=== PATIENT | female | born 1940 | race Caucasian/White ===

== ENCOUNTER → 2023-06-07 11:47 | Outpatient (REF) | payer MEDICARE, SELFPAY ==
[2023-06-07 11:46] LABS: % Basophils 0.3 % (0-2); % Eosinophils 1.3 % (0-6); % Immature Granulocytes 0.5 % (0-0.5); % Neutrophils 65.9 % (42.2-75.2); Absolute Eosinophils 0.1 10^3/uL (0-0.7); Absolute Lymphocytes 1.3 10^3/uL (1.2-3.4); Absolute Monocytes 0.7 10^3/uL (0.1-0.6); Hematocrit 30.6 % (37.0-47.0); Hemoglobin 9.7 g/dL (12.0-16.0); Mean Corp Hgb Conc. 31.7 g/dL (33.0-37.0); Mean Corpuscular Hgb 28.5 pg (27.0-31.0); Mean Platelet Volume 12.1 fL (7.4-10.4); Nucleated Red Blood Cells % 0 %; Platelet Count 144 10^3/uL (130-400); Red Cell Dist. Width 16.3 % (11.5-14.5); White Blood Cell Count 6.1 10^3/uL (4.8-10.8)
[2023-06-07 12:07] LABS: ALT (SGPT) 16 U/L (0-35); AST (SGOT) 22 U/L (14-36); Albumin 3.1 g/dl (3.5-5.0); Alkaline Phosphatase 60 U/L (38-126); Blood Urea Nitrogen 29 mg/dl (7-17); Calcium 9.1 mg/dl (8.4-10.2); Carbon Dioxide 24 mmol/L (22-30); Chloride 102 mmol/L (98-107); Glucose 135 mg/dl (70-99); Potassium 3.9 mmol/L (3.5-5.1); Sodium 135 mmol/L (135-145); Total Bilirubin 0.7 mg/dl (0.2-1.3); Total Protein 5.7 g/dl (6.3-8.2); eGFR 37.56
[2023-06-07 14:59] LABS: Iron 70 ug/dl (37-170)
[2023-06-07 15:09] LABS: Percent Saturation 27 % (20-50); Total Iron Binding Capacity 252 ug/dl (265-497)
== END ==
LOC: OIDL 11:47
PROVIDERS: ATTENDING PHYSICIAN Internal Medicine Hematology & Oncology
DX: C50.212 Malignant neoplasm of upper-inner quadrant of left female breast (principal)
CPT/HCPCS: 80053; 82728; 83540; 83550; 85025

== ENCOUNTER → 2023-08-02 10:09 | Outpatient (REF) | payer MEDICARE, SELFPAY ==
[2023-08-02 10:27] LABS: % Basophils 0.2 % (0-2); % Immature Granulocytes 0.6 % (0-0.5); % Lymphocytes 28.3 % (20.5-51.1); % Monocytes 14.2 % (1.7-9.3); % Neutrophils 55.7 % (42.2-75.2); Absolute Eosinophils 0.1 10^3/uL (0-0.7); Absolute Lymphocytes 1.4 10^3/uL (1.2-3.4); Absolute Monocytes 0.7 10^3/uL (0.1-0.6); Absolute Neutrophils 2.8 10^3/uL (1.4-6.5); Hematocrit 32.3 % (37.0-47.0); Mean Corpuscular Hgb 27.5 pg (27.0-31.0); Mean Platelet Volume 11.3 fL (7.4-10.4); Platelet Count 156 10^3/uL (130-400); Red Blood Cell Count 3.63 10^6/uL (4.20-5.40); Red Cell Dist. Width 18.3 % (11.5-14.5)
[2023-08-02 11:42] LABS: ALT (SGPT) 16 U/L (0-35); AST (SGOT) 25 U/L (14-36); Albumin 3.5 g/dl (3.5-5.0); Alkaline Phosphatase 55 U/L (38-126); Blood Urea Nitrogen 30 mg/dl (7-17); Calcium 9.6 mg/dl (8.4-10.2); Carbon Dioxide 23 mmol/L (22-30); Chloride 108 mmol/L (98-107); Glucose 152 mg/dl (70-99); Iron 93 ug/dl (37-170); Potassium 3.9 mmol/L (3.5-5.1); Sodium 135 mmol/L (135-145); Total Bilirubin 0.8 mg/dl (0.2-1.3); Total Protein 6.1 g/dl (6.3-8.2)
[2023-08-02 11:51] LABS: Percent Saturation 37 % (20-50); Total Iron Binding Capacity 245 ug/dl (265-497)
== END ==
LOC: OIDL 10:09
PROVIDERS: ATTENDING PHYSICIAN Internal Medicine Hematology & Oncology
DX: C50.212 Malignant neoplasm of upper-inner quadrant of left female breast (principal)
CPT/HCPCS: 36415; 80053; 82565; 82728; 83540; 83550; 85025

== ENCOUNTER → 2023-08-10 11:12 | Outpatient (REF) | payer MEDICARE, SELFPAY ==
[2023-08-10 13:17] LABS: Blood Urea Nitrogen 23 mg/dl (7-17); Calcium 9.3 mg/dl (8.4-10.2); Carbon Dioxide 21 mmol/L (22-30); Chloride 107 mmol/L (98-107); Glucose 152 mg/dl (70-99); Potassium 3.9 mmol/L (3.5-5.1); Sodium 135 mmol/L (135-145)
== END ==
LOC: HWLAB 11:12
PROVIDERS: ATTENDING PHYSICIAN Physician Assistant; FAMILY PHYSICIAN Physician Assistant
DX: I50.22 Chronic systolic (congestive) heart failure (principal)
CPT/HCPCS: 36415; 80048

== ENCOUNTER → 2023-08-30 10:21 | Outpatient (REF) | payer MEDICARE, SELFPAY ==
[2023-08-30 10:45] LABS: % Basophils 0.4 % (0-2); % Eosinophils 0.8 % (0-6); % Immature Granulocytes 0.2 % (0-0.5); % Lymphocytes 25.9 % (20.5-51.1); % Monocytes 9.1 % (1.7-9.3); % Neutrophils 63.6 % (42.2-75.2); Absolute Lymphocytes 1.3 10^3/uL (1.2-3.4); Absolute Monocytes 0.4 10^3/uL (0.1-0.6); Absolute Neutrophils 3.1 10^3/uL (1.4-6.5); Hematocrit 37.5 % (37.0-47.0); Hemoglobin 11.9 g/dL (12.0-16.0); Mean Corp Hgb Conc. 31.7 g/dL (33.0-37.0); Mean Corpuscular Hgb 27.7 pg (27.0-31.0); Mean Corpuscular Volume 87.4 fL (81.0-99.0); Mean Platelet Volume 10.8 fL (7.4-10.4); Platelet Count 133 10^3/uL (130-400); Red Blood Cell Count 4.29 10^6/uL (4.20-5.40); Red Cell Dist. Width 16.8 % (11.5-14.5); White Blood Cell Count 4.8 10^3/uL (4.8-10.8)
[2023-08-30 11:53] LABS: ALT (SGPT) 16 U/L (0-35); AST (SGOT) 26 U/L (14-36); Albumin 3.6 g/dl (3.5-5.0); Alkaline Phosphatase 57 U/L (38-126); Blood Urea Nitrogen 33 mg/dl (7-17); Calcium 9.4 mg/dl (8.4-10.2); Carbon Dioxide 25 mmol/L (22-30); Chloride 104 mmol/L (98-107); Glucose 133 mg/dl (70-99); Iron 118 ug/dl (37-170); Sodium 132 mmol/L (135-145); Total Bilirubin 0.6 mg/dl (0.2-1.3); Total Protein 6.2 g/dl (6.3-8.2); eGFR 34.58
[2023-08-30 12:02] LABS: Percent Saturation 50 % (20-50); Total Iron Binding Capacity 236 ug/dl (265-497)
== END ==
LOC: OIDL 10:21
PROVIDERS: Internal Medicine Cardiovascular Disease; ATTENDING PHYSICIAN Internal Medicine Hematology & Oncology; FAMILY PHYSICIAN Physician Assistant
DX: C50.212 Malignant neoplasm of upper-inner quadrant of left female breast (principal)
CPT/HCPCS: 36415; 80048; 80053; 82728; 83540; 83550; 85025

== ENCOUNTER → 2023-09-20 09:16 | Outpatient (REF) | payer MEDICARE, SELFPAY ==
[2023-09-20 12:14] LABS: % Basophils 0.7 % (0-2); % Eosinophils 1.6 % (0-6); % Immature Granulocytes 0.2 % (0-0.5); % Lymphocytes 41.9 % (20.5-51.1); % Monocytes 13.7 % (1.7-9.3); % Neutrophils 41.9 % (42.2-75.2); Absolute Eosinophils 0.1 10^3/uL (0-0.7); Absolute Lymphocytes 2.4 10^3/uL (1.2-3.4); Absolute Monocytes 0.8 10^3/uL (0.1-0.6); Absolute Neutrophils 2.4 10^3/uL (1.4-6.5); Hematocrit 34.2 % (37.0-47.0); Hemoglobin 10.9 g/dL (12.0-16.0); Mean Corp Hgb Conc. 31.9 g/dL (33.0-37.0); Mean Corpuscular Hgb 27.6 pg (27.0-31.0); Mean Corpuscular Volume 86.6 fL (81.0-99.0); Mean Platelet Volume 11.5 fL (7.4-10.4); Nucleated Red Blood Cells % 0 %; Platelet Count 142 10^3/uL (130-400); Red Blood Cell Count 3.95 10^6/uL (4.20-5.40); Red Cell Dist. Width 17.1 % (11.5-14.5); White Blood Cell Count 5.6 10^3/uL (4.8-10.8)
[2023-09-20 12:21] LABS: Erythrocyte Sed Rate 24 mm/hour (0-20)
[2023-09-20 12:29] LABS: ALT (SGPT) 14 U/L (0-35); AST (SGOT) 22 U/L (14-36); Albumin 3.3 g/dl (3.5-5.0); Alkaline Phosphatase 59 U/L (38-126); Blood Urea Nitrogen 26 mg/dl (7-17); Calcium 9.4 mg/dl (8.4-10.2); Carbon Dioxide 27 mmol/L (22-30); Chloride 105 mmol/L (98-107); Glucose 100 mg/dl (70-99); Potassium 4.2 mmol/L (3.5-5.1); Sodium 137 mmol/L (135-145); Total Bilirubin 0.7 mg/dl (0.2-1.3); Total Protein 5.9 g/dl (6.3-8.2); eGFR 34.36
[2023-09-20 12:39] LABS: C-Reactive Protein < 5.00 mg/L (0.0-10.00)
== END ==
LOC: HWLAB 09:16
PROVIDERS: ATTENDING PHYSICIAN Internal Medicine Rheumatology; FAMILY PHYSICIAN Physician Assistant
DX: M05.9 Rheumatoid arthritis with rheumatoid factor, unspecified (principal)
CPT/HCPCS: 36415; 80053; 85025; 85652; 86140

== ENCOUNTER → 2023-09-27 09:13 | Outpatient (REF) | payer MEDICARE, SELFPAY ==
[2023-09-27 09:37] LABS: % Basophils 0.2 % (0-2); % Eosinophils 1.7 % (0-6); % Immature Granulocytes 0.2 % (0-0.5); % Lymphocytes 32.9 % (20.5-51.1); % Monocytes 11.1 % (1.7-9.3); % Neutrophils 53.9 % (42.2-75.2); Absolute Eosinophils 0.1 10^3/uL (0-0.7); Absolute Lymphocytes 1.3 10^3/uL (1.2-3.4); Absolute Monocytes 0.5 10^3/uL (0.1-0.6); Absolute Neutrophils 2.2 10^3/uL (1.4-6.5); Hematocrit 33.7 % (37.0-47.0); Hemoglobin 10.7 g/dL (12.0-16.0); Mean Corp Hgb Conc. 31.8 g/dL (33.0-37.0); Mean Corpuscular Hgb 27.9 pg (27.0-31.0); Mean Platelet Volume 10.4 fL (7.4-10.4); Platelet Count 121 10^3/uL (130-400); Red Blood Cell Count 3.83 10^6/uL (4.20-5.40); Red Cell Dist. Width 16.7 % (11.5-14.5); White Blood Cell Count 4.1 10^3/uL (4.8-10.8)
[2023-09-27 11:00] LABS: Blood Urea Nitrogen 22 mg/dl (7-17); Iron 69 ug/dl (37-170)
[2023-09-27 11:08] LABS: Percent Saturation 30 % (20-50); Total Iron Binding Capacity 228 ug/dl (265-497)
== END ==
LOC: OIDL 09:13
PROVIDERS: ATTENDING PHYSICIAN Internal Medicine Hematology & Oncology; FAMILY PHYSICIAN Physician Assistant
DX: C50.212 Malignant neoplasm of upper-inner quadrant of left female breast (principal)
CPT/HCPCS: 36415; 82565; 82728; 83540; 83550; 84520; 85025

== ENCOUNTER → 2023-10-25 09:24 | Outpatient (REF) | payer MEDICARE, SELFPAY ==
[2023-10-25 09:48] LABS: % Basophils 0.4 % (0-2); % Eosinophils 1.5 % (0-6); % Immature Granulocytes 0.2 % (0-0.5); % Lymphocytes 31.4 % (20.5-51.1); % Monocytes 12.3 % (1.7-9.3); % Neutrophils 54.2 % (42.2-75.2); Absolute Eosinophils 0.1 10^3/uL (0-0.7); Absolute Lymphocytes 1.5 10^3/uL (1.2-3.4); Absolute Monocytes 0.6 10^3/uL (0.1-0.6); Absolute Neutrophils 2.5 10^3/uL (1.4-6.5); Hematocrit 36.2 % (37.0-47.0); Hemoglobin 11.4 g/dL (12.0-16.0); Mean Corp Hgb Conc. 31.5 g/dL (33.0-37.0); Mean Corpuscular Hgb 27.6 pg (27.0-31.0); Mean Corpuscular Volume 87.7 fL (81.0-99.0); Mean Platelet Volume 11.2 fL (7.4-10.4); Platelet Count 121 10^3/uL (130-400); Red Blood Cell Count 4.13 10^6/uL (4.20-5.40); Red Cell Dist. Width 17.2 % (11.5-14.5); White Blood Cell Count 4.6 10^3/uL (4.8-10.8)
[2023-10-25 10:35] LABS: ALT (SGPT) 15 U/L (0-35); AST (SGOT) 24 U/L (14-36); Albumin 3.7 g/dl (3.5-5.0); Alkaline Phosphatase 55 U/L (38-126); Blood Urea Nitrogen 30 mg/dl (7-17); Calcium 9.8 mg/dl (8.4-10.2); Carbon Dioxide 23 mmol/L (22-30); Chloride 107 mmol/L (98-107); Glucose 107 mg/dl (70-99); Sodium 137 mmol/L (135-145); Total Bilirubin 0.8 mg/dl (0.2-1.3); Total Protein 6.2 g/dl (6.3-8.2)
== END ==
LOC: OIDL 09:24
PROVIDERS: ATTENDING PHYSICIAN Internal Medicine Hematology & Oncology; FAMILY PHYSICIAN Family Medicine
DX: C50.212 Malignant neoplasm of upper-inner quadrant of left female breast (principal)
CPT/HCPCS: 36415; 80053; 85025

== ENCOUNTER 2023-11-11 20:44 | Inpatient (IN) | payer MEDICARE, SELFPAY ==
[2023-11-11] VITALS (7 sets, daily range): BP systolic 149–189; BP diastolic 62–96; BMI 26.3; BMI 25.9
--- NOTE | 2023-11-11 17:33 | ED.GENMED ---
History of Present Illness
General
Chief Complaint: Abdominal Symptoms
Source: patient and family
Time Seen by Provider: 11/11/23 17:17
History of Present Illness
History of Present Illness:
83yoF with a history of breast cancer, atrial fibrillation on Xarelto, rheumatoid arthritis on daily prednisone, hypertension presenting with her daughter for malaise x 1 week. Patient reports multiple vague symptoms including nausea, decreased
appetite, and feeling cold over the past week. Daughter states she has not been eating or drinking much despite encouragement. Patient states she just does not feel well. She denies any fevers. Patient is also experiencing diarrhea although she
states this is chronic for her. She denies any fevers, chest pain, shortness of breath, abdominal pain, headache. No recent falls.
Past History
Past History
ED Past Medical History: Negative HTN, Hypercholesterolemia or IDDM
ED Past Surgical History: Orthopedic; Negative Appendectomy or Brain
Social History
Tobacco: Non-smoker
Alcohol: Occasional
Drug: None
Personal:
Living: with family
Employment: Retired
Family History
Family History: Hypertension
Phy Exam
Physical Exam
Physical Exam:
Elderly female resting in bed. Appears fatigued, non-toxic.
General Physical Exam
General Presentation: well appearing and no apparent distress
General Skin: warm and dry
General Habitus: elderly
General Mental: alert
Cardiovascular Exam
Cardiovascular Exam: regular rate/rhythm
Heart Sounds: normal
Pulmonary Exam
Pulmonary Exam: lungs clear, no respiratory distress, no rales, no crackles, no rhonchi and no wheezing
Gastrointestinal Exam
Gastrointestinal Exam: non tender, soft and non distended
Musculoskeletal Exam
Musculoskeletal Exam: no edema
Course
Orders/Labs/Results
Orders:
Orders
11/11/23 17:05
Electrocardiogram (*1) Urgent
Reason for Study: Abdominal Pain
EKG- Treatment ONCE
11/11/23 17:32
0.9% Sodium Chloride 500 ml [Nss] 500 ml IV BOLUS
Ondansetron Injectable [Zofran] 4 mg IV NOW STA
11/11/23 17:33
CR Chest - 2 Views Urgent
Comment:
Reason For Exam: Nausea
11/11/23 18:20
Complete Blood Count/With Diff Urgent
Comprehensive Metabolic Panel Urgent
Lipase Urgent
Magnesium Urgent
Troponin I Urgent
11/11/23 18:30
Urinalysis Reflex To Culture Urgent
Date Specimen was Collected: 11/11/23
Time Specimen was Collected: 17:35
11/11/23 19:20
Magnesium Sulfate 1 grams 0.9% Sodium Chloride 100 ml [Nss] 100 ml IV NOW
11/11/23 20:27
Admit/Transfer Patient As Directed
Co-Sign Provider:
Level of Care: Inpatient admission
Assign to:: Telemetry
Physician / Group: Hospitalist
Diagnosis: Malaise
Reason for Telemetry: Arrhythmia
Date to Stop Telemetry: 11/14/23
Time to Stop Telemetry: 11:00
Reason for Hospitalization: malaise, hypovolemic hyponatremia
Expected length of stay greater than two midnights?: Yes
ELOS- Estimated Length of Stay in days: 3
I certify the patient meets the requirements for IP care: Yes
11/11/23 20:32
Code Status As Directed
Resuscitation Status: Do not resuscitate
Reached after discussion with pt or family/Healthcare POA: Yes
Decision communicated with: patient and daughter at the bedside
DNR Bracelet Application ONCE
11/14/23 11:00
DC Protocol for Telemetry ONCE
Abnormal Lab Results
11/11/23
18:20
RBC 3.79 L 10^6/uL
(4.20-5.40)
Hgb 10.4 L g/dL
(12.0-16.0)
Hct 31.2 L %
(37.0-47.0)
RDW 16.2 H %
(11.5-14.5)
Plt Count 107 L 10^3/uL
(130-400)
MPV 12.3 H fL
(7.4-10.4)
Absolute Monos (auto) 0.9 H 10^3/uL
(0.1-0.6)
Monocytes % 16.9 H %
(1.7-9.3)
Sodium 128 L mmol/L
(135-145)
Carbon Dioxide 20 L mmol/L
(22-30)
BUN 24 H mg/dl
(7-17)
Magnesium 1.4 L mg/dl
(1.6-2.3)
Total Protein 5.9 L g/dl
(6.3-8.2)
Albumin 3.4 L g/dl
(3.5-5.0)
11/11/23 18:20
11/11/23 18:20
Vital Signs
Initial and Last Documented VS:
Initial Vital Signs
Pulse Resp BP Pulse Ox
71 20 149/89 98
11/11/23 16:49 11/11/23 16:49 11/11/23 16:49 11/11/23 16:49
Last Documented Vital Signs
Pulse Resp BP Pulse Ox
62 16 169/63 97
11/11/23 20:30 11/11/23 20:30 11/11/23 20:00 11/11/23 20:30
MDM/Problems Addressed
Differential Diagnosis Includes:
83yoF presenting for multiple vague symptoms. Patient has been feeling unwell x 1 week. She reports nausea, decreased p.o. intake, and feeling cold. She is afebrile and hemodynamically stable. Patient appears fatigued but is nontoxic. Remainder
of exam is reassuring. Differential diagnosis is broad as presentation is nonspecific. Differential diagnosis includes but is not limited to: Gastroenteritis, dehydration, electrolyte abnormality, LILA, ACS, infection
Initial ED plan: Check cardiac labs, magnesium, UA, EKG, chest x-ray. IV Zofran and fluid bolus for symptoms.
*EKG
Interpreted by ED Provider?: Yes
EKG Intrepretation Date: 11/11/23
Heart Rate: 66
Rate: normal
Rhythm: sinus
[place]: normal axis
Interval: normal interval
QRS Pattern: normal QRS
Ischemia: no ischemia
*Critical Care Note
Total Time (30-74mins, 75-104mins- exclusive of procedures): Not Applicable
Update Note
Update Note:
Labs reveal a sodium of 128 which appears new. Magnesium 1.4 which was replaced. Remainder of labs overall unremarkable. No ischemic changes on EKG and troponin is normal. Chest x-ray shows small left pleural effusion but otherwise negative for
acute findings. Given electrolyte abnormalities and degree of weakness, she was admitted for further management.
ED Attending Note
-
Portions of this chart may have been created with voice recognition software.� Occasional wrong word or��sound alike� substitutions may have occurred due to the inherent limitations of voice recognition software.
Discharge Plan
Departure
Patient Disposition: Admit
Date of Disposition: 11/11/23
Time of Disposition: 20:15
Presentation/result/management discussed w/ accepting MD/DO: Hospitalist
Discharge Problem:
Malaise, Nausea, Acute hyponatremia, Hypomagnesemia
Interventions
Interventions:
*Risk Screen - Suicide Last Done: 11/11/23 16:58
*General Assessment Last Done: 11/11/23 16:58
*Neglect/Abuse Screening Last Done: 11/11/23 16:58
ED- Fall Risk Assessment Last Done: 11/11/23 16:58
*ED COVID-19 Vaccine History Last Done: 11/11/23 16:58
BU-Icmxex-Hqyyhpgajo Assessment Last Done: 11/11/23 16:58
[2023-11-11] MEDS: NSS 500 IV (18:22)
[2023-11-11] MEDS: ZOFRAN 4 MG IV (18:26)
[2023-11-11 18:45] LABS: Urine Albumin Negative (Neg - Trace); Urine Bilirubin Negative (Negative); Urine Character Clear (Clear); Urine Color Straw; Urine Glucose Negative (Negative); Urine Ketone Negative (Negative); Urine Leukocyte Negative (Negative); Urine Nitrite Negative (Negative); Urine Occult Blood Negative (Negative); Urine Urobilinogen Negative (Neg - 1+); Urine pH 6.5 (5.0-9.0)
[2023-11-11 18:47] LABS: % Basophils 0.4 % (0-2); % Immature Granulocytes 0.2 % (0-0.5); % Lymphocytes 32.1 % (20.5-51.1); % Monocytes 16.9 % (1.7-9.3); % Neutrophils 49.4 % (42.2-75.2); Absolute Eosinophils 0.1 10^3/uL (0-0.7); Absolute Lymphocytes 1.6 10^3/uL (1.2-3.4); Absolute Monocytes 0.9 10^3/uL (0.1-0.6); Absolute Neutrophils 2.5 10^3/uL (1.4-6.5); Hematocrit 31.2 % (37.0-47.0); Hemoglobin 10.4 g/dL (12.0-16.0); Mean Corp Hgb Conc. 33.3 g/dL (33.0-37.0); Mean Corpuscular Hgb 27.4 pg (27.0-31.0); Mean Corpuscular Volume 82.3 fL (81.0-99.0); Mean Platelet Volume 12.3 fL (7.4-10.4); Nucleated Red Blood Cells % 0 %; Platelet Count 107 10^3/uL (130-400); Red Blood Cell Count 3.79 10^6/uL (4.20-5.40); Red Cell Dist. Width 16.2 % (11.5-14.5); White Blood Cell Count 5.1 10^3/uL (4.8-10.8)
[2023-11-11 19:01] LABS: ALT (SGPT) 16 U/L (0-35); AST (SGOT) 31 U/L (14-36); Albumin 3.4 g/dl (3.5-5.0); Alkaline Phosphatase 63 U/L (38-126); Blood Urea Nitrogen 24 mg/dl (7-17); Calcium 9.3 mg/dl (8.4-10.2); Carbon Dioxide 20 mmol/L (22-30); Chloride 100 mmol/L (98-107); Estimated Creatinine Clearance 32 ml/min; Glucose 88 mg/dl (70-99); Magnesium 1.4 mg/dl (1.6-2.3); Potassium 4.2 mmol/L (3.5-5.1); Sodium 128 mmol/L (135-145); Total Bilirubin 0.7 mg/dl (0.2-1.3); Total Protein 5.9 g/dl (6.3-8.2)
[2023-11-11 19:02] LABS: Lipase 212 U/L (23-300)
[2023-11-11 19:03] LABS: Troponin I < 0.012 ng/ml
--- NOTE | 2023-11-11 20:09 | HPS.HSE ---
Family Physician
-
Family Physician: NOT KNOW UNKNOWN - PT DOES
Chief Complaint
-
malaise
History of Present Illness
83yo woman with a history of breast cancer, atrial fibrillation on Xarelto, rheumatoid arthritis on daily prednisone, hypertension presenting with her daughter for malaise x 1 week. Patient states that she has been feeling cold, and has had mild
nausea. No other particular focal symptoms or complaints. When asked about the pleural effusion seen on the x-ray, she states she believes this is a chronic issue. She has received a cardioversion in the past for afib.
Medical History
Past Medical History
Past Medical History: Reports Other
Additional Past Medical History:
Rheumatoid arthritis involving multiple sites,
Persistent atrial fibrillation
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
Generalized anxiety disorder
Mixed hyperlipidemia
Malignant neoplasm of right female breast, unspecified estrogen receptor status,
Moderate episode of recurrent major depressive disorder
Type 2 diabetes mellitus without complication, without long-term current use of insulin
Essential hypertension
Past Surgical History: Reports Other
Additional Past Surgical History:
See above
Social History
Tobacco: Non-smoker
Alcohol: None
Drug: None
Employment: Not Employed
Family History
Family History: Not pertinent
Allergies / Home Medications
Allergies reflects when Allergies were last updated in [employer].
Home Medications with original date entered in [employer]
Allergy/Medication List:
Allergies
Allergy/AdvReac Type Severity Reaction Status Date / Time
aspirin [Aspirin] Allergy Shortness Verified 11/11/23 16:50
of Breath
Home Medications
Lactobacillus acidophilus 10 billion cell capsule (Probiotic) 10,000 mmu cells PO DAILY 03/20/23
amiodarone 200 mg tablet 200 mg PO BID 03/20/23
atorvastatin 10 mg tablet 10 mg PO QPM 03/20/23
cholecalciferol (vitamin D3) 25 mcg (1,000 unit) tablet (Vitamin D3) 25 mcg PO DAILY 03/20/23
gabapentin 100 mg capsule 100 mg PO BID 03/20/23
leflunomide 20 mg tablet 20 mg PO DAILY 03/20/23
metformin 500 mg tablet 500 mg PO QPM 03/20/23
metoprolol tartrate 100 mg tablet 50 mg PO BID 03/20/23
multivitamin 1 tab PO DAILY 03/20/23
prednisone 2.5 mg tablet 2.5 mg PO DAILY 03/20/23
rivaroxaban 15 mg tablet (Xarelto) 15 mg PO QPM 03/20/23
Review of Systems
-
History Source: Patient
A 12 point ROS was completed and negative except as noted: Yes
Constitutional: Reports Other (feels cold)
Physical Exam
Vital Signs
Vital Signs
Pulse Resp BP Pulse Ox
62 13 161/71 98
11/11/23 19:15 11/11/23 19:15 11/11/23 19:00 11/11/23 19:15
Physical Exam
General: Well Developed, Well Nourished, No Apparent Distress, Comfortable and Conversant
HEENT: NormoCephalic, Moist mucous membranes, No Ptosis, Nose Appears Normal and Ears Appear Normal
Respiratory: Clear and Decreased Breath Sounds
Cardiac: S1/S2 and Regular Rhythm
GI: Soft, Non Tender and Non Distended
Musculoskeletal: No Clubbing, No Cyanosis and No Edema
Skin: Warm and Dry; No Rash or Jaundice
Neuro: Awake, Alert and Oriented
Psych: Calm
Laboratory Results
-
11/11/23 18:20
11/11/23 18:20
Laboratory Results
Total Bilirubin 0.7 mg/dl (0.2-1.3) 11/11/23 18:20
AST 31 U/L (14-36) 11/11/23 18:20
ALT 16 U/L (0-35) 11/11/23 18:20
Alkaline Phosphatase 63 U/L (38-126) 11/11/23 18:20
Troponin I < 0.012 ng/ml 11/11/23 18:20
Lipase 212 U/L (23-300) 11/11/23 18:20
Data Reviewed
-
Lab Data: Labs Reviewed by me
Impression/Plan
-
IMPRESSION:
83 woman with malaise and the following findings:
Na 128
Mag 1.4
BUN/Creat 24/1.0; ratio >20
CXR -> pleural effusion
UA does not show obvious infection
PLAN:
1. Malaise - source unclear, but may be related to electrolyte imbalance. Could also be from med side effects.
Fix electrolytes
PT consult in am
Check TSH
2. Mild anemia, likely from chronic illnesses. No indication for transfusion at this time.
Check H/H in am
3. Low Na, Low mag, could be from SIADH, given effusion, but hypovolemic tonight.
Fix now given acute symptoms
Follow closely as outpatient once fixed
may end up needing free water restriction
4. BUN/Creat > 20
Iv saline tonight
Recheck in am
5. Pleural effusion
try to obtain outpatient records to see if chronic
If new, consider pleuracentesis
Code: DNR (witnessed by daughter at bedside)
VCD for DVTp
[2023-11-11] MEDS: MAGNESIUM SULFATE 102 GRAMS IV (20:11)
--- NOTE | 2023-11-11 22:09 | PTCARENOTE ---
Pt arrived to unit @2200 assisted x1 with staff to bed. Pt AAOx3 able to make needs known, denies chest pain VSS. Oriented to room and hospital policies call garcia within reach
[2023-11-11] MEDS: NSS 1000 IV (22:26)
[2023-11-11] MEDS: COMPAZINE 5 MG IV (23:13)
[2023-11-12] VITALS (8 sets, daily range): BP systolic 136–178; BP diastolic 62–92
[2023-11-12 05:24] LABS: Hematocrit 26.7 % (37.0-47.0); Hemoglobin 8.9 g/dL (12.0-16.0); Mean Corp Hgb Conc. 33.3 g/dL (33.0-37.0); Mean Corpuscular Hgb 27.4 pg (27.0-31.0); Mean Corpuscular Volume 82.2 fL (81.0-99.0); Mean Platelet Volume 12.2 fL (7.4-10.4); Platelet Count 102 10^3/uL (130-400); Red Blood Cell Count 3.25 10^6/uL (4.20-5.40); Red Cell Dist. Width 15.9 % (11.5-14.5); White Blood Cell Count 4.2 10^3/uL (4.8-10.8)
[2023-11-12 05:49] LABS: Blood Urea Nitrogen 19 mg/dl (7-17); Calcium 8.5 mg/dl (8.4-10.2); Carbon Dioxide 23 mmol/L (22-30); Chloride 105 mmol/L (98-107); Estimated Creatinine Clearance 30 ml/min; Glucose 74 mg/dl (70-99); Magnesium 1.4 mg/dl (1.6-2.3); Potassium 3.8 mmol/L (3.5-5.1); Sodium 131 mmol/L (135-145); eGFR 49.86
[2023-11-12 06:01] LABS: Troponin I < 0.012 ng/ml
[2023-11-12 06:21] LABS: TSH 2.28 uIU/ml (0.47-4.68)
[2023-11-12] MEDS: VITAMIN D3 (cholecalciferol) 25 MCG PO (07:55)
[2023-11-12] MEDS: VISBIOME 1 CAP PO (07:55)
[2023-11-12] MEDS: DELTASONE 2.5 MG PO (07:55)
[2023-11-12] MEDS: PACERONE 200 MG PO ×2 (07:55→20:05)
[2023-11-12] MEDS: NEURONTIN 100 MG PO ×2 (07:55→20:05)
[2023-11-12] MEDS: LOPRESSOR 50 MG PO ×2 (07:56→20:05)
[2023-11-12] MEDS: NSS 1000 IV (07:58)
[2023-11-12] MEDS: MAGNESIUM SULFATE 100 IV (09:25)
[2023-11-12 10:05] LABS: Iron 59 ug/dl (37-170)
[2023-11-12 10:14] LABS: Percent Saturation 28 % (20-50); Total Iron Binding Capacity 207 ug/dl (265-497)
[2023-11-12 10:37] LABS: Cortisol, Random 5.8 ug/dl
[2023-11-12] MEDS: ZOFRAN 4 MG IV (12:14)
[2023-11-12] MEDS: OMNIPAQUE 50 ML PO (12:33)
[2023-11-12 13:10] LABS: COVID-19 Antigen Negative (Negative)
--- NOTE | 2023-11-12 13:10 | CM ---
Reviewed the chart notes and spoke with the patient at the bedside. The patient resides with her daughter in a two story home with one step to enter. The patient has a rolling walker and stair glide. The patient reports being in a SNF in [place]
and having [place] in [place]. The patient confirmed her pharmacy of choice is [facility]. CM continues to be available to patient/family and is monitoring medical plan for needs at discharge.
Plan: Discharge plans will depend on the patient's progress.
--- NOTE | 2023-11-12 13:12 | W.PN.HOSP.TC ---
Today's Communication/Plan
-
pt/ot
ct imaging
symptomatic control
monitor electrolytes, Na, Mag with resuscitation
Assessment / Plan
Assessment / Plan
Physical Exam
General: Well Developed, Well Nourished, No Apparent Distress, Comfortable and Conversant
HEENT: NormoCephalic, Moist mucous membranes, No Ptosis, Nose Appears Normal and Ears Appear Normal
Respiratory: Clear and Decreased Breath Sounds
Cardiac: S1/S2 and Regular Rhythm
GI: Soft, Non Tender and Non Distended
Musculoskeletal: No Clubbing, No Cyanosis and No Edema
Skin: Warm and Dry; No Rash or Jaundice
Neuro: Awake, Alert and Oriented
Psych: Calm
83 woman with malaise
#Continuous weakness/Malaise
-has symptoms of chills over the week; on chronic steroids; only 3-4 lb weight loss in 3-4 months (lack of diet)
-Possibly 2/2 to hyponatremia v other infectious etiology
-cannot remember last colonoscopy
-PT/OT
-monitor fever curve, wbc
-COVID, flu Swab
-Iron sat ok
-Random cortisol WNL, TSH WNL
-CT A/P without contrast + oral contast due to decreased renal clearance in setting of persistent weakness/nausea
-no urinary symptoms
#Mild anemia, likely from chronic illnesses. No indication for transfusion at this time.
Check H/H in am
#Hyponatremia, mild
-monitor with resuscitation
# Pleural effusion
states chronic
-may need thora for eval
-ct imaging for better eval
#Hypomagnesemia
-monitor and replete
DM
-hold meteformin
-aiss
Code: DNR (witnessed by daughter at bedside)
Xarelto for DVTp
Total time spent on today's encounter was 50 minutes which included time spent in counseling the patient/family regarding diagnosis and treatment plan as listed above, goals of care, and symptom management. Case was discussed with nursing staff,
specialists, and care coordinators/case management. All labs and imaging personally reviewed by me. Remainder the time spent in detailed review of previous records, lab data, imaging, and other medical provider documentation.
Anticipated Discharge: 24 - 48 hours
Subjective/Interval History
-
Date of Service: November 12, 2023
still nauseous
Objective Data
-
Labs:
Laboratory Results
11/12/23
05:11
WBC 4.2 L
Hgb 8.9 L
Hct 26.7 L
Plt Count 102 L
Sodium 131 L
Potassium 3.8
Chloride 105
Carbon Dioxide 23
BUN 19 H
Creatinine 1.1 H
Glucose 74
Calcium 8.5
Vital Signs:
Vital Signs
Temp Pulse Resp BP Pulse Ox
97.6 F 58 16 156/70 98
11/12/23 11:15 11/12/23 11:15 11/12/23 11:15 11/12/23 11:15 11/12/23 11:15
I&O
11/11/23 11/12/23 11/13/23
06:59 06:59 06:59
Intake Total 1220 / 1220
Output Total 250 / 250
Balance 970 / 970
Review of Systems
-
History Source: Patient
All other systems: Not reviewed unless documented
Data Reviewed
-
Diagnostic Radiology: Image personally visualized and interpreted and Report Reviewed by me
Labs: Labs Reviewed by me
[2023-11-12] MEDS: LR 1000 IV (13:43)
[2023-11-12 16:45] LABS: Glucose - Point of Care 144 mg/dl (70-99)
[2023-11-12] MEDS: NOVOLOG FLEXPEN-LOW RESISTANCE SC (17:35)
[2023-11-12] MEDS: XARELTO 15 MG PO (17:36)
[2023-11-12] MEDS: LIPITOR 10 MG PO (17:36)
[2023-11-12 22:17] LABS: Glucose - Point of Care 116 mg/dl (70-99)
[2023-11-13] VITALS (9 sets, daily range): BP systolic 127–181; BP diastolic 54–72; PULSE 88; O2SAT 98; BMI 25.9
[2023-11-13] MEDS: LR 1000 IV (02:04)
[2023-11-13 05:40] LABS: Hematocrit 27.9 % (37.0-47.0); Hemoglobin 9.5 g/dL (12.0-16.0); Mean Corp Hgb Conc. 34.1 g/dL (33.0-37.0); Mean Corpuscular Hgb 27.9 pg (27.0-31.0); Mean Corpuscular Volume 82.1 fL (81.0-99.0); Mean Platelet Volume 12.3 fL (7.4-10.4); Platelet Count 109 10^3/uL (130-400); Red Cell Dist. Width 15.9 % (11.5-14.5); White Blood Cell Count 4.1 10^3/uL (4.8-10.8)
[2023-11-13] MEDS: LR IV (05:50)
[2023-11-13 05:56] LABS: ALT (SGPT) 14 U/L (0-35); AST (SGOT) 28 U/L (14-36); Albumin 2.9 g/dl (3.5-5.0); Alkaline Phosphatase 53 U/L (38-126); Blood Urea Nitrogen 13 mg/dl (7-17); Calcium 8.6 mg/dl (8.4-10.2); Carbon Dioxide 23 mmol/L (22-30); Chloride 103 mmol/L (98-107); Estimated Creatinine Clearance 41 ml/min; Glucose 83 mg/dl (70-99); Magnesium 2.1 mg/dl (1.6-2.3); Potassium 4.1 mmol/L (3.5-5.1); Sodium 129 mmol/L (135-145); Total Bilirubin 0.7 mg/dl (0.2-1.3); Total Protein 5.1 g/dl (6.3-8.2); eGFR > 60.00
[2023-11-13 07:13] LABS: Glucose - Point of Care 83 mg/dl (70-99)
[2023-11-13] MEDS: NEURONTIN 100 MG PO ×2 (07:52→19:55)
[2023-11-13] MEDS: NOVOLOG FLEXPEN-LOW RESISTANCE SC ×3 (07:52→16:56)
[2023-11-13] MEDS: VISBIOME 1 CAP PO (07:52)
[2023-11-13] MEDS: PACERONE 200 MG PO ×2 (07:52→19:55)
[2023-11-13] MEDS: DELTASONE 2.5 MG PO (07:52)
[2023-11-13] MEDS: VITAMIN D3 (cholecalciferol) 25 MCG PO (07:52)
[2023-11-13] MEDS: LOPRESSOR 50 MG PO ×2 (07:52→20:01)
[2023-11-13] MEDS: ZOFRAN 4 MG IV ×2 (07:56→14:24)
--- NOTE | 2023-11-13 08:50 | W.PN.HOSP.TC ---
Today's Communication/Plan
-
GI consult
Hold Xarelto
TTE
stop fluids
Assessment / Plan
Assessment / Plan
Physical Exam
General: Well Developed, Well Nourished, No Apparent Distress, Comfortable and Conversant
HEENT: NormoCephalic, Moist mucous membranes, No Ptosis, Nose Appears Normal and Ears Appear Normal
Respiratory: Clear and Decreased Breath Sounds
Cardiac: S1/S2 and Regular Rhythm
GI: Soft, Non Tender and Non Distended
Musculoskeletal: No Clubbing, No Cyanosis and No Edema
Skin: Warm and Dry; No Rash or Jaundice
Neuro: Awake, Alert and Oriented
Psych: Calm
Ms. Tania Alexandre is a 83 yo woman with hx afib on Xarelto, RA on daily prednisone, HTN who presents to the ER with malaise x 1 week, nausea and decreased appetite.
IMPRESSION:
1. Wall thickening at the level of the gastric antrum as above. Somewhat limited assessment on single noncontrast acquisition, changes related to peristalsis are possible. However the wall thickening does appear eccentric and inflammatory process
is suspected. This could be further evaluated with follow-up endoscopy. No other signs of an acute intra-abdominal process.
2. Cardiomegaly and mild CHF with small bilateral effusions, left greater than right.
3. Coronary and aortic atherosclerosis.
#Continuous weakness/Malaise
-has symptoms of chills over the week; on chronic steroids; only 3-4 lb weight loss in 3-4 months (lack of diet)
-TSH and cortisol WNL. covid and flu negative. no fevers or elevated WBC; iron sat OK
-add on vitamin B12
-CT A/P results above - will consult GI
-start IV Protonix
-no urinary symptoms
#Mild anemia, likely from chronic illnesses. No indication for transfusion at this time.
Check H/H in am
#Hyponatremia, mild
-now likely hypervolemic given CT findings
-stop IVF
-fluid restriction
# Pleural effusion
states chronic
-CT with findings of small bilateral effusions, left greater than right and e/o CHF
Heart Failure, unknown EF
bilateral pleural effusions
-stop fluids*
-TTE
Atrial Fibrillation
-hold Xarelto for possible procedure
-would bridge with heparin - patient reports CVA in past when off Xarelto x 1 week
-continue EXTRUSION BENDER Metoprolol
#Hypomagnesemia
-monitor and replete
DM
-hold meteformin
-aiss
Code: DNR (witnessed by daughter at bedside)
Xarelto for DVTp
Total time spent on today's encounter was 50 minutes which included time spent in counseling the patient/family regarding diagnosis and treatment plan as listed above, goals of care, and symptom management. Case was discussed with nursing staff,
specialists, and care coordinators/case management. All labs and imaging personally reviewed by me. Remainder the time spent in detailed review of previous records, lab data, imaging, and other medical provider documentation.
Anticipated Discharge: 24 - 48 hours
Subjective/Interval History
-
Date of Service: November 13, 2023
continues to feel nauseated
no pain
no fevers/chills
no chest pain or shortness of breath
Objective Data
-
Labs:
Laboratory Results
11/13/23
05:16
WBC 4.1 L
Hgb 9.5 L
Hct 27.9 L
Plt Count 109 L
Sodium 129 L
Potassium 4.1
Chloride 103
Carbon Dioxide 23
BUN 13
Creatinine 0.8
Glucose 83
Calcium 8.6
Total Bilirubin 0.7
AST 28
ALT 14
Alkaline Phosphatase 53
Vital Signs:
Vital Signs
Temp Pulse Resp BP Pulse Ox
97.5 F 63 17 181/71 98
11/13/23 07:14 11/13/23 07:52 11/13/23 07:14 11/13/23 07:52 11/13/23 07:14
I&O
11/12/23 11/13/23 11/14/23
06:59 06:59 06:59
Intake Total 1220 / 1220 3995 / 3995
Output Total 250 / 250
Balance 970 / 970 3995 / 3995
Review of Systems
-
History Source: Patient
All other systems: Reviewed and negative
Physical Exam
-
General: No Apparent Distress
HEENT: PERRLA
Respiratory: Clear to Auscultation; Negative Wheezes
Cardiac: Regular Rhythm and S1/S2
GI: Soft and Nontender
Musculoskeletal: No Edema
Skin: Warm and Dry; Negative Rash
Neuro: AO x 3
Psych: Calm
Data Reviewed
-
Diagnostic Radiology: Report Reviewed by me
Labs: Labs Reviewed by me
[2023-11-13] MEDS: NSS (PRESERVATIVE FREE) 10 ML IV ×2 (09:19→19:56)
[2023-11-13] MEDS: PROTONIX IV 40 MG IV ×2 (09:20→19:56)
--- NOTE | 2023-11-13 09:29 | CON.GI ---
Addendum entered and electronically signed by Jammie Vitale MD 11/13/23 17:35:
I saw and examined the patient.
The MIDDLE SCHOOL HISTORY TEACHER or PA's note was reviewed and I agree with the note.
Comment: 83-year-old female with history of atrial fibrillation on Xarelto, history of breast cancer, rheumatoid arthritis on prednisone, CVA, presenting with malaise, nausea in the last 2 weeks. Denies any significant abdominal pain but some
discomfort in the epigastric area, more nausea with dry heaves, no vomiting. No heartburn or trouble swallowing. Chronic diarrhea, 2-3 loose stool a day. No blood or black stool. In the ER, she had a CT scan of the abdomen and pelvis with oral
contrast only, wall thickening at the level of gastric antrum noted. No history of NSAID use or history of gastric ulcer. Colonoscopy in 2018 while she was in [place], unremarkable per patient.
In the ER, noted to have normocytic anemia, hyponatremia.
-Nausea and epigastric discomfort, CT scan showing thickening of the gastric antrum
Will need evaluation with upper endoscopy. Plan for EGD 11/15/2023
Last Xarelto dose was 11/12/2023 PM. Patient is on IV heparin given history of CVA off Xarelto in 2022.
Agree with PPI twice a day for now.
-Chronic diarrhea, no bowel movement yet today.
Agree with celiac panel.
If diarrhea occurs, will check stool studies.
-Thrombocytopenia noted since 2022
Original Note:
Consultation
-
Date/Time Consultation Requested: 11/13/23 @ 09:06
Date/Time Consultation Performed: 11/13/23 @ 09:30
Requesting Provider: Dr. Jocelyn Tay
Performing Provider: ITA Kee; Dr. Jammie Vitale
Reason for Consultation: abnormal CT showing gastric wall thickening
Medical History
Chief Complaint / HPI
Chief Complaint: mailaise
History of Present Illness:
The pt is an 83 yo female with a PMH significant for HTN, Afib on Xarelto, CVA, DM2, rheumatoid arthritis on chronic prednisone, breast CA diagnosed in 2018 status post mastectomy, lymph node resection and chemotherapy, ?Chronic pleural effusion,
lower extremity edema, who presented to the ER with complaints of malaise, nausea, and weight loss. We are being asked to evaluate for abnormal CT findings showing gastric antral wall thickening. Patient reports that she has been feeling unwell for
the past 1 to 2 weeks. She notes that she has chronic fatigue but has been feeling weaker and more fatigued than usual. She notes that her blood pressure has been somewhat higher, which she was being evaluated for. She also admits to chills but
denies fevers. She has been having nausea for about a week and has had a reduced appetite due to the symptoms. She notes losing about 3 to 4 pounds over the past 4 to 6 months unintentionally. She denies any vomiting but does admit to dry heaves
intermittently. She has also been having looser stools depending on what she eats. She notes this has been going on for quite some time although does not quantify the amount of time. She on average will have 3-4 loose bowel movements daily with
no evidence of black or blood in her stool. She reports very infrequently they are solid. She denies any workup for this in the past. She reports that on occasion she will have some difficulty with swallowing water but otherwise denies any overt
dysphagia or odynophagia. She denies any heartburn symptoms. She denies any abdominal pain although does have some tenderness in the epigastric area at times. She otherwise denies any chest pain, shortness of breath, dizziness, lightheadedness,
or hematemesis. She reports that she moved here last June from a [place] and lives with her daughter currently. She did travel to [place] in June/July but otherwise denies any recent travel or recent sick contacts. She denies any family
history of colon cancer or other GI cancers or disorders. She denies any use of NSAIDs on a regular basis and will take Tylenol as needed. She does take Xarelto for history of A-fib. She notes that she did have a stroke when she had required
holding for her Xarelto in the past. She has history of breast cancer status diagnosed in 2019 post left mastectomy/lymph node resection and did require chemotherapy for short time but did not tolerate this which was subsequently discontinued. She
does not know the name but does get monthly injections for her history of breast cancer. She had a colonoscopy around 2018 and did not have polyps at that time. She has never had an EGD. Routine labs reviewed today showing pertinent findings
including WBC 4.1, hemoglobin 9.5, MCV 82.1, platelet 209,000, sodium 129, potassium 4.1, BUN 13, creatinine 0.8, magnesium 2.1, total bilirubin 0.7, AST 20, ALT 14, alk phos 53, total protein 5.1, albumin 2.9. Iron studies were obtained without
evidence of iron deficiency. Vitamin B12 level is pending. TSH is normal at 2.28. COVID swab was negative. UA negative for infection. A CT of the abdomen, pelvis, and chest was done without IV contrast, with oral contrast showing wall
thickening at the level of the gastric antrum, with other findings as noted below. An echo was ordered which is pending given the presence of small pleural effusions and lower extremity edema. She was placed on a regular diet, along with IV PPI,
and continued on her regular medications. Her Xarelto was placed on hold yesterday evening.
Past Medical History
Past Medical History: Arrhythmias (afib on Xarelto), Cancer (breast CA), CVA, HTN, Hypercholesterolemia, NIDDM, Psychiatric (anxiety, depression) and Other (rheumatoid arthritis on chronic prednisone)
Past Surgical History: Gynecological (hysterectomy, left mastectomy)
Social History
Tobacco: Non-Smoker
Alcohol: None
Drug: None
Living: With Family
Family History
Family History: Reviewed & Not Pertinent
Allergies / Home Medications
Allergy/AdvReac Type Severity Reaction Status Date / Time
aspirin [Aspirin] Allergy Shortness Verified 11/11/23 16:50
of Breath
�Medication �Instructions �Recorded
amiodarone 200 mg tablet 100 mg PO 1XD AFIB 03/20/23
atorvastatin 10 mg tablet 10 mg PO QPM High Cholesterol 03/20/23
gabapentin 100 mg capsule 100 mg PO BID Pain 03/20/23
metformin 500 mg tablet 500 mg PO QPM Diabetes 03/20/23
metoprolol tartrate 100 mg tablet 50 mg PO BID Blood Pressure 03/20/23
multivitamin 1 tab PO DAILY Supplement 03/20/23
prednisone 2.5 mg tablet 2.5 mg PO DAILY INFLAMMATION 03/20/23
rivaroxaban 15 mg tablet (Xarelto) 15 mg PO QPM Blood Clot 03/20/23
Prevention/Tx
lisinopril 2.5 mg tablet 2.5 mg PO DAILY Blood Pressure 11/11/23
meclizine 50 mg tablet 50 mg PO DAILY PRN dizziness 11/11/23
ondansetron HCl 8 mg tablet 8 mg PO Q8H PRN nausea 11/11/23
Review of Systems
-
History Source: Patient
Constitutional: Reports Weight Loss, Fatigue and Chills
EENT: Reports No Symptoms
Respiratory: Reports No Symptoms
Cardiac: Reports No Symptoms
Abdomen/GI: Reports Nausea and Diarrhea
: Reports No Symptoms
Musculoskeletal: Reports No Symptoms
Skin: Reports No Symptoms
Neurological: Reports Weakness (generalized)
Vital Signs
Temp Pulse Resp BP Pulse Ox
97.5 F 63 17 181/71 98
11/13/23 07:14 11/13/23 07:52 11/13/23 07:14 11/13/23 07:52 11/13/23 08:00
Physical Exam
Exam
General: Well Developed, Well Nourished and No Apparent Distress
HEENT: Normocephalic, Anicteric and Atraumatic
Respiratory: Clear
Cardiac: S1/S2 and Regular Rhythm
Breast: Deferred by me
GI: Soft, Non Distended, Normal Bowel Sounds and Tender (epigastric area)
Rectal: Deferred by Provider
Musculoskeletal: Edema (+1-2 LE edema)
Skin: Warm and Dry
Neuro: Awake, Alert and Oriented
Psych: Calm
Results
WBC 4.1 10^3/uL (4.8-10.8) L 11/13/23 05:16
Hgb 9.5 g/dL (12.0-16.0) L 11/13/23 05:16
Hct 27.9 % (37.0-47.0) L 11/13/23 05:16
MCV 82.1 fL (81.0-99.0) 11/13/23 05:16
Plt Count 109 10^3/uL (130-400) L 11/13/23 05:16
Absolute Neuts (auto) 2.5 10^3/uL (1.4-6.5) 11/11/23 18:20
Sodium 129 mmol/L (135-145) L 11/13/23 05:16
Potassium 4.1 mmol/L (3.5-5.1) 11/13/23 05:16
Chloride 103 mmol/L (98-107) 11/13/23 05:16
Carbon Dioxide 23 mmol/L (22-30) 11/13/23 05:16
BUN 13 mg/dl (7-17) 11/13/23 05:16
Creatinine 0.8 mg/dL (0.6-1.0) 11/13/23 05:16
Calcium 8.6 mg/dl (8.4-10.2) 11/13/23 05:16
Total Bilirubin 0.7 mg/dl (0.2-1.3) 11/13/23 05:16
AST 28 U/L (14-36) 11/13/23 05:16
ALT 14 U/L (0-35) 11/13/23 05:16
Alkaline Phosphatase 53 U/L (38-126) 11/13/23 05:16
Lipase 212 U/L (23-300) 11/11/23 18:20
Diagnostic Image Results:
11/12/23 CT A/P w/o contrast: IMPRESSION:
1. Wall thickening at the level of the gastric antrum as above. Somewhat limited assessment on single noncontrast acquisition, changes related to peristalsis are possible. However the wall thickening does appear eccentric and inflammatory process
is suspected. This could be further evaluated with follow-up endoscopy. No other signs of an acute intra-abdominal process.
2. Cardiomegaly and mild CHF with small bilateral effusions, left greater than right.
3. Coronary and aortic atherosclerosis.
Prior GI Procedures:
EGD: none
Colonoscopy: ~2018 in [place] per pt no polyps
Assessment / Plan
-
The pt is an 83 yo female with a PMH significant for HTN, Afib on Xarelto, CVA, DM2, rheumatoid arthritis on chronic prednisone, breast CA diagnosed in 2018 status post mastectomy, lymph node resection and chemotherapy, ?Chronic pleural effusion,
lower extremity edema, who presented to the ER with complaints of malaise, nausea, and weight loss. We are being asked to evaluate for abnormal CT findings showing gastric antral wall thickening. Other notable findings on admission include
hyponatremia along with LILA and mild anemia. She does have some ongoing loose stools depending on her meals, with infrequent solid stools. She has had acute onset of progressive weakness, nausea, and mild weight loss with no changes in medications
recently or other evident cause. She does have some mild epigastric tenderness on exam and continues to have nausea with decreased appetite. CT imaging did show gastric wall thickening at the antrum with some cardiac findings as well as noted
above. She denies NSAID use. She has no active signs of bleeding. Infectious workup unrevealing. She has never had an EGD. IV PPI was started. Her Xarelto was placed on hold.
Problem list:
-weakness, fatigue, weight loss (3-4 lbs)
-nausea, epigastric tenderness
-loose stools
-abnormal CT showing antral wall thickening, small bilateral pleural effusions, cardiomegaly
-hyponatremia
-LILA, resolved
-normocytic anemia, more consistent with chronic anemia without iron deficiency
-thrombocytopenia
Other pertinent medical history:
-A-fib on Xarelto
-CVA
-Type 2 diabetes
-Rheumatoid arthritis on chronic prednisone
-History of breast cancer diagnosed in 2018 status postmastectomy, lymph node resection, and chemotherapy
-Hypertension
-Chronic lower extremity edema
-?chronic pleural effusion
Recommendations:
-Etiology of current symptoms unclear, possibly secondary to upper GI etiology such as gastritis versus peptic ulcer disease versus gastroparesis versus other. She is on chronic prednisone but denies use of NSAIDs.
---CT imaging showing gastric wall thickening with no other acute findings in the abdomen or pelvis (other cardiac findings as noted above).
-At this time to consider EGD given her ongoing findings along with her anemia and diarrhea, to rule out ulcer disease versus celiac versus H. pylori versus other. Will review with Dr. Vitale, to consider upper GI study as well pending her risk
(Echo is pending). Will need to hold Xarelto for 2 days, as discussed with Dr. Tay will need heparin bridging given history of stroke off of Xarelto.
-Will increase PPI to IV twice daily
-Continue with diet as tolerated
-PRN antiemetics
-Will check celiac panel
-Pending echo ordered by hospitalist given pleural effusions and lower extremity edema, to evaluate ejection fraction
-Monitor sodium levels
-Anemia unclear, with no iron deficiency. Vitamin B12 level pending. Possible chronic anemia. Also with thrombocytopenia. Consider hematology evaluation
-Further plan pending above
Data Reviewed
-
CT Scan: Report Reviewed by me
-
-
Thank you for consultation and allowing me to participate in the patient's care. Please call the education specialist GI physician during the after hours with any questions or concerns.
[2023-11-13 11:24] LABS: Vitamin B12 297 pg/ml (239-931)
[2023-11-13 11:57] LABS: Glucose - Point of Care 109 mg/dl (70-99)
--- NOTE | 2023-11-13 13:27 | CM ---
CM following re: discharge planning.
Reviewed pt's chart, met with pt.
PT and OT evaluations noted - pt has no skilled need.
D/C plan: home with no needs. Family to transport at discharge.
CM will follow with discharge plan updates as hospitalization progresses
[2023-11-13 15:02] LABS: APTT 32.8 Sec (23.4-35.0)
[2023-11-13 15:24] LABS: IgA 82 mg/dl (70-400)
[2023-11-13 16:54] LABS: Glucose - Point of Care 111 mg/dl (70-99)
[2023-11-13] MEDS: LIPITOR 10 MG PO (17:01)
[2023-11-13] MEDS: HEPARIN 25000 UNITS/250 ML IV (18:00)
[2023-11-13 21:33] LABS: Glucose - Point of Care 151 mg/dl (70-99)
[2023-11-14 01:36] LABS: APTT 111.7 Sec (23.4-35.0)
[2023-11-14 02:47] VITALS: BP 144/67
[2023-11-14 04:54] LABS: Hematocrit 26.7 % (37.0-47.0); Mean Corp Hgb Conc. 33.7 g/dL (33.0-37.0); Mean Corpuscular Volume 83.2 fL (81.0-99.0); Red Blood Cell Count 3.21 10^6/uL (4.20-5.40); White Blood Cell Count 4.3 10^3/uL (4.8-10.8)
[2023-11-14 05:21] VITALS: BMI 26.7
[2023-11-14 05:47] LABS: Blood Urea Nitrogen 17 mg/dl (7-17); Carbon Dioxide 24 mmol/L (22-30); Chloride 103 mmol/L (98-107); Estimated Creatinine Clearance 34 ml/min; Glucose 78 mg/dl (70-99); Magnesium 1.7 mg/dl (1.6-2.3); Potassium 4.1 mmol/L (3.5-5.1); Sodium 131 mmol/L (135-145)
[2023-11-14 05:51] LABS: Platelet Count 98 10^3/uL (130-400)
[2023-11-14 06:00] VITALS: BMI 26.7
[2023-11-14 07:39] VITALS: BP 175/76
[2023-11-14 07:40] LABS: Glucose - Point of Care 92 mg/dl (70-99)
[2023-11-14] MEDS: PACERONE 200 MG PO ×2 (08:25→20:55)
[2023-11-14] MEDS: LOPRESSOR 50 MG PO ×2 (08:25→20:56)
[2023-11-14] MEDS: NSS (PRESERVATIVE FREE) 10 ML IV ×2 (08:25→20:56)
[2023-11-14] MEDS: PROTONIX IV 40 MG IV ×2 (08:25→20:56)
[2023-11-14] MEDS: NEURONTIN 100 MG PO ×2 (08:25→20:55)
[2023-11-14] MEDS: VISBIOME 1 CAP PO (08:26)
[2023-11-14] MEDS: DELTASONE 2.5 MG PO (08:26)
[2023-11-14] MEDS: NOVOLOG FLEXPEN-LOW RESISTANCE SC ×3 (08:26→16:52)
[2023-11-14] MEDS: VITAMIN D3 (cholecalciferol) 25 MCG PO (08:26)
[2023-11-14 08:27] LABS: APTT > 200.00 Sec (23.4-35.0)
--- NOTE | 2023-11-14 10:27 | W.PN.HOSP.TC ---
Addendum entered and electronically signed by Jocelyn Tay MD 11/14/23 10:36:
continue heparin bridge
Original Note:
Today's Communication/Plan
-
NPO after MN for EGD tomorrow
Assessment / Plan
Assessment / Plan
Physical Exam
General: Well Developed, Well Nourished, No Apparent Distress, Comfortable and Conversant
HEENT: NormoCephalic, Moist mucous membranes, No Ptosis, Nose Appears Normal and Ears Appear Normal
Respiratory: Clear and Decreased Breath Sounds
Cardiac: S1/S2 and Regular Rhythm
GI: Soft, Non Tender and Non Distended
Musculoskeletal: No Clubbing, No Cyanosis and No Edema
Skin: Warm and Dry; No Rash or Jaundice
Neuro: Awake, Alert and Oriented
Psych: Calm
Ms. Tania Alexandre is a 83 yo woman with hx afib on Xarelto, RA on daily prednisone, HTN who presents to the ER with malaise x 1 week, nausea and decreased appetite.
IMPRESSION:
1. Wall thickening at the level of the gastric antrum as above. Somewhat limited assessment on single noncontrast acquisition, changes related to peristalsis are possible. However the wall thickening does appear eccentric and inflammatory process
is suspected. This could be further evaluated with follow-up endoscopy. No other signs of an acute intra-abdominal process.
2. Cardiomegaly and mild CHF with small bilateral effusions, left greater than right.
3. Coronary and aortic atherosclerosis.
#Continuous weakness/Malaise
-has symptoms of chills over the week; on chronic steroids; only 3-4 lb weight loss in 3-4 months (lack of diet)
-TSH and cortisol WNL. covid and flu negative. no fevers or elevated WBC; iron sat OK
-add on vitamin B12
-CT A/P results above -
-appreciate GI consult, plan for EGD tomorrow
-start IV Protonix
-no urinary symptoms
#Mild anemia, likely from chronic illnesses. No indication for transfusion at this time.
#Hyponatremia, mild
-now likely hypervolemic given CT findings
-stop IVF
-fluid restriction
-Na improved to 131 this AM
bilateral pleural effusions
-CT with findings of small bilateral effusions, left greater than right and e/o CHF
-TTE :Normal left ventricular size with normal wall thickness. No regional wall
motion abnormalities. Ejection fraction is 55-60%, moderate MR, moderate pulmonary hypertension, pulmonary artery
systolic pressure 53-56 mmHg. left pleural effusion (mild on CT)
patient comfortable laying flat
-patient was hospitalized in [place] with the flu with complication of heart failure s/p diuresis and had resultant kidney injury; now off lasix over past several months
CKD
-creatinine appears better than baseline (1.6)
Atrial Fibrillation
-hold Xarelto for possible procedure
-would bridge with heparin - patient reports CVA in past when off Xarelto x 1 week
-continue HEAD OF ACQUISITIONS Metoprolol
#Hypomagnesemia
-monitor and replete
DM
-hold meteformin
-aiss
Code: DNR (witnessed by daughter at bedside)
heparin gtt for DVT PPx
Total time spent on today's encounter was 50 minutes which included time spent in counseling the patient/family regarding diagnosis and treatment plan as listed above, goals of care, and symptom management. Case was discussed with nursing staff,
specialists, and care coordinators/case management. All labs and imaging personally reviewed by me. Remainder the time spent in detailed review of previous records, lab data, imaging, and other medical provider documentation.
Anticipated Discharge: > 48 hours
Subjective/Interval History
-
Date of Service: November 14, 2023
patient states she is feeling better today and ate some breakfast
no bleeding
no chest pain
Objective Data
-
Labs:
Laboratory Results
11/14/23 11/14/23 11/14/23
01:13 04:45 07:48
WBC 4.3 L
Hgb 9.0 L
Hct 26.7 L
Plt Count 98 L
APTT 111.7 H > 200.00 H*
Sodium 131 L
Potassium 4.1
Chloride 103
Carbon Dioxide 24
BUN 17
Creatinine 1.0
Glucose 78
Calcium 9.0
Vital Signs:
Vital Signs
Temp Pulse Resp BP Pulse Ox
97.6 F 61 16 175/76 97
11/14/23 07:39 11/14/23 08:25 11/14/23 07:39 11/14/23 08:25 11/14/23 08:00
I&O
11/13/23 11/14/23 11/15/23
06:59 06:59 06:59
Intake Total 3995 / 3995 625 / 625
Balance 3995 / 3995 625 / 625
Review of Systems
-
History Source: Patient
All other systems: Reviewed and negative
Physical Exam
-
General: No Apparent Distress
HEENT: PERRLA
Respiratory: Clear to Auscultation; Negative Wheezes
Cardiac: Regular Rhythm and S1/S2
GI: Soft and Nontender
Musculoskeletal: No Edema
Skin: Warm and Dry; Negative Rash
Neuro: AO x 3
Psych: Calm
Data Reviewed
-
Diagnostic Radiology: Report Reviewed by me
Labs: Labs Reviewed by me
[2023-11-14 11:05] VITALS: BP 148/63
[2023-11-14 12:00] LABS: Glucose - Point of Care 77 mg/dl (70-99)
[2023-11-14 15:06] VITALS: BP 161/67
[2023-11-14 16:50] LABS: Glucose - Point of Care 109 mg/dl (70-99)
[2023-11-14] MEDS: LIPITOR 10 MG PO (17:12)
[2023-11-14 17:22] LABS: APTT 44.5 Sec (23.4-35.0)
--- NOTE | 2023-11-14 17:33 | W.PN.GI.CBS2 ---
Addendum entered and electronically signed by Negra Bee DO 11/14/23 18:51:
Patient seen and examined independently of DAM TENDER ASSISTANT. I agree with her note with my additions below
Tania is an 83yoF with hx of afib/CVA on Xarelto, RA on prednisone, breast CA with a port and monthly infusions of a medication she doesn't know comes to the ER with nausea/weight loss and malaise found to have gastric antral wall thickening on CT
scan with no prior endoscopy who also has ongoing loose stools with mild weight loss of about 5 pounds over the past few months. Denies any NSAID use. Not on any PPI at home. Started on twice daily pantoprazole here yesterday.
On physical exam she is mildly tender in the epigastric area.
PLAN: Hold heparin drip at 3 AM for endoscopy in the morning to assess gastric thickening nausea epigastric discomfort and weight loss
Original Note:
Today's Communication / Plan
-
EGD tomorrow. NPO after MN. Continue PPI. Follow celiac panel.
Assessment / Plan
-
The pt is an 83 yo female with a PMH significant for HTN, Afib on Xarelto, CVA, DM2, rheumatoid arthritis on chronic prednisone, breast CA diagnosed in 2018 status post mastectomy, lymph node resection and chemotherapy, ?Chronic pleural effusion,
lower extremity edema, who presented to the ER with complaints of malaise, nausea, and weight loss. We are being asked to evaluate for abnormal CT findings showing gastric antral wall thickening. Other notable findings on admission include
hyponatremia along with LILA and mild anemia. She does have some ongoing loose stools depending on her meals, with infrequent solid stools. She has had acute onset of progressive weakness, nausea, and mild weight loss with no changes in medications
recently or other evident cause. She does have some mild epigastric tenderness on exam and continues to have nausea with decreased appetite. CT imaging did show gastric wall thickening at the antrum with some cardiac findings as well as noted
above. She denies NSAID use. She has no active signs of bleeding. Infectious workup unrevealing. She has never had an EGD. IV PPI was started. Her Xarelto was placed on hold.
11/14/23 Echo:
1. Normal left ventricular size with normal wall thickness. No regional wall
motion abnormalities. Ejection fraction is 55-60% global longitudinal strain
is reduced at -14.8%. Stage III diastolic dysfunction with restrictive
physiology.
2. Thickened mitral leaflets, moderate mitral regurgitation, and dilated left
atrium.
3. Aortic sclerosis with trace aortic regurgitation
4. Normal right heart with moderate pulmonary hypertension, pulmonary artery
systolic pressure 53-56 mmHg
5. Left pleural effusion
Problem list:
-weakness, fatigue, weight loss (3-4 lbs)
-nausea, epigastric tenderness
-loose stools
-abnormal CT showing antral wall thickening, small bilateral pleural effusions, cardiomegaly
-hyponatremia
-LILA, resolved
-normocytic anemia, more consistent with chronic anemia without iron deficiency
-thrombocytopenia
Other pertinent medical history:
-A-fib on Xarelto
-CVA
-Type 2 diabetes
-Rheumatoid arthritis on chronic prednisone
-History of breast cancer diagnosed in 2018 status postmastectomy, lymph node resection, and chemotherapy
-Hypertension
-Chronic lower extremity edema
-?chronic pleural effusion
Recommendations:
-Etiology of current symptoms unclear, possibly secondary to upper GI etiology such as gastritis versus peptic ulcer disease versus gastroparesis versus other. She is on chronic prednisone but denies use of NSAIDs.
---CT imaging showing gastric wall thickening with no other acute findings in the abdomen or pelvis (other cardiac findings as noted above).
-Plan for EGD tomorrow, timing to be determined by Dr. Bee, will need heparin gtt hold.
-Continue PPI IV BID
-Diet as tolerated, NPO after MN
-Follow celiac panel
-Stool culture pending but no diarrhea currently
-Echo as above with stable EF
-Sodium levels improving
-Anemia unclear, with no iron deficiency. Vitamin B12 level pending. Possible chronic anemia. Also with thrombocytopenia. Consider hematology evaluation pending EGD.
-Further plan pending above
Subjective
Subjective
Date of Service: November 14, 2023
The pt was seen and examined at the bedside. She denies any abdominal pain but continues with nausea. She is tolerating her diet. She is on IV heparin gtt. Her hgb is stable. She has mild thrombocytopenia which is stable. She has had no further
diarrhea. Celiac panel is pending.
Objective
Data Reviewed
Laboratory Data:
Laboratory Results
11/14/23 04:45
11/14/23 04:45
Laboratory Results
APTT 44.5 Sec (23.4-35.0) H 11/14/23 16:47
Magnesium 1.7 mg/dl (1.6-2.3) 11/14/23 04:45
Total Bilirubin 0.7 mg/dl (0.2-1.3) 11/13/23 05:16
AST 28 U/L (14-36) 11/13/23 05:16
ALT 14 U/L (0-35) 11/13/23 05:16
Alkaline Phosphatase 53 U/L (38-126) 11/13/23 05:16
Lipase 212 U/L (23-300) 11/11/23 18:20
Vital Signs and I&O:
Vital Signs
Temp Pulse Resp BP Pulse Ox
98.4 F 62 16 161/67 97
11/14/23 15:06 11/14/23 15:06 11/14/23 15:06 11/14/23 15:06 11/14/23 15:06
I&O
11/13/23 11/14/23 11/15/23
06:59 06:59 06:59
Intake Total 3995 / 3995 625 / 625 720 / 720
Balance 3995 / 3995 625 / 625 720 / 720
Physical Exam
Physical Exam
HEENT: Anicteric
Cardiology: S1 and S2 (RRR)
Pulmonary: Clear
GI: Soft, Non Distended, Non Tender and Normal Bowel Sounds
Extremities: No Edema
--- NOTE | 2023-11-14 18:00 | PTCARENOTE ---
1800 Pt arrived from [facility] [place] via w/c. Alert and oriented x 3. Pt denies discomfort. VS stable.Pulse ox 95% on room air. Heparin drip infusing, continue to monitor pt closely.
[2023-11-14 18:03] VITALS: BP 134/75
[2023-11-14 22:02] LABS: Glucose - Point of Care 111 mg/dl (70-99)
[2023-11-14 23:10] VITALS: BP 184/82
[2023-11-15] VITALS (12 sets, daily range): BP systolic 11–185; BP diastolic 52–88; PULSE 67; O2SAT 99
[2023-11-15] MEDS: APRESOLINE 5 MG IV (00:49)
[2023-11-15 00:50] LABS: APTT > 200 Sec (23.4-35.0)
[2023-11-15] MEDS: NSS (PRESERVATIVE FREE) 10 ML IV (07:50)
[2023-11-15] MEDS: PROTONIX IV 40 MG IV (07:52)
[2023-11-15] MEDS: ZOFRAN 4 MG IV ×2 (08:13→15:18)
[2023-11-15 08:46] LABS: Hematocrit 31.2 % (37.0-47.0); Hemoglobin 10.4 g/dL (12.0-16.0); Mean Corp Hgb Conc. 33.3 g/dL (33.0-37.0); Mean Corpuscular Hgb 27.7 pg (27.0-31.0); Mean Platelet Volume 11.9 fL (7.4-10.4); Platelet Count 99 10^3/uL (130-400); Red Blood Cell Count 3.76 10^6/uL (4.20-5.40); Red Cell Dist. Width 16.3 % (11.5-14.5); White Blood Cell Count 4.9 10^3/uL (4.8-10.8)
[2023-11-15 08:54] LABS: APTT 38.6 Sec (23.4-35.0)
[2023-11-15 09:23] LABS: Glucose - Point of Care 90 mg/dl (70-99)
--- NOTE | 2023-11-15 09:41 | CM ---
Addendum entered by Edna Breaux 11/15/23 15:32:
Patient seen bedside.
patient would like [facility].
Referral via TT to nurse Liaison.
Plan: home with VN (please verify [facility] accepted)
Original Note:
CM consulted re Poppy cost.
Per [facility], not reimbursed.
Xarelto 1 mg covered with cost of $47 per month.
[2023-11-15 09:50] LABS: Blood Urea Nitrogen 21 mg/dl (7-17); Calcium 9.7 mg/dl (8.4-10.2); Carbon Dioxide 23 mmol/L (22-30); Chloride 100 mmol/L (98-107); Estimated Creatinine Clearance 31 ml/min; Glucose 96 mg/dl (70-99); Potassium 3.8 mmol/L (3.5-5.1); Sodium 133 mmol/L (135-145); eGFR 49.86
[2023-11-15] MEDS: NOVOLOG FLEXPEN-LOW RESISTANCE SC ×2 (10:15→13:12)
[2023-11-15] MEDS: VISBIOME 1 CAP PO (10:16)
[2023-11-15] MEDS: NEURONTIN 100 MG PO ×2 (10:17→20:53)
[2023-11-15] MEDS: VITAMIN D3 (cholecalciferol) 25 MCG PO (10:17)
[2023-11-15] MEDS: LOPRESSOR 50 MG PO ×2 (10:17→20:53)
[2023-11-15] MEDS: DELTASONE 2.5 MG PO (10:17)
[2023-11-15] MEDS: PACERONE 200 MG PO ×2 (10:17→20:54)
--- NOTE | 2023-11-15 11:44 | W.PN.HOSP.TC ---
Today's Communication/Plan
-
hydralazine listed as allergy
PT/OT today
BID PPI
anticipate DC tomorrow
Assessment / Plan
Assessment / Plan
Physical Exam
General: Well Developed, Well Nourished, No Apparent Distress, Comfortable and Conversant
HEENT: NormoCephalic, Moist mucous membranes, No Ptosis, Nose Appears Normal and Ears Appear Normal
Respiratory: Clear and Decreased Breath Sounds
Cardiac: S1/S2 and Regular Rhythm
GI: Soft, Non Tender and Non Distended
Musculoskeletal: No Clubbing, No Cyanosis and No Edema
Skin: Warm and Dry; No Rash or Jaundice
Neuro: Awake, Alert and Oriented
Psych: Calm
Ms. Tania Alexandre is a 83 yo woman with hx afib on Xarelto, RA on daily prednisone, HTN who presents to the ER with malaise x 1 week, nausea and decreased appetite.
IMPRESSION:
1. Wall thickening at the level of the gastric antrum as above. Somewhat limited assessment on single noncontrast acquisition, changes related to peristalsis are possible. However the wall thickening does appear eccentric and inflammatory process
is suspected. This could be further evaluated with follow-up endoscopy. No other signs of an acute intra-abdominal process.
2. Cardiomegaly and mild CHF with small bilateral effusions, left greater than right.
3. Coronary and aortic atherosclerosis.
EGD
Impression: - Small hiatal hernia.
- Gastritis with shallow scattered ulcers. Biopsied.
- Normal examined duodenum. Biopsied.
Recommendation: - [facility].
- Advance diet as tolerated.
- Use a proton pump inhibitor PO BID for one month,
then once daily indefinitely.
- Await pathology results.
- Use sucralfate tablets 1 gram PO BID for 2 wks -
take apart from cardiac medications as it can bind
them and they may not be effective.
- Resume Xarelto (rivaroxaban) at prior dose tonight.
- Patient was not on a ppi at home.
- The findings and recommendations were discussed with
the patient.
- My office will call you in 1-2 weeks with the biopsy
results.
#Continuous weakness/Malaise
#PUD
-has symptoms of chills over the week; on chronic steroids; only 3-4 lb weight loss in 3-4 months (lack of diet)
-TSH and cortisol WNL. covid and flu negative. no fevers or elevated WBC; iron sat OK
-CT A/P results above -
-s/p EGD with findings of gastritis and PUD
-continue BID Protonix x 1 month then daily
#Mild anemia, likely from chronic illnesses. No indication for transfusion at this time.
#Hyponatremia, mild
-now likely hypervolemic given CT findings
-stop IVF
-fluid restriction
-Na improved
Adverse reaction to Hydralazine
-now listed as allergy
-improved this AM
-asking PT to see patient again this AM
bilateral pleural effusions
-CT with findings of small bilateral effusions, left greater than right and e/o CHF
-TTE :Normal left ventricular size with normal wall thickness. No regional wall
motion abnormalities. Ejection fraction is 55-60%, moderate MR, moderate pulmonary hypertension, pulmonary artery
systolic pressure 53-56 mmHg. left pleural effusion (mild on CT)
patient comfortable laying flat
-patient was hospitalized in [place] with the flu with complication of heart failure s/p diuresis and had resultant kidney injury; now off lasix over past several months
CKD
-creatinine appears better than baseline (1.6)
Atrial Fibrillation
-Xarelto held pre-procedure. Heparin gtt given hx CVA off Xarelto, elevated [id number]
-continue [employer] Metoprolol
-resume Xarelto this evening
#Hypomagnesemia
-monitor and replete
DM
-resume metformin on DC
-ISS
Code: DNR (witnessed by daughter at bedside)
heparin gtt for DVT PPx
Total time spent on today's encounter was 50 minutes which included time spent in counseling the patient/family regarding diagnosis and treatment plan as listed above, goals of care, and symptom management. Case was discussed with nursing staff,
specialists, and care coordinators/case management. All labs and imaging personally reviewed by me. Remainder the time spent in detailed review of previous records, lab data, imaging, and other medical provider documentation.
Anticipated Discharge: 24 - 48 hours
Subjective/Interval History
-
Date of Service: November 15, 2023
received hydralazine last night and following described whole body stiffness and headache
feeling better this morning but not 100%
headache resolved
no black or bloody stools
no chest pain
Objective Data
-
Labs:
Laboratory Results
11/14/23 11/15/23 11/15/23
23:59 08:13 10:37
WBC 4.9
Hgb 10.4 L
Hct 31.2 L
Plt Count 99 L
APTT > 200 H* 38.6 H Cancelled
Sodium 133 L
Potassium 3.8
Chloride 100
Carbon Dioxide 23
BUN 21 H
Creatinine 1.1 H
Glucose 96
Calcium 9.7
11/15/23
16:50
WBC
Hgb
Hct
Plt Count
APTT Pending
Sodium
Potassium
Chloride
Carbon Dioxide
BUN
Creatinine
Glucose
Calcium
Vital Signs:
Vital Signs
Temp Pulse Resp BP Pulse Ox
98.0 F 69 16 135/67 99
11/15/23 09:34 11/15/23 10:17 11/15/23 09:34 11/15/23 10:17 11/15/23 09:44
I&O
11/14/23 11/15/23 11/16/23
06:59 06:59 06:59
Intake Total 625 / 625 960 / 960
Balance 625 / 625 960 / 960
Review of Systems
-
History Source: Patient
All other systems: Reviewed and negative
Physical Exam
-
General: No Apparent Distress
HEENT: PERRLA
Respiratory: Clear to Auscultation; Negative Wheezes
Cardiac: Regular Rhythm and S1/S2
GI: Soft and Nontender
Musculoskeletal: No Edema
Skin: Warm and Dry; Negative Rash
Neuro: AO x 3
Psych: Calm
Data Reviewed
-
Diagnostic Radiology: Report Reviewed by me
Labs: Labs Reviewed by me
[2023-11-15 13:09] LABS: Glucose - Point of Care 141 mg/dl (70-99)
--- NOTE | 2023-11-15 14:01 | PN.CDI ---
CDI
- -
CDI:
Physician Documentation Request
Admit Date: 11/11/23 20:44
Dear Doctor Jasvir,
Please review the following and provide your response in the progress notes.
Clinical Indicators:
Pt admitted with weakness and malaise.
11/13 PN: 'bilateral pleural effusions
-CT with findings of small bilateral effusions, left greater than right and e/o CHF
-TTE :Normal left ventricular size with normal wall thickness. No regional wall
motion abnormalities. Ejection fraction is 55-60%, moderate MR, moderate pulmonary hypertension, pulmonary artery
systolic pressure 53-56 mmHg. left pleural effusion (mild on CT)
patient comfortable laying flat
-patient was hospitalized in [place] with the flu with complication of heart failure s/p diuresis and had resultant kidney injury; now off lasix over past several months'
Please provide further specificity regarding the most likely type of CHF you are evaluating, treating or monitoring.
Chronic diastolic Heart failure
Chronic systolic heart failure
Chronic combination systolic/diastolic heart failure
Other
Use of terms such as suspected, likely, concern for, or probable (associated with a specific diagnosis that is being evaluated, monitored, or treated as if it exists) are acceptable and can be coded in the inpatient setting, when documented at the
time of discharge.
Thank you,
Wendi Schofield RN, BSN
CDI Specialist
Available via [place] [facility]
Please use your independent medical judgment in providing your response.
[2023-11-15 16:09] LABS: tTG IgA Antibody 3.6 EU/ml (0-19); tTG IgG Antibody 4.3 EU/ml (0-19)
[2023-11-15 16:57] LABS: Glucose - Point of Care 157 mg/dl (70-99)
[2023-11-15] MEDS: NOVOLOG FLEXPEN-LOW RESISTANCE 1 UNITS SC (17:35)
[2023-11-15] MEDS: LIPITOR 10 MG PO (17:36)
[2023-11-15] MEDS: XARELTO 15 MG PO (17:59)
[2023-11-15] MEDS: CARAFATE 1 GRAM PO (20:53)
[2023-11-15] MEDS: PROTONIX 40 MG PO (20:54)
[2023-11-15 21:08] LABS: Glucose - Point of Care 131 mg/dl (70-99)
[2023-11-15 23:28] LABS: Endomysial IgA Antibody Titer <1:10 (<1:10)
[2023-11-16 00:33] LABS: Pancreatic Elastase, Fecal >800 ug/g (>=100)
[2023-11-16 07:30] VITALS: BP 167/81
[2023-11-16 08:42] LABS: Hematocrit 29.9 % (37.0-47.0); Hemoglobin 10.1 g/dL (12.0-16.0); Mean Corp Hgb Conc. 33.8 g/dL (33.0-37.0); Mean Corpuscular Hgb 28.1 pg (27.0-31.0); Mean Corpuscular Volume 83.3 fL (81.0-99.0); Mean Platelet Volume 12.1 fL (7.4-10.4); Platelet Count 110 10^3/uL (130-400); Red Blood Cell Count 3.59 10^6/uL (4.20-5.40); Red Cell Dist. Width 16.2 % (11.5-14.5); White Blood Cell Count 4.3 10^3/uL (4.8-10.8)
[2023-11-16 08:44] LABS: Glucose - Point of Care 106 mg/dl (70-99)
[2023-11-16] MEDS: NOVOLOG FLEXPEN-LOW RESISTANCE SC ×2 (08:51→12:06)
[2023-11-16 09:19] LABS: Blood Urea Nitrogen 20 mg/dl (7-17); Calcium 9.5 mg/dl (8.4-10.2); Carbon Dioxide 25 mmol/L (22-30); Chloride 99 mmol/L (98-107); Estimated Creatinine Clearance 28 ml/min; Glucose 91 mg/dl (70-99); Potassium 3.9 mmol/L (3.5-5.1); Sodium 130 mmol/L (135-145); eGFR 44.91
[2023-11-16] MEDS: PROTONIX 40 MG PO (09:23)
[2023-11-16] MEDS: PACERONE 200 MG PO (09:24)
[2023-11-16] MEDS: VITAMIN D3 (cholecalciferol) 25 MCG PO (09:26)
[2023-11-16] MEDS: LOPRESSOR 50 MG PO (09:26)
[2023-11-16] MEDS: CARAFATE 1 GRAM PO (09:26)
[2023-11-16] MEDS: NEURONTIN 100 MG PO (09:26)
[2023-11-16] MEDS: DELTASONE 2.5 MG PO (09:26)
[2023-11-16] MEDS: VISBIOME 1 CAP PO (09:27)
--- NOTE | 2023-11-16 10:03 | VNURNOTE ---
Home health liaison met with patient 11/15/23 to discuss VN services, visit scheduling/frequency, homebound status and pet policy. Patient understands home visits will be 1-2 times a week to assess and teach medical management. Patient declining
homecare services and states she is comfortable going home and daughter will be available to assist.
--- NOTE | 2023-11-16 11:14 | W.PN.GI.CBS2 ---
Today's Communication / Plan
-
s/p EGD with gastritis, swallow ulcers
bx pending
cont PPI BID x 1 month then daily
cont Carafate BID x 2 weeks take apart from cardiac meds
Xarelto restarted
cont diet as tolerated
celiac bx neg
stool cx neg
hbg stable 10.1 no iron deficiency, b12 low normal [address] Tay for treatment
reviewed with Dr. Tay for discharge today
Assessment / Plan
-
The pt is an 83 yo female with a PMH significant for HTN, Afib on Xarelto, CVA, DM2, rheumatoid arthritis on chronic prednisone, breast CA diagnosed in 2018 status post mastectomy, lymph node resection and chemotherapy, ?Chronic pleural effusion,
lower extremity edema, who presented to the ER with complaints of malaise, nausea, and weight loss. We are being asked to evaluate for abnormal CT findings showing gastric antral wall thickening. Other notable findings on admission include
hyponatremia along with LILA and mild anemia. She does have some ongoing loose stools depending on her meals, with infrequent solid stools. She has had acute onset of progressive weakness, nausea, and mild weight loss with no changes in medications
recently or other evident cause and mild epigastric pain on admission.
11/15/23 EGD - Small hiatal hernia.
- Gastritis with shallow scattered ulcers. Biopsied.
- Normal examined duodenum. Biopsied.
bx pending
11/14/23 Echo:
1. Normal left ventricular size with normal wall thickness. No regional wall
motion abnormalities. Ejection fraction is 55-60% global longitudinal strain
is reduced at -14.8%. Stage III diastolic dysfunction with restrictive
physiology.
2. Thickened mitral leaflets, moderate mitral regurgitation, and dilated left
atrium.
3. Aortic sclerosis with trace aortic regurgitation
4. Normal right heart with moderate pulmonary hypertension, pulmonary artery
systolic pressure 53-56 mmHg
5. Left pleural effusion
Problem list:
-weakness, fatigue, weight loss (3-4 lbs)
-nausea, epigastric tenderness
-loose stools
-anemia with low normal B12
-abnormal CT showing antral wall thickening, small bilateral pleural effusions, cardiomegaly
-hyponatremia
-LILA, resolved
-normocytic anemia, more consistent with chronic anemia without iron deficiency
-thrombocytopenia
Other pertinent medical history:
-A-fib on Xarelto
-CVA
-Type 2 diabetes
-Rheumatoid arthritis on chronic prednisone
-History of breast cancer diagnosed in 2018 status postmastectomy, lymph node resection, and chemotherapy
-Hypertension
-Chronic lower extremity edema
-?chronic pleural effusion
Recommendations:
s/p EGD with gastritis, swallow ulcers
bx pending
cont PPI BID x 1 month then daily
cont carafate BID x 2 weeks take apart from cardiac meds
Xarelto restarted
cont diet as tolerated
celiac bx neg
stool cx neg
hbg stable 10.1 no iron deficiency, b12 low normal [address] Tay for treatment
reviewed with Dr. Tay
e
Subjective
Subjective
Date of Service: November 16, 2023
11/14 brown stool, on regular diet feeling better some chronic nausea
Objective
Data Reviewed
Laboratory Data:
Laboratory Results
11/16/23 08:26
11/16/23 08:26
Laboratory Results
APTT 114.0 Sec (23.4-35.0) H 11/15/23 16:55
Magnesium 1.7 mg/dl (1.6-2.3) 11/14/23 04:45
Total Bilirubin 0.7 mg/dl (0.2-1.3) 11/13/23 05:16
AST 28 U/L (14-36) 11/13/23 05:16
ALT 14 U/L (0-35) 11/13/23 05:16
Alkaline Phosphatase 53 U/L (38-126) 11/13/23 05:16
Lipase 212 U/L (23-300) 11/11/23 18:20
Vital Signs and I&O:
Vital Signs
Temp Pulse Resp BP Pulse Ox
97.5 F 71 20 167/81 99
11/16/23 07:30 11/16/23 07:30 11/16/23 07:30 11/16/23 09:24 11/16/23 07:30
I&O
11/15/23 11/16/23 11/17/23
06:59 06:59 06:59
Intake Total 960 / 960 1440 / 1440
Balance 960 / 960 1440 / 1440
Physical Exam
Physical Exam
HEENT: Anicteric and Moist mucous membranes
Cardiology: Normal Sinus Rhythm
Pulmonary: Clear
GI: Soft, Non Distended and Non Tender
Extremities: No Edema
Neuro: Non Focal
--- NOTE | 2023-11-16 11:52 | W.PN.HOSP.TC ---
Addendum entered and electronically signed by Jocelyn Tay MD 11/17/23 07:26:
chronic diastolic heart failure
not on diuretics at home
Original Note:
Today's Communication/Plan
-
OK for DC today
Assessment / Plan
Assessment / Plan
Physical Exam
General: Well Developed, Well Nourished, No Apparent Distress, Comfortable and Conversant
HEENT: NormoCephalic, Moist mucous membranes, No Ptosis, Nose Appears Normal and Ears Appear Normal
Respiratory: Clear and Decreased Breath Sounds
Cardiac: S1/S2 and Regular Rhythm
GI: Soft, Non Tender and Non Distended
Musculoskeletal: No Clubbing, No Cyanosis and No Edema
Skin: Warm and Dry; No Rash or Jaundice
Neuro: Awake, Alert and Oriented
Psych: Calm
Ms. Tania Alexandre is a 83 yo woman with hx afib on Xarelto, RA on daily prednisone, HTN who presents to the ER with malaise x 1 week, nausea and decreased appetite.
IMPRESSION:
1. Wall thickening at the level of the gastric antrum as above. Somewhat limited assessment on single noncontrast acquisition, changes related to peristalsis are possible. However the wall thickening does appear eccentric and inflammatory process
is suspected. This could be further evaluated with follow-up endoscopy. No other signs of an acute intra-abdominal process.
2. Cardiomegaly and mild CHF with small bilateral effusions, left greater than right.
3. Coronary and aortic atherosclerosis.
EGD
Impression: - Small hiatal hernia.
- Gastritis with shallow scattered ulcers. Biopsied.
- Normal examined duodenum. Biopsied.
Recommendation: - [facility].
- Advance diet as tolerated.
- Use a proton pump inhibitor PO BID for one month,
then once daily indefinitely.
- Await pathology results.
- Use sucralfate tablets 1 gram PO BID for 2 wks -
take apart from cardiac medications as it can bind
them and they may not be effective.
- Resume Xarelto (rivaroxaban) at prior dose tonight.
- Patient was not on a ppi at home.
- The findings and recommendations were discussed with
the patient.
- My office will call you in 1-2 weeks with the biopsy
results.
#Continuous weakness/Malaise
#PUD
-has symptoms of chills over the week; on chronic steroids; only 3-4 lb weight loss in 3-4 months (lack of diet)
-TSH and cortisol WNL. covid and flu negative. no fevers or elevated WBC; iron sat OK
-CT A/P results above -
-s/p EGD with findings of gastritis and PUD
-continue BID Protonix x 1 month then daily
-sucralfate x 2 weeks
#Mild anemia, likely from chronic illnesses. No indication for transfusion at this time.
#Hyponatremia, mild
-now likely hypervolemic given CT findings
-stop IVF
-fluid restriction
-Na improved
Adverse reaction to Hydralazine
-now listed as allergy
-improved this AM
-asking PT to see patient again this AM
bilateral pleural effusions
-CT with findings of small bilateral effusions, left greater than right and e/o CHF
-TTE :Normal left ventricular size with normal wall thickness. No regional wall
motion abnormalities. Ejection fraction is 55-60%, moderate MR, moderate pulmonary hypertension, pulmonary artery
systolic pressure 53-56 mmHg. left pleural effusion (mild on CT)
patient comfortable laying flat
-patient was hospitalized in [place] with the flu with complication of heart failure s/p diuresis and had resultant kidney injury; now off lasix over past several months
CKD
-creatinine appears better than baseline (1.6)
Atrial Fibrillation
-Xarelto held pre-procedure. Heparin gtt given hx CVA off Xarelto, elevated [id number]
-continue [employer] Metoprolol
-PO[employer] Xarelto resumed
#Hypomagnesemia
-monitor and replete
DM
-resume metformin on DC
-ISS
Code: DNR (witnessed by daughter at bedside)
XArelto for DVT PPx
Total time spent on today's encounter was 50 minutes which included time spent in counseling the patient/family regarding diagnosis and treatment plan as listed above, goals of care, and symptom management. Case was discussed with nursing staff,
specialists, and care coordinators/case management. All labs and imaging personally reviewed by me. Remainder the time spent in detailed review of previous records, lab data, imaging, and other medical provider documentation.
Anticipated Discharge: Today
Subjective/Interval History
-
Date of Service: November 16, 2023
feeling better
wants to go home
Objective Data
-
Labs:
Laboratory Results
11/16/23
08:26
WBC 4.3 L
Hgb 10.1 L
Hct 29.9 L
Plt Count 110 L
Sodium 130 L
Potassium 3.9
Chloride 99
Carbon Dioxide 25
BUN 20 H
Creatinine 1.2 H
Glucose 91
Calcium 9.5
Vital Signs:
Vital Signs
Temp Pulse Resp BP Pulse Ox
97.5 F 71 20 167/81 99
11/16/23 07:30 11/16/23 07:30 11/16/23 07:30 11/16/23 09:24 11/16/23 07:30
I&O
11/15/23 11/16/23 11/17/23
06:59 06:59 06:59
Intake Total 960 / 960 1440 / 1440
Balance 960 / 960 1440 / 1440
Review of Systems
-
History Source: Patient
All other systems: Reviewed and negative
Physical Exam
-
General: No Apparent Distress
HEENT: PERRLA
Respiratory: Clear to Auscultation; Negative Wheezes
Cardiac: Regular Rhythm and S1/S2
GI: Soft and Nontender
Musculoskeletal: No Edema
Skin: Warm and Dry; Negative Rash
Neuro: AO x 3
Psych: Calm
Data Reviewed
-
Diagnostic Radiology: Report Reviewed by me
Labs: Labs Reviewed by me
--- NOTE | 2023-11-16 12:00 | W.DS.TRANS ---
DC Summary - [employer]
-
Discharge Instructions:
Sleep Apnea Risk Intermediate
Discharge Diagnosis/Procedures peptic ulcer disease
Diet Regular
Activity As tolerated
Driving Restrictions As prior to admission
Bathing Restrictions None
Other Services VN,PT,OT
Instructions:
Stand-Alone Forms:
Changes to Home Medications: Yes
Discharge Medications:
DC Medications w/original date entered in [employer]
amiodarone 200 mg tablet 100 mg PO 1XD AFIB 03/20/23
atorvastatin 10 mg tablet 10 mg PO QPM High Cholesterol 03/20/23
gabapentin 100 mg capsule 100 mg PO BID Pain 03/20/23
metformin 500 mg tablet 500 mg PO QPM Diabetes 03/20/23
metoprolol tartrate 100 mg tablet 50 mg PO BID Blood Pressure 03/20/23
multivitamin 1 tab PO DAILY Supplement 03/20/23
prednisone 2.5 mg tablet 2.5 mg PO DAILY INFLAMMATION 03/20/23
rivaroxaban 15 mg tablet (Xarelto) 15 mg PO QPM Blood Clot Prevention/Tx 03/20/23
lisinopril 2.5 mg tablet 2.5 mg PO DAILY Blood Pressure 11/11/23
meclizine 50 mg tablet 50 mg PO DAILY PRN dizziness 11/11/23
ondansetron HCl 8 mg tablet 8 mg PO Q8H PRN nausea 11/11/23
pantoprazole 40 mg tablet,delayed release 40 mg PO BID #60 tabs 11/16/23
sucralfate 1 gram tablet 1 g PO BID #12 tabs 11/16/23
Home Medication Changes
addition of carafate and Protonix
Pending Results: Yes
Additional Pending Results:
EGD biopsy results
[2023-11-16 12:01] LABS: Glucose - Point of Care 122 mg/dl (70-99)
--- NOTE | 2023-11-16 12:06 | CM ---
Addendum entered by Valorie Reese 11/16/23 12:22:
IMM benefit explained; form signed [id number]
Addendum entered by Valorie Reese 11/16/23 12:12:
Discharge to Home today with [facility]
Per patient's Daughter, her will provide ride home
Original Note:
Met with patient at bedside to discuss discharge planning; also spoke with her daughter, Alanna, via phone
Both are agreeable to home health [facility] services w/ [facility]
Sent [place] Text to [facility] liasion with update on referral
--- NOTE | 2023-11-16 12:11 | VNURNOTE ---
Home health liaison spoke to daughter Alanna on phone. Alanna is requesting patient has nursing and OT at home. daughter made aware visiting nurse will call over weekend to set up visit and visits will be 1-2 days a week. Daughter is agreeable.
Referral placed in [facility]
--- NOTE | 2023-11-16 12:34 | VATNOTE ---
Pt's SQ port flushed with 500 units/5 mL heparin prior to deaccessing port.
--- NOTE | 2023-11-16 14:12 | W.DCSUMMARY ---
Discharge Summary
Discharge Data
Date of Admission: 11/11/23
Date of Discharge: 11/16/23
-
Pending Results: Yes
Hospital Course
Discharging Physician : Dr. Jocelyn Tay
Disposition : Home with Home Health
Principal Discharge diagnosis : peptic ulcer disease
Hospital Course :
Ms. Tania Alexandre is a 83 yo woman with hx afib on Xarelto, RA on daily prednisone, HTN who presents to the ER with malaise x 1 week, nausea and decreased appetite. Work-up included CT A/P which showed wall thickening at level of gastric antrum
concerning for inflammatory process. At this point GI was consulted for EGD. After Xarelto washout she underwent an EGD on 11/14 which showed gastritis with shallow scatter ulcers. Etiology likely 2/2 chronic prednisone and Xarelto use. Patient's
symptoms improved with initiation of Protonix. She is discharged on Protonix 40 BID x 1 month then daily. She is also told to take Sucralfate tabs twice a day x 2 weeks. Pathology pending at time of DC.
While Xarelto was held, she was bridged with IV Heparin given high CHADS2-vasc score and hx stroke off Xarelto.
Patient's BP was treated overnight with IV Hydralazine and she developed a reaction including diffuse body stiffness and headache. Hydralazine is now listed as an allergy. These symptoms resolved prior to discharge.
Home Health ordered for patient.
Time spent on discharge was 35 minutes.
Important imaging findings :
Procedure findings :
EGD 11/15/23
Impression: - Small hiatal hernia.
- Gastritis with shallow scattered ulcers. Biopsied.
- Normal examined duodenum. Biopsied.
Recommendation: - [facility].
- Advance diet as tolerated.
- Use a proton pump inhibitor PO BID for one month,
then once daily indefinitely.
- Await pathology results.
- Use sucralfate tablets 1 gram PO BID for 2 wks -
take apart from cardiac medications as it can bind
them and they may not be effective.
- Resume Xarelto (rivaroxaban) at prior dose tonight.
- Patient was not on a ppi at home.
- The findings and recommendations were discussed with
the patient.
- My office will call you in 1-2 weeks with the biopsy
results.
Discharge Plan
-
Patient Disposition: Home with Home Care
Discharge Diagnosis/Procedures: peptic ulcer disease
Condition: Good
Diet: Regular
Activity: As tolerated
Driving Restrictions: As prior to admission
Bathing Restrictions: None
Other Services: VN, PT and OT
Referrals:
UNKNOWN - PT DOES,NOT KNOW [Family Provider] - in less than 1 week
Additional Discharge Medication Instructions: Take Protonix twice a day x 1 month then daily indefinitely while on Xarelto and Prednisone
Take Carafate twice a day x 2 weeks. Ensure there is at least 2 hours separation between taking Carafate and other medications (Carafate can prevent absorption).
Your vitamin B12 levels are low and I have ordered repletion
Prescriptions:
New
sucralfate 1 gram Tablet
1 g PO BID Qty: 12 0RF
pantoprazole 40 mg Tablet,Delayed Release (Dr/Ec)
40 mg PO BID Qty: 60 0RF
cyanocobalamin (vitamin B-12) 1,000 mcg Tablet
1,000 mcg PO DAILY Qty: 30 0RF
Continued
multivitamin Tablet
1 tab PO DAILY
metformin 500 mg Tablet
500 mg PO QPM
atorvastatin 10 mg Tablet
10 mg PO QPM
metoprolol tartrate 100 mg Tablet
50 mg PO BID
amiodarone 200 mg Tablet
100 mg PO 1XD
prednisone 2.5 mg Tablet
2.5 mg PO DAILY
gabapentin 100 mg Capsule
100 mg PO BID
Xarelto 15 mg Tablet
15 mg PO QPM
meclizine 50 mg Tablet
50 mg PO DAILY PRN (Reason: dizziness)
ondansetron HCl 8 mg Tablet
8 mg PO Q8H PRN (Reason: nausea)
lisinopril 2.5 mg Tablet
2.5 mg PO DAILY
Discharge Orders:
Discharge Patient (As Directed); Ordered 11/16/23
Ordered By: Jocelyn Tay
Discharge Date and Time
Discharge Date/Time: 11/16/23 12:48
Print Language: WELSH
== END 2023-11-16 12:48 | disposition home health service (06) | DRG 384 ==
LOC: 4 WEST ACU 20:44
PROVIDERS: Emergency Medicine; Internal Medicine; Nurse Practitioner Family; Physician Assistant; ADMITTING PHYSICIAN Internal Medicine; ATTENDING PHYSICIAN Student in an Organized Health Care Education/Training Program; CONSULT PHYSICIAN Internal Medicine Gastroenterology; EMERGENCY PHYSICIAN Emergency Medicine
PROC: 0DB68ZX Excision of Stomach, Via Natural or Artificial Opening Endoscopic, Diagnostic (ICD-10-PCS; 2023-11-15)
DX: K25.9 Gastric ulcer, unspecified as acute or chronic, without hemorrhage or perforation (principal); I48.19 Other persistent atrial fibrillation; F33.1 Major depressive disorder, recurrent, moderate; E87.1 Hypo-osmolality and hyponatremia; N17.9 Acute kidney failure, unspecified; I50.32 Chronic diastolic (congestive) heart failure; I13.0 Hypertensive heart and chronic kidney disease with heart failure and stage 1 through stage 4 chronic kidney disease, or unspecified chronic kidney disease; M06.9 Rheumatoid arthritis, unspecified; F41.1 Generalized anxiety disorder; E78.2 Mixed hyperlipidemia; K29.70 Gastritis, unspecified, without bleeding; K44.9 Diaphragmatic hernia without obstruction or gangrene; D63.8 Anemia in other chronic diseases classified elsewhere; R51.9 Headache, unspecified; T46.5X5A Adverse effect of other antihypertensive drugs, initial encounter; T38.0X5A Adverse effect of glucocorticoids and synthetic analogues, initial encounter; T45.515A Adverse effect of anticoagulants, initial encounter; E86.1 Hypovolemia; N18.9 Chronic kidney disease, unspecified; E11.22 Type 2 diabetes mellitus with diabetic chronic kidney disease; Z66 Do not resuscitate; E83.42 Hypomagnesemia; K52.9 Noninfective gastroenteritis and colitis, unspecified; D69.6 Thrombocytopenia, unspecified; Z11.52 Encounter for screening for COVID-19; Z85.3 Personal history of malignant neoplasm of breast; Z86.73 Personal history of transient ischemic attack (TIA), and cerebral infarction without residual deficits; Z79.01 Long term (current) use of anticoagulants; Z79.52 Long term (current) use of systemic steroids
CPT/HCPCS: 88305; 71046; 71250; 74176; 80048; 80053; 81003; 82533; 82607; 82653; 82728; 82784; 82962; 83516; 83540; 83550; 83690; 83735; 84443; 84484; 85025; 85027; 85730; 86231; 87045; 87046; 87427; 87502; 87811; 88342; 89055; 93005; 93306; 96361; 96365; 96375; 97161; 97166; 97530; 97535; 99285

== ENCOUNTER → 2023-11-22 09:29 | Outpatient (REF) | payer MEDICARE, SELFPAY ==
[2023-11-22 09:49] LABS: % Basophils 0.4 % (0-2); % Eosinophils 1.7 % (0-6); % Immature Granulocytes 0.4 % (0-0.5); % Lymphocytes 40.5 % (20.5-51.1); % Monocytes 12.3 % (1.7-9.3); % Neutrophils 44.7 % (42.2-75.2); Absolute Eosinophils 0.1 10^3/uL (0-0.7); Absolute Lymphocytes 1.9 10^3/uL (1.2-3.4); Absolute Monocytes 0.6 10^3/uL (0.1-0.6); Absolute Neutrophils 2.1 10^3/uL (1.4-6.5); Hematocrit 33.2 % (37.0-47.0); Hemoglobin 10.6 g/dL (12.0-16.0); Mean Corp Hgb Conc. 31.9 g/dL (33.0-37.0); Mean Corpuscular Hgb 27.7 pg (27.0-31.0); Mean Corpuscular Volume 86.7 fL (81.0-99.0); Mean Platelet Volume 11.6 fL (7.4-10.4); Platelet Count 147 10^3/uL (130-400); Red Blood Cell Count 3.83 10^6/uL (4.20-5.40); Red Cell Dist. Width 16.9 % (11.5-14.5); White Blood Cell Count 4.6 10^3/uL (4.8-10.8)
[2023-11-22 10:59] LABS: ALT (SGPT) 18 U/L (0-35); AST (SGOT) 30 U/L (14-36); Albumin 3.8 g/dl (3.5-5.0); Alkaline Phosphatase 57 U/L (38-126); Blood Urea Nitrogen 33 mg/dl (7-17); Calcium 9.7 mg/dl (8.4-10.2); Carbon Dioxide 23 mmol/L (22-30); Chloride 101 mmol/L (98-107); Glucose 109 mg/dl (70-99); Iron 123 ug/dl (37-170); Potassium 4.1 mmol/L (3.5-5.1); Sodium 134 mmol/L (135-145); Total Bilirubin 1.1 mg/dl (0.2-1.3); Total Protein 6.4 g/dl (6.3-8.2); eGFR 37.33
[2023-11-22 11:08] LABS: Percent Saturation 51 % (20-50); Total Iron Binding Capacity 240 ug/dl (265-497)
== END ==
LOC: OIDL 09:29
PROVIDERS: ATTENDING PHYSICIAN Internal Medicine Hematology & Oncology; FAMILY PHYSICIAN Physician Assistant
DX: C50.212 Malignant neoplasm of upper-inner quadrant of left female breast (principal)
CPT/HCPCS: 36415; 80053; 82728; 83540; 83550; 85025

== ENCOUNTER 2023-12-25 22:53 | Inpatient (IN) | payer MEDICARE, SELFPAY ==
[2023-12-25 18:13] VITALS: BP 141/81
--- NOTE | 2023-12-25 19:02 | EDRN ---
Patient has a port and wants to have labs drawn from it.
--- NOTE | 2023-12-25 20:39 | ED.GENMED ---
History of Present Illness
General
Chief Complaint: Weakness
Source: patient
Exam Limitations: none
Time Seen by Provider: 12/25/23 20:29
History of Present Illness
History of Present Illness:
See MDM
Past History
Past History
ED Past Medical History: Negative HTN, Hypercholesterolemia or IDDM
ED Past Surgical History: Orthopedic; Negative Appendectomy or Brain
Social History
Tobacco: Non-smoker
Alcohol: Occasional
Drug: None
Personal:
Living: with family
Employment: Retired
Family History
Family History: Hypertension
Phy Exam
Physical Exam
Physical Exam:
See MDM
Course
Orders/Labs/Results
Orders:
Orders
12/25/23 18:20
EKG [Electrocardiogram (*1)] Urgent
Reason for Study: Fatigue / Weakness
EKG- Treatment ONCE
12/25/23 20:40
0.9% Sodium Chloride 1000 ml [Nss] 1,000 ml IV BOLUS
Ondansetron Injectable [Zofran] 4 mg IV NOW STA
12/25/23 20:47
Type+Screen Urgent
CMP [Comprehensive Metabolic Panel] Urgent
Complete Blood Count/With Diff Urgent
Lipase Urgent
Comment: ADD ON
Urinalysis Reflex To Culture Urgent
12/25/23 21:39
METFORMIN HCl [Glucophage] 500 mg PO NOW STA
Metoprolol [Lopressor] 50 mg PO NOW STA
Pantoprazole [Protonix] 40 mg PO NOW STA
Sucralfate [Carafate] 1 gram PO NOW STA
12/25/23 21:45
Rivaroxaban [Xarelto] 15 mg PO QPM
Abnormal Lab Results
12/25/23
20:47
RBC 3.53 L 10^6/uL
(4.20-5.40)
Hgb 9.8 L g/dL
(12.0-16.0)
Hct 28.3 L %
(37.0-47.0)
MCV 80.2 L fL
(81.0-99.0)
RDW 15.2 H %
(11.5-14.5)
MPV 11.6 H fL
(7.4-10.4)
Absolute Lymphs (auto) 1.0 L 10^3/uL
(1.2-3.4)
Absolute Monos (auto) 0.7 H 10^3/uL
(0.1-0.6)
Lymphocytes % 18.5 L %
(20.5-51.1)
Monocytes % 13.6 H %
(1.7-9.3)
Sodium 118 L* mmol/L
(135-145)
Chloride 88 L mmol/L
(98-107)
Carbon Dioxide 21 L mmol/L
(22-30)
BUN 22 H mg/dl
(7-17)
Glucose 125 H mg/dl
(70-99)
Total Protein 5.7 L g/dl
(6.3-8.2)
Albumin 3.4 L g/dl
(3.5-5.0)
12/25/23 20:47
12/25/23 20:47
Vital Signs
Initial and Last Documented VS:
Initial Vital Signs
Temp Pulse Resp BP Pulse Ox
97.8 F 65 18 141/81 98
12/25/23 18:13 12/25/23 18:13 12/25/23 18:13 12/25/23 18:13 12/25/23 18:13
Last Documented Vital Signs
Temp Pulse Resp BP Pulse Ox
97.8 F 62 17 141/81 98
12/25/23 18:13 12/25/23 20:23 12/25/23 20:23 12/25/23 18:13 12/25/23 20:23
MDM/Problems Addressed
Differential Diagnosis Includes:
HPI and MDM Narrative:
83-year-old female presenting with generalized weakness and fatigue. She is not eating and drinking. This is very similar presentation to a few weeks ago where she was found to be dehydrated and had an endoscopy showing gastric ulcers. She was
placed on Protonix and Xarelto was eventually restarted. She does not know the color of her stools but states they do smell worse than normal. She denies abdominal pain but complains of nausea.
Given her recent history of gastric ulcers, will obtain rectal exam. She is mildly dry. Will give IV fluid
Physical exam
General: Well appearing and non-toxic
HEENT: protecting airway. Mildly dry mucous membranes
Neck: appears supple
CV: No evidence of cyanosis
Resp: No accessory muscle use
Abd: Non-distended and nontender
Rectal: Performed with nurse servicing manager Flor at bedside. Brown stool guaiac negative
Extremities: No deformities
Neuro: alert
Psych: Normal affect
Skin: Pale
Problems Addressed including Acute and Chronic Conditions affecting care:
1. Generalized weakness
Acuity: acute
Prognosis: stable
Details: Likely in setting of poor p.o. intake. Will give IV fluids and obtain basic blood work
2. Hyponatremia
Acuity: acute
Prognosis: unstable
Details: Sodium found to be 118. She is clinically dry. Will continue IV fluids and admit
Updates
Differential Diagnosis (but not limited to): Dehydration, upper GI bleeding, gastritis, symptomatic anemia
Testing considered: CT abdomen/pelvis but abdomen soft and nontender
Drug therapy (if applicable): OTC meds, please see d/c instruction regarding Rx drugs
Amount and/or Complexity of Data Reviewed
Clinical info obtained from: Patient
External data reviewed: N/A
Labs I independently reviewed (but not limited to): Sodium 118
Radiology: N/A
Pulse Ox: not hypoxic
EKG independently reviewed: N/A
Human Resources Team Member: Sinus rhythm
Critical Care: N/A
Risk of Complication:
Social Determinants of health: Good social support
Discussed with other providers: Hospitalist
Escalation of Care includes Admit/Obs: given the low sodium and generalized weakness, will continue IV fluids and admit
Occasional wrong word or 'sound a like' substitutions may have occurred due to the inherent limitations of voice recognition software. Read the chart carefully and recognize, using context, where substitutions have occurred.
*Critical Care Note
Total Time (30-74mins, 75-104mins- exclusive of procedures): Not Applicable
ED Attending Note
-
Portions of this chart may have been created with voice recognition software.� Occasional wrong word or��sound alike� substitutions may have occurred due to the inherent limitations of voice recognition software.
Discharge Plan
Departure
Patient Disposition: Admit
Date of Disposition: 12/25/23
Time of Disposition: 21:43
Admit to: IMU
Presentation/result/management discussed w/ accepting MD/DO: Hospitalist
Discharge Problem:
Acute hyponatremia
Prescriptions:
No Action
multivitamin Tablet
1 tab PO DAILY
metformin 500 mg Tablet
500 mg PO QPM
atorvastatin 10 mg Tablet
10 mg PO QPM
metoprolol tartrate 100 mg Tablet
50 mg PO BID
amiodarone 200 mg Tablet
100 mg PO 1XD
prednisone 2.5 mg Tablet
2.5 mg PO DAILY
gabapentin 100 mg Capsule
100 mg PO BID
Xarelto 15 mg Tablet
15 mg PO QPM
meclizine 50 mg Tablet
50 mg PO DAILY PRN (Reason: dizziness)
ondansetron HCl 8 mg Tablet
8 mg PO Q8H PRN (Reason: nausea)
lisinopril 2.5 mg Tablet
2.5 mg PO DAILY
sucralfate 1 gram Tablet
1 g PO BID Qty: 12 0RF
pantoprazole 40 mg Tablet,Delayed Release (Dr/Ec)
40 mg PO BID Qty: 60 0RF
cyanocobalamin (vitamin B-12) 1,000 mcg Tablet
1,000 mcg PO DAILY Qty: 30 0RF
Referrals:
Dada King DO [Family Provider] -
Interventions
Interventions:
*Risk Screen - Suicide Last Done: 12/25/23 20:15
*General Assessment Last Done: 12/25/23 20:24
*Neglect/Abuse Screening Last Done: 12/25/23 20:15
*ED COVID-19 Vaccine History Last Done: 12/25/23 18:13
ED- Cardiac Assessment Last Done: 12/25/23 20:22
ED- Neurological Assessment Last Done: 12/25/23 20:22
ED- Pulmonary Assessment Last Done: 12/25/23 20:22
Discharge Date and Time
Print Language: GREENLANDIC
[2023-12-25] MEDS: ZOFRAN 4 MG IV (20:50)
[2023-12-25] MEDS: NSS 1000 IV (20:50)
[2023-12-25 20:55] LABS: % Basophils 0.8 % (0-2); % Eosinophils 0.2 % (0-6); % Immature Granulocytes 0.4 % (0-0.5); % Lymphocytes 18.5 % (20.5-51.1); % Monocytes 13.6 % (1.7-9.3); % Neutrophils 66.5 % (42.2-75.2); Absolute Monocytes 0.7 10^3/uL (0.1-0.6); Absolute Neutrophils 3.4 10^3/uL (1.4-6.5); Hematocrit 28.3 % (37.0-47.0); Hemoglobin 9.8 g/dL (12.0-16.0); Mean Corp Hgb Conc. 34.6 g/dL (33.0-37.0); Mean Corpuscular Hgb 27.8 pg (27.0-31.0); Mean Corpuscular Volume 80.2 fL (81.0-99.0); Mean Platelet Volume 11.6 fL (7.4-10.4); Nucleated Red Blood Cells % 0 %; Platelet Count 138 10^3/uL (130-400); Red Blood Cell Count 3.53 10^6/uL (4.20-5.40); Red Cell Dist. Width 15.2 % (11.5-14.5); White Blood Cell Count 5.1 10^3/uL (4.8-10.8)
[2023-12-25 21:00] VITALS: BP 118/48
[2023-12-25 21:27] LABS: ALT (SGPT) 17 U/L (0-35); AST (SGOT) 33 U/L (14-36); Albumin 3.4 g/dl (3.5-5.0); Alkaline Phosphatase 66 U/L (38-126); Blood Urea Nitrogen 22 mg/dl (7-17); Calcium 9.1 mg/dl (8.4-10.2); Carbon Dioxide 21 mmol/L (22-30); Chloride 88 mmol/L (98-107); Glucose 125 mg/dl (70-99); Lipase 190 U/L (23-300); Potassium 3.8 mmol/L (3.5-5.1); Sodium 118 mmol/L (135-145); Total Bilirubin 0.7 mg/dl (0.2-1.3); Total Protein 5.7 g/dl (6.3-8.2)
--- NOTE | 2023-12-25 21:43 | HPS.HSE ---
Family Physician
-
Family Physician: Dada King
Chief Complaint
-
generalized weakness, fatigue
History of Present Illness
83 year old with PMH for atrial fib, HLD, anxiety, htn, type 2 DM, depression right breast ca, CVA RA presented to us with generalized weakness, fatigue progressive getting worse for past few weeks ago. patient stated poor appetite. she is not
eating and drinking very well. she had diarrhea today. denied abdominal pain,n,v. denied fever, chills, chest pain, sob. denied dysuria or hematuria.
noted hyponatremia in ER. admitting for further management. she received normal saline in ER.
patient was just here a month ago. underwent EGD with gastric ulcers. she was not sent home on Carafate and PPI
Medical History
Past Medical History
Past Medical History: Reports Other
Additional Past Medical History:
HLD
anxiety
htn
atrial fib
type 2 DM
depression
right breast ca
cva
RA
Past Surgical History: Reports Other
Additional Past Surgical History:
hysterectomy
laminectomy
blood clot removed from brain
mastectomy
Social History
Tobacco: Non-smoker
Alcohol: None
Drug: None
Living: With Family
Family History
Family History: Not pertinent
Allergies / Home Medications
Allergies reflects when Allergies were last updated in [employer].
Home Medications with original date entered in [employer]
Allergy/Medication List:
Allergies
Allergy/AdvReac Type Severity Reaction Status Date / Time
aspirin [Aspirin] Allergy Shortness Verified 12/25/23 18:19
of Breath
hydralazine AdvReac Intermediate Unknown Uncoded 12/25/23 18:19
Home Medications
amiodarone 200 mg tablet 100 mg PO 1XD AFIB 03/20/23
atorvastatin 10 mg tablet 10 mg PO QPM High Cholesterol 03/20/23
gabapentin 100 mg capsule 100 mg PO BID Pain 03/20/23
metformin 500 mg tablet 500 mg PO QPM Diabetes 03/20/23
metoprolol tartrate 100 mg tablet 50 mg PO BID Blood Pressure 03/20/23
multivitamin 1 tab PO DAILY Supplement 03/20/23
prednisone 2.5 mg tablet 2.5 mg PO DAILY INFLAMMATION 03/20/23
rivaroxaban 15 mg tablet (Xarelto) 15 mg PO QPM Blood Clot Prevention/Tx 03/20/23
lisinopril 2.5 mg tablet 2.5 mg PO DAILY Blood Pressure 11/11/23
meclizine 50 mg tablet 50 mg PO DAILY PRN dizziness 11/11/23
cyanocobalamin (vitamin B-12) 1,000 mcg tablet 1,000 mcg PO DAILY #30 tabs 11/16/23
pantoprazole 40 mg tablet,delayed release 40 mg PO BID #60 tabs 11/16/23
leflunomide 20 mg tablet 20 mg PO DAILY 12/25/23
Review of Systems
-
Constitutional: Reports Fatigue
EENT: Reports No Symptoms
Respiratory: Reports No Symptoms
Cardiac: Reports No Symptoms
Abdomen/GI: Reports Diarrhea
: Reports No Symptoms
Musculoskeletal: Reports No Symptoms
Skin: Reports No Symptoms
Neurological: Reports Weakness
Endocrine: Reports No Symptoms
Hematologic/Lymphatic: Reports No Symptoms
Psych: Reports No Symptoms
Physical Exam
Vital Signs
Vital Signs
Temp Pulse Resp BP Pulse Ox
97.8 F 62 17 141/81 98
12/25/23 18:13 12/25/23 20:23 12/25/23 20:23 12/25/23 18:13 12/25/23 20:23
Physical Exam
General: Well Developed, Well Nourished and No Apparent Distress
HEENT: NormoCephalic, Moist mucous membranes and Atraumatic
Respiratory: Clear
Cardiac: S1/S2 and Regular Rhythm; No Murmur or Rub
GI: Soft, Non Tender, Non Distended and Normal Bowel Sounds; No Organomegaly
Rectal: Deferred by Provider
Musculoskeletal: No Clubbing, No Cyanosis and No Edema
Skin: No Rash
Neuro: AO x 3 and Nonfocal/grossly intact
Psych: Calm
Laboratory Results
-
12/25/23 20:47
12/25/23 20:47
Laboratory Results
Total Bilirubin 0.7 mg/dl (0.2-1.3) 12/25/23 20:47
AST 33 U/L (14-36) 12/25/23 20:47
ALT 17 U/L (0-35) 12/25/23 20:47
Alkaline Phosphatase 66 U/L (38-126) 12/25/23 20:47
Lipase 190 U/L (23-300) 12/25/23 20:47
Lipase Cancelled 12/25/23 20:47
Data Reviewed
-
Lab Data: Labs Reviewed by me
Impression/Plan
-
#weakness likely from poor oral intake
-nutrition consult
-PT/OT consult
#poor oral intake/hxt of gastric ulcers
-recent EGD with Small hiatal hernia. Gastritis with shallow scattered ulcers. Biopsied. Normal examined duodenum. Biopsied.
-will have nutrition see the patient
-PPI continued
#anemia of chronic disease
-hgb stable at 9.8
-no active bleeding
-obtain iron panel
-ctm
#hyponatremia likely hypovolemic
-received normal saline in ER
-will obtain UA, urine sodium, serum osm,
-fluid restriction
-BMP in am
#chronic diastolic heart failure
-TTE :Normal left ventricular size with normal wall thickness. No regional wall
motion abnormalities. Ejection fraction is 55-60%, moderate MR, moderate pulmonary hypertension, pulmonary artery
systolic pressure 53-56 mmHg. left pleural effusion (mild on CT)
-not on diuretics
-fluids restriction
-strict I &O
-daily weight
#Atrial Fibrillation
-Xarelto continued
-continue MIS SPECIALIST Metoprolol
-amiodarone continued
#RA
-prednisone continued
#neuropathy
-gabapentin continued
#essential htn
-lisinopril continued with hold parameters
#DM
-metformin held
-ISS
-CHO diet
Code: DNR
XArelto for DVT PPx
[2023-12-25 22:00] VITALS: BP 129/68
--- NOTE | 2023-12-25 22:08 | W.PN.UPDATE ---
Update Note
Progress Note Update
This note serves as an addendum to the H&P by senior linux systems engineer JANET Sunitha PRINGLE
HPI
83F lives with daughter recent admission (11/11/23- 11/16/23) Dxed Gastritis with shallow scattered ulcers, oteher signifcant PMHX include HX CKD3a, ACDx, chr xarelto for A Fib, DMT2, HTN, Chr prednisone dependent RA BiB daughter for evaluation of
poor POs intake and weakness complicated by Fall.
- I don't have appetite at all
- he has not been eating and drinking for last 6weeks
- associated with weakness for last few days
- had fell this afternoon due to weakness
- has nausea and diarrhea
@ ER VSS stable. HR in 60s on Amiodarone
Significant labs:
Hgb 9.8 - baseline mid 10s
Na 118
Reviewed VS: afebrile , HR 62 BP 140/80
PE
Gen: NAD, Not toxic, conversant and appropriate
HEENT: anicteric , supple , pallor
Neck: supple , no LAD, no JVP elevation
Lungs: CTA
Cor: RRR S1 S2
Abdomen: soft NT NG NRT
SURFACE MOUNT TECHNOLOGY OPERATOR: AAO3, NFND
MS: no edema
Psych: interactive , nl affect and mood
Data
Hgb 9.8 - baseline mid 10s
MCV 80
Na 118
Cl 88
CO2 21
BUN 22
Cr 1.0
eGFR 55 - baseline hi 40s c/w CKD 3a
BG 125
Alb 3.4
Pending Ur Na, Ur Osm, Sr Osm
11/11/23 EGD:
- Small hiatal hernia.
- Gastritis with shallow scattered ulcers.
11/13/23 TTE
LVEF 55-60
Stage II DD
moderate MR
Normal right heart with moderate pulmonary hypertension, pulmonary artery systolic pressure 53-56 mmHg
Last hospitalist admission: 11/11/23- 11/16/23 PDX:PUDx
ASSESSMENT & PLAN
Acute severe hyponatremia due to dehydration 2/2 poor PO intake
Pending Ur Na, Ur Osm, Sr Osm
s/p IV NS 1 L at ER
- check Na after 1 L NS
- till then FR 1.2L
- Trend Na in AM
- To consider Renal consult if NA is still inappropriately corrected in AM
Recently Dxed Gastritis with shallow scattered ulcers.
- cont PO PPI BID
- Cont. anti emetics
Poor appetite
FTT with poor POs at home
- PT/OT
- Cigarette Packing Machine Operator consult
CKD3a suggested by prior Cr and eGFR data
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
Microcytic anemia
- check Ferritin and Fe studies for Fe resuscitation
- Trend Hgb
In NSR
HX Prx AF
- cont Amiodarone, Metoprolol tartrate
- cont. Xarelto
Essential HTN
- cont. Losartan and metoprolol
T2DM
- Held metformin
- add ISS low
HLD
- on atorvastatin
DVT Px: on FOREIGN BANKNOTE TELLER xarelto
Code: DNR
IP TLM
[2023-12-25] MEDS: PROTONIX 40 MG PO (22:17)
[2023-12-25] MEDS: GLUCOPHAGE 500 MG PO (22:17)
[2023-12-25] MEDS: XARELTO 15 MG PO (22:17)
[2023-12-25] MEDS: CARAFATE 1 GRAM PO (22:18)
[2023-12-25] MEDS: LOPRESSOR 50 MG PO (22:18)
[2023-12-25 22:26] LABS: Iron 45 ug/dl (37-170)
[2023-12-25 22:27] LABS: Osmolality Urine 295 mOsm/kg (300-900)
[2023-12-25 22:28] LABS: Urine Albumin Negative (Neg - Trace); Urine Bilirubin Negative (Negative); Urine Character Slightly Cloudy (Clear); Urine Color Yellow; Urine Glucose Negative (Negative); Urine Ketone Negative (Negative); Urine Leukocyte 2+ (Negative); Urine Nitrite Negative (Negative); Urine Occult Blood 4+ (Negative); Urine Urobilinogen Negative (Neg - 1+)
[2023-12-25 22:31] LABS: Osmolality Serum 254 mOsm/kg (275-300)
[2023-12-25 22:36] LABS: Percent Saturation 18 % (20-50); Total Iron Binding Capacity 249 ug/dl (265-497)
[2023-12-25 22:46] LABS: Urine Sodium 58 mmol/L (30-90)
[2023-12-25 22:48] LABS: Urine Bacteria Many (Negative); Urine White Cell 80-90 /HPF (0-5)
[2023-12-25 23:00] VITALS: BP 138/49
[2023-12-25 23:45] VITALS: BP 161/76; BMI 22.1
[2023-12-25 23:53] LABS: Folate > 20.0 ng/ml (2.76-20); Vitamin B12 852 pg/ml (239-931)
[2023-12-25 23:57] VITALS: BP 138/49
[2023-12-26] VITALS (11 sets, daily range): BP systolic 97–174; BP diastolic 44–77; BMI 22.1; BMI 25.0
[2023-12-26] MEDS: COMPAZINE 5 MG IV ×2 (00:17→01:17)
--- NOTE | 2023-12-26 00:30 | PTCARENOTE ---
Received patient from ED via stretcher. Patient pulled over from stretcher to bed. Patient denies pain but reports nausea. STIPPLER made aware, orders for IV compazine. Oriented patient to room and placed call garcia within reach.
[2023-12-26 01:03] LABS: Blood Urea Nitrogen 20 mg/dl (7-17); Calcium 8.8 mg/dl (8.4-10.2); Carbon Dioxide 21 mmol/L (22-30); Chloride 96 mmol/L (98-107); Estimated Creatinine Clearance 32 ml/min; Glucose 80 mg/dl (70-99); Magnesium 1.2 mg/dl (1.6-2.3); Sodium 122 mmol/L (135-145); eGFR > 60.00
[2023-12-26 01:04] LABS: Glucose - Point of Care 85 mg/dl (70-99)
[2023-12-26] MEDS: MELATONIN 5 MG PO (01:16)
[2023-12-26] MEDS: NSS 500 IV (01:16)
[2023-12-26 03:08] LABS: Glucose - Point of Care 105 mg/dl (70-99)
[2023-12-26 06:48] LABS: Hematocrit 25.9 % (37.0-47.0); Hemoglobin 9.1 g/dL (12.0-16.0); Mean Corp Hgb Conc. 35.1 g/dL (33.0-37.0); Mean Corpuscular Hgb 28.4 pg (27.0-31.0); Mean Corpuscular Volume 80.9 fL (81.0-99.0); Mean Platelet Volume 11.6 fL (7.4-10.4); Platelet Count 113 10^3/uL (130-400); Red Cell Dist. Width 14.7 % (11.5-14.5); White Blood Cell Count 8.6 10^3/uL (4.8-10.8)
[2023-12-26 07:20] LABS: Blood Urea Nitrogen 19 mg/dl (7-17); Calcium 8.5 mg/dl (8.4-10.2); Carbon Dioxide 18 mmol/L (22-30); Chloride 95 mmol/L (98-107); Estimated Creatinine Clearance 32 ml/min; Glucose 88 mg/dl (70-99); Potassium 3.9 mmol/L (3.5-5.1); Sodium 119 mmol/L (135-145); eGFR > 60.00
[2023-12-26 07:27] LABS: Glucose - Point of Care 108 mg/dl (70-99)
[2023-12-26 07:45] LABS: Magnesium 1.2 mg/dl (1.6-2.3); Phosphorus 2.7 mg/dl (2.5-4.5)
[2023-12-26 08:17] LABS: Urine Sodium 34 mmol/L (30-90)
[2023-12-26 08:26] LABS: Osmolality Urine 525 mOsm/kg (300-900)
[2023-12-26] MEDS: ROCEPHIN 1000 MG IV (08:43)
[2023-12-26] MEDS: STERILE WATER FOR INJECTION 10 ML IV (08:43)
[2023-12-26] MEDS: NEURONTIN 100 MG PO ×2 (08:45→20:41)
[2023-12-26] MEDS: DELTASONE 2.5 MG PO (08:45)
[2023-12-26] MEDS: PACERONE 100 MG PO (08:45)
[2023-12-26] MEDS: PROTONIX 40 MG PO ×2 (08:45→20:40)
[2023-12-26] MEDS: VITAMIN B-12 1000 MCG PO (08:45)
[2023-12-26] MEDS: LOPRESSOR 50 MG PO ×2 (08:46→20:41)
[2023-12-26] MEDS: MAGNESIUM SULFATE 50 IV (08:46)
--- NOTE | 2023-12-26 08:55 | VNURNOTE ---
Chart reviewed, patient current with [facility] PT. Will follow hospital course and DC plans.
[2023-12-26] MEDS: NOVOLOG FLEXPEN-LOW RESISTANCE SC ×2 (09:29→17:34)
[2023-12-26] MEDS: SODIUM CHLORIDE 3% 250 IV (09:36)
[2023-12-26] MEDS: ZESTRIL 2.5 MG PO (11:03)
[2023-12-26] MEDS: ZOFRAN 4 MG IV (11:16)
--- NOTE | 2023-12-26 11:56 | PTCARENOTE ---
Na 119 this morning. MD aware. 3 % sodium chloride started. Nephrology consult placed. Patient on 1200 ml fluid restriction. Patient with continued complaints of nausea. notified. Zofran administered as ordered. Patient sent for CT scan of
abdomen and pelvis this morning. Magnesium level 1.2 - mag rider administered as ordered.
[2023-12-26 12:27] LABS: Glucose - Point of Care 163 mg/dl (70-99)
[2023-12-26 12:40] LABS: Osmolality Serum 251 mOsm/kg (275-300)
[2023-12-26] MEDS: NOVOLOG FLEXPEN-LOW RESISTANCE 1 UNITS SC (12:54)
[2023-12-26 13:21] LABS: TSH Reflex To Free T4 2.03 uIU/ml (0.47-4.68)
--- NOTE | 2023-12-26 13:45 | W.PN.HOSP.TC ---
Today's Communication/Plan
-
see A/P
Assessment / Plan
Assessment / Plan
83yo F with Hx of breast CA, RA on lefunomide and chronic prednisone, GERD, Afib on Xarelto, HTN, DM, Hx of CVA brought from home with progressing weakness, found severe hyponatremia and concern for UTI, possible pneumonia on CT
Poor oral intake sytarted since Jun 2023 after the flu. Also it worsened with each mainenace treatments for her breast CA
A/P:
#Generalized weakness 2/2 poor oral intake and severe hyponatremia
Serial BMP
Target increase by 4-6meq/24h
3% saline
FLuid restriction since Uosm elevated
Nephrology cosnult
Start Remeron
Stop metformin
Ensule and multivitamins
#Anemia
#Thrombocytopenia
No significant deficiency found, chronic
Check FOBT
Check rertics
hematology consult
#Possible CEFERINO bacterial pneumonia with unspecified organism
Ceftriaxone/Doxy
#Possible UTI
cont ceftriaxone pending Ucx
C showed no hydronephrosis or nephrolithiasis
#Pulmonary edema
#L lateral abdomen edema
#b/l small pulmonary effusions
probably 2/2 poor oral intake
Echo
#DM type 2
stop metformin
check HgbA1c
Insulin ss as per accuchecks, DM diet
#Afib, permanent on Xarelto (will discuss switch to Eliqusi with poor oral intake)
#Essential HTN
#Hx of CVA
cont home meds
#Asymptomatic cholelithiasis
#Diverticulosis
Monitor with PCP for symptoms
#hypomagnesemia
replete and follow
#RA
cont Lefunomide
increase Prednisone
#Hx of Breast CA
Was recently on treatment
DVT ppx on Xarelto
DNR/DNI
I have spent at least 70min reviewing chart, test results, communication with consultants and direct patient care
Anticipated Discharge: > 48 hours
Subjective/Interval History
-
Date of Service: December 26, 2023
Objective Data
-
Labs:
Laboratory Results
12/26/23 12/26/23 12/26/23
06:30 12:09 15:05
WBC 8.6
Hgb 9.1 L
Hct 25.9 L
Plt Count 113 L
Sodium 119 L* Pending Cancelled
Potassium 3.9 Pending Cancelled
Chloride 95 L Pending Cancelled
Carbon Dioxide 18 L Pending Cancelled
BUN 19 H Pending Cancelled
Creatinine 0.9 Pending Cancelled
Glucose 88 Pending Cancelled
Calcium 8.5 Pending Cancelled
12/26/23 12/26/23
19:05 23:05
WBC
Hgb
Hct
Plt Count
Sodium Cancelled Cancelled
Potassium Cancelled Cancelled
Chloride Cancelled Cancelled
Carbon Dioxide Cancelled Cancelled
BUN Cancelled Cancelled
Creatinine Cancelled Cancelled
Glucose Cancelled Cancelled
Calcium Cancelled Cancelled
Vital Signs:
Vital Signs
Temp Pulse Resp BP Pulse Ox
97.7 F 70 18 104/44 96
12/26/23 11:33 12/26/23 11:33 12/26/23 11:33 12/26/23 11:33 12/26/23 11:33
Review of Systems
-
History Source: Patient
All other systems: Reviewed and negative
Physical Exam
-
General: No Apparent Distress
HEENT: Normocephalic
Respiratory: Clear to Auscultation
Cardiac: Regular Rhythm
GI: Soft, Nontender and Nondistended
Genito-urinary: No Costovertebral Tender
Musculoskeletal: No Clubbing, No Cyanosis and No Edema
Skin: Warm
Neuro: Awake, Alert, Oriented and AO x 3
Psych: Calm
--- NOTE | 2023-12-26 13:49 | W.PN.UPDATE ---
Update Note
Progress Note Update
cancelled Echo since recently done - Grade 3 diastolic dysfunction - will start diuresis when sodium improves to 130
--- NOTE | 2023-12-26 14:08 | W.CON.NEPH ---
Consultation
-
Date/Time Consultation Requested: 12/26/2023 7:28AM
Date/Time Consultation Performed: 12/26/2023 2:09PM
Requesting Provider: Susy
Performing Provider: Conrad
Reason for Consultation: hyponatremia
Medical History
-
Chief Complaint: hyponatremia
History of Present Illness:
Ms. Finn is an 83 YOF with PMH of atrial fib, HLD, anxiety, htn, type 2 DM, depression, breast cancer, CVA, RA who presents to the hospital after a mechanical fall. She states that she has been feeling very weak and fatigued, progressively
worsening over the past few weeks. Patient also states that she has been having nausea and diarrhea. She has not been eating or drinking well at all, has no appetite.
Nephrology is consulted for hyponatremia. na was 118 on admission, now at 119. Uosm 295/Naya 58. she has been initiated on 3% saline.
Past Medical History
HLD
anxiety
htn
atrial fib
type 2 DM
depression
right breast ca
cva
RA
Past Surgical History: Other (hysterectomy laminectomy blood clot removed from brain mastectomy)
Social History
Tobacco: Non-Smoker
Alcohol: None
Drug: None
Living: With Family
Family History
Family History: Not Pertinent
Allergies / Home Medications
Allergy/AdvReac Type Severity Reaction Status Date / Time
aspirin [Aspirin] Allergy Shortness Verified 12/25/23 18:19
of Breath
hydralazine AdvReac Intermediate Unknown Uncoded 12/25/23 18:19
�Medication �Instructions �Recorded �Confirmed �Type
amiodarone 200 mg tablet 100 mg PO DAILY AFIB 03/20/23 12/25/23 History
atorvastatin 10 mg tablet 10 mg PO QPM High Cholesterol 03/20/23 12/25/23 History
gabapentin 100 mg capsule 100 mg PO BID Pain 03/20/23 12/25/23 History
metformin 500 mg tablet 500 mg PO QPM Diabetes 03/20/23 12/25/23 History
metoprolol tartrate 100 mg tablet 50 mg PO BID Blood Pressure 03/20/23 12/25/23 History
multivitamin 1 tab PO DAILY Supplement 03/20/23 12/25/23 History
prednisone 2.5 mg tablet 2.5 mg PO DAILY INFLAMMATION 03/20/23 12/25/23 History
rivaroxaban 15 mg tablet (Xarelto) 15 mg PO QPM Blood Clot 03/20/23 12/25/23 History
Prevention/Tx
lisinopril 2.5 mg tablet 2.5 mg PO DAILY Blood Pressure 11/11/23 12/25/23 History
meclizine 50 mg tablet 50 mg PO DAILY PRN dizziness 11/11/23 12/25/23 History
cyanocobalamin (vitamin B-12) 1,000 mcg PO DAILY #30 tabs 11/16/23 12/25/23 Rx
1,000 mcg tablet
pantoprazole 40 mg tablet,delayed 40 mg PO BID #60 tabs 11/16/23 12/25/23 Rx
release
leflunomide 20 mg tablet 20 mg PO DAILY arthritis 12/25/23 12/25/23 History
Review of Systems
-
History Source: Patient
All other systems: Negative unless noted
Constitutional: Weight Loss
Abdomen/GI: Nausea and Diarrhea
Physical Exam
Vital Signs
Vital Signs
Temp Pulse Resp BP Pulse Ox
97.7 F 70 18 104/44 97
12/26/23 11:33 12/26/23 11:33 12/26/23 11:33 12/26/23 11:33 12/26/23 13:59
Lab Results
WBC 8.6 10^3/uL (4.8-10.8) 12/26/23 06:30
RBC 3.20 10^6/uL (4.20-5.40) L 12/26/23 06:30
Hgb 9.1 g/dL (12.0-16.0) L 12/26/23 06:30
Hct 25.9 % (37.0-47.0) L 12/26/23 06:30
Plt Count 113 10^3/uL (130-400) L 12/26/23 06:30
Sodium Cancelled 12/26/23 23:05
Potassium Cancelled 12/26/23 23:05
Chloride Cancelled 12/26/23 23:05
Carbon Dioxide Cancelled 12/26/23 23:05
BUN Cancelled 12/26/23 23:05
Creatinine Cancelled 12/26/23 23:05
eGFR Cancelled 12/26/23 23:05
Glucose Cancelled 12/26/23 23:05
Calcium Cancelled 12/26/23 23:05
Phosphorus 2.7 mg/dl (2.5-4.5) 12/26/23 06:30
Albumin 3.4 g/dl (3.5-5.0) L 12/25/23 20:47
Physical Exam
General: AOx3, No Distress and Nontoxic
HEENT: PERRL, EOMI, Anicteric, Conjunctivae Clear, Ear/Nose Intact, Dentition Intact, Facial Symmetry, Neck Supple, Trachea Midline and Other ([place])
Respiratory: Clear, Crackels (bilateral lung bases), Normal Excursion and Nonlabored Respirations
Cardiac: S1/S2
Breast: N/A
Abdomen: Soft, Nontender, Nondistended, Normal Bowel Sounds and No Hepatosplenomegaly
Rectal: Deferred by Provider
Genito-urinary: No Costovertebral Tender
Musculoskeletal: No Clubbing, No Cyanosis and No Edema
Skin: No Rash, Warm, Dry, No Clubbing, No Cyanosis, Normal Turgor and No Bruising
Neuro: Nonfocal/Grossly Intact
Psych: Mood/afflect pleasant, Insight/judgement good and Appropriate
Data Reviewed
-
CT Scan: Report Reviewed by me (Small to moderate left pleural effusion. Patchy parenchymal opacity within the visualized lingula, which is highly suspicious for pneumonia. Minimal right pleural effusion. Increased reticular and groundglass
opacities within the rest of the visualized lower lungs, which could represent interstit)
Labs: Labs Reviewed by me and Discussed with Patient
Old Records: Reviewed
Assessment/Plan
-
Assessment:
Hyponatremia
Generalized weakness
Diarrhea
Poor PO intake
Anemia
C/f UTI
pulmonary edema and bilateral pleural effusions
Afib
HTN
hypoMg
RA
Plan:
- Na down to 119, was in the 130s during last hospitalization
- initiated on 3% in the setting of SIADH + poor PO intake + dehydration?
- of note urine studies are conflicting and varied
- she might need an extra dose of lasix to increase free water excretion
- please obtain evening BMP to monitor Na trend
- goal Na of 126 by tomorrow AM then can likely try Samsca
[2023-12-26 14:12] LABS: Blood Urea Nitrogen 19 mg/dl (7-17); Calcium 8.4 mg/dl (8.4-10.2); Carbon Dioxide 15 mmol/L (22-30); Chloride 95 mmol/L (98-107); Estimated Creatinine Clearance 26 ml/min; Glucose 164 mg/dl (70-99); Potassium 3.6 mmol/L (3.5-5.1); Sodium 119 mmol/L (135-145); eGFR 49.86
[2023-12-26 14:18] LABS: Glycohemoglobin (HgbA1c) 4.7 % (4.0-5.6)
[2023-12-26] MEDS: VIBRAMYCIN 260 MG IV (14:38)
--- NOTE | 2023-12-26 15:37 | PTCARENOTE ---
Repeat sodium level 119. MD notified. Plan to transfer to IMU.
--- NOTE | 2023-12-26 15:52 | PTCARENOTE ---
Report called to RAVINDRA Jimenez in IMU.
--- NOTE | 2023-12-26 16:00 | CON.ONC ---
Impression
Impression
Weakness, fatigue, poor po intake, diarrhea
Hyponatremia
CKD3
Anemia, in CKD/malignancy
Thrombocytopenia
metastatic breast cancer, on Faslodex (last 11/22/23); PET in late November showed no significant active disease
Plan
Plan
Patient has had mild, chronic thrombocytopenia, often in the low-mid 100s. Suspect further drop in setting of infection
Anemia has been chronic as well, attributed to CKD (fluctuating creatinine 1.2-1.6 over the past year). She's been on outpatient NILS. Suspect acute worsening in the setting of infection.
Treatment of UTI/PNA per primary team
Mgmt of hyponatremia (recurrent) per nephrology
Breast cancer treatment (Faslodex) last given 11/22/23, on hold based on great PET scan and patient's wishes (she felt treatment was causing her diarrhea)
Monitor CBC w/ diff
We will follow along
Patient History
History of Present Illness
This is an 83 yo, known to me for treatment of metastatic breast cancer, who presented to the ER 12/25/23 with weakness and fatigue. She reported poor po intake, and diarrhea. Labs noted for Na+ of 118. She'd been admitted with similar symptoms in
November, Na+ was 128 at admission, and she was diagnosed with gastritis w/ shallow ulcers by EGD, started on PPI and sucralfate. Na+ was up to 130 at discharge and 134 a week later. Further work-up suggested UTI and pneumonia, for which she's now
receiving doxycycline and ceftriaxone.
CBC noted for hgb of 9.8 and platelet count of 138 at admission. Hgb today is 9.1, platelet 113, WBC 8.6. Iron studies are c/w AoCD, with ferritin of 223.
Her breast cancer has been under good control with Faslodex alone. She had a PET updated 11/30/23, showing no significant disease. She requested a few months break in treatment, as she felt her diarrhea and other symptoms were related to Faslodex.
She'd also been receiving monthly aranesp shots for anemia in CKD.
Past-Medical/Surgical History
PMH/PSH - as above, pAfib, CKD3, CVA/TIA
Patient Medication
�Medication �Instructions �Recorded �Confirmed �Last Taken �Type
amiodarone 200 mg tablet 100 mg PO DAILY AFIB 03/20/23 12/25/23 12/25/23 History
atorvastatin 10 mg tablet 10 mg PO QPM High Cholesterol 03/20/23 12/25/23 12/24/23 History
gabapentin 100 mg capsule 100 mg PO BID Pain 03/20/23 12/25/23 12/25/23 History
metformin 500 mg tablet 500 mg PO QPM Diabetes 03/20/23 12/25/23 12/24/23 History
metoprolol tartrate 100 mg tablet 50 mg PO BID Blood Pressure 03/20/23 12/25/23 12/25/23 History
multivitamin 1 tab PO DAILY Supplement 03/20/23 12/25/23 12/25/23 History
prednisone 2.5 mg tablet 2.5 mg PO DAILY INFLAMMATION 03/20/23 12/25/23 12/25/23 History
rivaroxaban 15 mg tablet (Xarelto) 15 mg PO QPM Blood Clot 03/20/23 12/25/23 12/24/23 History
Prevention/Tx
lisinopril 2.5 mg tablet 2.5 mg PO DAILY Blood Pressure 11/11/23 12/25/23 12/25/23 History
meclizine 50 mg tablet 50 mg PO DAILY PRN dizziness 11/11/23 12/25/23 Unknown History
cyanocobalamin (vitamin B-12) 1,000 mcg PO DAILY #30 tabs 11/16/23 12/25/23 12/25/23 Rx
1,000 mcg tablet
pantoprazole 40 mg tablet,delayed 40 mg PO BID #60 tabs 11/16/23 12/25/23 12/25/23 Rx
release
leflunomide 20 mg tablet 20 mg PO DAILY arthritis 12/25/23 12/25/23 12/25/23 History
Active Medications
Generic Name Dose Route Start Last Admin
Trade Name Freq PRN Reason Stop Dose Admin
Acetaminophen 650 mg 12/25/23 23:45
Acetaminophen 325 Mg Tablet PO 01/22/24 23:44
Q4HPRN PRN
mild pain/SCHWARTZ/temp> 100.4F
Amiodarone HCl 100 mg 12/26/23 08:00 12/26/23 08:45
Amiodarone 100 Mg Tablet PO 01/23/24 07:59 100 mg
DAILY ANTHONY Administration
Atorvastatin Calcium 10 mg 12/26/23 18:00
Atorvastatin (Lipitor) 10 Mg Tablet PO 01/23/24 17:59
QPM ANTHONY
Bisacodyl 10 mg 12/25/23 23:45
Bisacodyl 10 Mg Rectal Suppository RECTAL 01/22/24 23:44
[id number] PRN
constipation
Ceftriaxone Sodium 1,000 mg 12/26/23 08:00 12/26/23 08:43
Ceftriaxone 1000 Mg / 10 Ml Vial IV 1,000 mg
Q24H ANTHONY Administration
Cyanocobalamin 1,000 mcg 12/26/23 08:00 12/26/23 08:45
Cyanocobalamin 1,000 Mcg Tablet PO 01/23/24 07:59 1,000 mcg
DAILY ANTHONY Administration
Dextrose 12.5 grams 12/25/23 23:45
Dextrose 50% (0.5 Grams/Ml) 50 Ml Syringe IV 01/22/24 23:44
[id number] PRN
hypoglycemia
Protocol
Gabapentin 100 mg 12/26/23 08:00 12/26/23 08:45
Gabapentin 100 Mg Capsule PO 01/23/24 07:59 100 mg
BID ANTHONY Administration
Glucagon 1 mg 12/25/23 23:45
Glucagon 1 Mg Vial IM 01/22/24 23:44
PRN PRN
hypoglycemia
Protocol
Heparin Sodium (Porcine) 500 unit 12/26/23 00:11 12/26/23 00:19
Heparin Flush Pf (100 Unit/Ml) 5 Ml Syringe IV 01/23/24 00:10 500 unit
PRN PRN Administration
PORT FLUSH
Sodium Chloride 250 mls @ 20 mls/hr 12/26/23 09:00 12/26/23 09:36
Sodium Chloride 3% IV 12/26/23 21:29 250 mls
ONCE ONE Administration
Doxycycline Hyclate 100 mg/ 260 mls @ 260 mls/hr 12/26/23 14:00 12/26/23 14:38
Sodium Chloride IV 260 mls
Q12H ANTHONY Administration
Insulin Aspart 0 units 12/26/23 07:30 12/26/23 12:54
Insulin Aspart Low Resistance 300 Units/3 Ml Pen.Injctr SC 01/23/24 07:29 1 units
AC ANTHONY Administration
Protocol
Lisinopril 2.5 mg 12/26/23 08:00 12/26/23 11:03
Lisinopril 2.5 Mg Tablet PO 01/23/24 07:59 2.5 mg
DAILY ANTHONY Administration
Meclizine HCl 50 mg 12/25/23 23:45
Meclizine 25 Mg Tablet PO
DAILY PRN
dizziness
Metoprolol Tartrate 50 mg 12/26/23 08:00 12/26/23 08:46
Metoprolol 50 Mg Regular Release Tablet PO 01/23/24 07:59 50 mg
BID ANTHONY Administration
Mirtazapine 7.5 mg 12/26/23 22:00
Mirtazapine 7.5 Mg Regular Release Tablet PO 01/23/24 21:59
HS ANTHONY
Multivitamins Therapeutic 1 tablet 12/27/23 08:00
Multivitamin Tablet PO 01/24/24 07:59
DAILY ANTHONY
Non-Formulary Medication 20 mg 12/26/23 08:00
Leflunomide PO 01/23/24 07:59
DAILY ANTHONY
Ondansetron HCl 4 mg 12/26/23 11:03 12/26/23 11:16
Ondansetron 4 Mg/2 Ml Vial IV 01/23/24 11:02 4 mg
Q8HPRN PRN Administration
NAUSEA/VOMITING
Pantoprazole Sodium 40 mg 12/26/23 08:00 12/26/23 08:45
Pantoprazole 40 Mg Delayed Release Tablet PO 01/23/24 07:59 40 mg
BID ANTHONY Administration
Polyethylene Glycol 17 grams 12/25/23 23:45
Polyethylene Glycol Powder 17 Grams Packet PO 01/22/24 23:44
DAILYPRN PRN
constipation
Prednisone 10 mg 12/27/23 08:00
Prednisone 10 Mg Tablet PO 01/24/24 07:59
DAILY ANTHONY
Rivaroxaban 15 mg 12/26/23 18:00
Rivaroxaban 15 Mg Tablet PO 01/23/24 17:59
QPM ANTHONY
Senna/Docusate Sodium 1 tablet 12/25/23 23:45
Docusate W/Senna (Nusrat-Colace) Tablet PO 01/22/24 23:44
BIDPRN PRN
constipation
Sodium Chloride 0 flush 12/25/23 23:00
Sodium Chloride 0.9% (Flush) Syringe IV 01/22/24 22:59
PER PROTOCOL ANTHONY
Sterile Water 10 ml 12/26/23 08:00 12/26/23 08:43
Sterile Water For Injection 10 Ml Vial IV 01/23/24 07:59 10 ml
Q24H ANTHONY Administration
Physical Exam
-
General: Comfortable and Other (sleeping); Negative Respiratory Distress
HEENT: Negative Jaundice
Skin: Warm and Dry
Psych: Negative Agitated
Labs
Lab Results
WBC 8.6 10^3/uL (4.8-10.8) 12/26/23 06:30
RBC 3.20 10^6/uL (4.20-5.40) L 12/26/23 06:30
Hgb 9.1 g/dL (12.0-16.0) L 12/26/23 06:30
Hct 25.9 % (37.0-47.0) L 12/26/23 06:30
MCV 80.9 fL (81.0-99.0) L 12/26/23 06:30
MCH 28.4 pg (27.0-31.0) 12/26/23 06:30
MCHC 35.1 g/dL (33.0-37.0) 12/26/23 06:30
RDW 14.7 % (11.5-14.5) H 12/26/23 06:30
Plt Count 113 10^3/uL (130-400) L 12/26/23 06:30
MPV 11.6 fL (7.4-10.4) H 12/26/23 06:30
Abs Immat Gran (auto) 0.0 10^3/uL (0-0.05) 12/25/23 20:47
Absolute Neuts (auto) 3.4 10^3/uL (1.4-6.5) 12/25/23 20:47
Absolute Lymphs (auto) 1.0 10^3/uL (1.2-3.4) L 12/25/23 20:47
Absolute Monos (auto) 0.7 10^3/uL (0.1-0.6) H 12/25/23 20:47
Absolute Eos (auto) 0.0 10^3/uL (0-0.7) 12/25/23 20:47
Absolute Basos (auto) 0.0 10^3/uL (0-0.2) 12/25/23 20:47
Immature Gran % 0.4 % (0-0.5) 12/25/23 20:47
Neutrophils % 66.5 % (42.2-75.2) 12/25/23 20:47
Lymphocytes % 18.5 % (20.5-51.1) L 12/25/23 20:47
Monocytes % 13.6 % (1.7-9.3) H 12/25/23 20:47
Eosinophils % 0.2 % (0-6) 12/25/23 20:47
Basophils % 0.8 % (0-2) 12/25/23 20:47
Creatinine Cancelled 12/26/23 23:05
Vital Signs
Vital Signs
Temp Pulse Resp BP Pulse Ox
97.6 F 63 18 118/62 94
12/26/23 15:38 12/26/23 15:38 12/26/23 15:38 12/26/23 15:38 12/26/23 15:38
--- NOTE | 2023-12-26 16:30 | PTCARENOTE ---
Received into [id number], IMU monitors placed. IV 3% NS infusing as ordered. OOB to Bsc x2 voids small amts. SR on tele, 97% on RAIR. Denies pain. Appetite fair, picky eater per pt. Fluid restriction maintained. Call garcia in reach.
--- NOTE | 2023-12-26 16:59 | CM ---
Alert awake oriented patient who lives with her daughter Alanna in a 2 story home with 1 steps to enter and bed/bath on first floor.She is assisted in all activities of daily living.Offered VN she was unsure of dc plan .She uses walker and cane.
Had DH VN hx/Was in [place] [facility]
Pharmacy [facility]
PCP Dr King
PLAN Unsure on dc plan Will need PT OT evals
[2023-12-26 17:00] LABS: Glucose - Point of Care 123 mg/dl (70-99)
[2023-12-26] MEDS: XARELTO 15 MG PO (17:57)
[2023-12-26] MEDS: LIPITOR 10 MG PO (17:57)
[2023-12-26 18:11] LABS: Intact PTH 97.9 pg/ml (13.6-85.8)
--- NOTE | 2023-12-26 21:21 | PTCARENOTE ---
Pt received from previous RN. Pt AAO, slightly anxious. Pt spoken to in calm reassuring tone. Pt NSR on monitor. On RA, no SOB. Sat 97%. Pt has small brown formed BM on commode, with assistance of 1. Slow but steady gait. Took HS pills with apple
sauce. Denies further needs at this time, call light in reach.
[2023-12-26] MEDS: REMERON 7.5 MG PO (22:25)
[2023-12-26 22:30] LABS: Glucose - Point of Care 122 mg/dl (70-99)
[2023-12-26 23:05] LABS: Blood Urea Nitrogen 21 mg/dl (7-17); Calcium 8.4 mg/dl (8.4-10.2); Carbon Dioxide 20 mmol/L (22-30); Chloride 101 mmol/L (98-107); Estimated Creatinine Clearance 26 ml/min; Glucose 95 mg/dl (70-99); Potassium 4.1 mmol/L (3.5-5.1); Sodium 125 mmol/L (135-145); eGFR 49.86
[2023-12-27] VITALS (11 sets, daily range): BP systolic 111–169; BP diastolic 22–95; BMI 25.7
[2023-12-27] MEDS: VIBRAMYCIN 260 MG IV ×2 (01:30→14:46)
--- NOTE | 2023-12-27 02:56 | DOWNTIME ---
There was a [employer] Client Access Rn Downtime on 12/27/2023 from 0100 to 12/27/2023 at 0252. Downtime documentation of patient's care, including medication administrations, has been reconciled in the electronic record per guidelines. Refer to the
patient's paper chart under the miscellaneous tab to see printed paper medication records and downtime forms.
[2023-12-27 06:53] LABS: % Basophils 0.3 % (0-2); % Eosinophils 4.1 % (0-6); % Immature Granulocytes 0.5 % (0-0.5); % Neutrophils 66.1 % (42.2-75.2); Absolute Eosinophils 0.3 10^3/uL (0-0.7); Absolute Monocytes 0.8 10^3/uL (0.1-0.6); Hematocrit 23.7 % (37.0-47.0); Mean Corp Hgb Conc. 33.8 g/dL (33.0-37.0); Mean Corpuscular Hgb 28.2 pg (27.0-31.0); Mean Corpuscular Volume 83.5 fL (81.0-99.0); Mean Platelet Volume 11.4 fL (7.4-10.4); Nucleated Red Blood Cells % 0 %; Platelet Count 100 10^3/uL (130-400); Red Blood Cell Count 2.84 10^6/uL (4.20-5.40); Red Cell Dist. Width 15.4 % (11.5-14.5); White Blood Cell Count 6.1 10^3/uL (4.8-10.8)
[2023-12-27 07:33] LABS: ALT (SGPT) 13 U/L (0-35); AST (SGOT) 24 U/L (14-36); Albumin 2.8 g/dl (3.5-5.0); Alkaline Phosphatase 49 U/L (38-126); Blood Urea Nitrogen 19 mg/dl (7-17); Calcium 8.6 mg/dl (8.4-10.2); Carbon Dioxide 20 mmol/L (22-30); Chloride 101 mmol/L (98-107); Estimated Creatinine Clearance 30 ml/min; Glucose 66 mg/dl (70-99); LDH 166 U/L (120-246); Magnesium 1.9 mg/dl (1.6-2.3); Sodium 128 mmol/L (135-145); Total Bilirubin 0.5 mg/dl (0.2-1.3); Total Protein 5.2 g/dl (6.3-8.2); eGFR 49.86
[2023-12-27 07:45] LABS: Glucose - Point of Care 78 mg/dl (70-99)
[2023-12-27] MEDS: NOVOLOG FLEXPEN-LOW RESISTANCE SC ×2 (08:23→17:55)
[2023-12-27 08:36] LABS: Folate 12.8 ng/ml (2.76-20)
--- NOTE | 2023-12-27 08:38 | PTOTSP ---
Orders received, chart reviewed. Patient was transferred to IMU on 12/25 due to Sodium of 119.
PT/OT orders were not continued upon transfer. Will require restart orders when medically appropriate. Will discuss with RN.
[2023-12-27] MEDS: DELTASONE 10 MG PO (08:53)
[2023-12-27] MEDS: PACERONE 100 MG PO (08:53)
[2023-12-27] MEDS: NEURONTIN 100 MG PO ×2 (08:54→20:10)
[2023-12-27] MEDS: ROCEPHIN 1000 MG IV (08:54)
[2023-12-27] MEDS: THERAGRAN 1 TABLET PO (08:54)
[2023-12-27] MEDS: PROTONIX 40 MG PO ×2 (08:54→20:11)
[2023-12-27] MEDS: STERILE WATER FOR INJECTION 10 ML IV (08:54)
[2023-12-27] MEDS: LOPRESSOR 50 MG PO ×2 (08:54→20:11)
[2023-12-27] MEDS: VITAMIN B-12 1000 MCG PO (08:54)
[2023-12-27] MEDS: ZESTRIL 2.5 MG PO (08:54)
[2023-12-27] MEDS: D5W 500 IV (09:00)
--- NOTE | 2023-12-27 10:05 | W.PN.HOSP.TC ---
Today's Communication/Plan
-
Sodium improved to 128 - D5W bolus to avoid overcorrection
Patient has better appetitie
Onc pending
Assessment / Plan
Assessment / Plan
83yo F with Hx of breast CA, RA on lefunomide and chronic prednisone, GERD, Afib on Xarelto, HTN, DM, Hx of CVA brought from home with progressing weakness, found severe hyponatremia and concern for UTI, possible pneumonia on CT
Poor oral intake sytarted since Jun 2023 after the flu. Also it worsened with each maintenance treatments for her breast CA
Improved with treatment for penumonia and with increased Prednisone dose
A/P:
#Generalized weakness 2/2 poor oral intake and severe hyponatremia
Serial BMP
Target increase by 4-6meq/24h
3% saline
FLuid restriction since Uosm elevated
Nephrology consult
Start Remeron
Stop metformin
Ensure and multivitamins
#Anemia
#Thrombocytopenia
No significant deficiency found, chronic
Check FOBT
Reticulocytes WNL - hematology consult
#Possible CEFERINO bacterial pneumonia with unspecified organism
Ceftriaxone/Doxy
#Possible UTI
cont ceftriaxone pending Ucx
C showed no hydronephrosis or nephrolithiasis
#Pulmonary edema
#L lateral abdomen edema
#b/l small pulmonary effusions
probably 2/2 poor oral intake and diastolic dysfunction
Echo done in 11/28 - grade 3 diastolic dysfunction with restrictive physiology. Will need outpatient cardiology follow up
#DM type 2
stop metformin
HgbA1c 4.7%
Insulin ss as per accuchecks, DM diet
#Afib, permanent on Xarelto (will discuss switch to Eliquis with poor oral intake)
#Essential HTN
#Hx of CVA
cont home meds
#Asymptomatic cholelithiasis
#Diverticulosis
Monitor with PCP for symptoms
#hypomagnesemia
replete and follow
#RA
cont Leflunomide
increase Prednisone
#Hx of Breast CA
Was recently on treatment
DVT ppx on Xarelto
DNR/DNI
I have spent at least 35min reviewing chart, test results, communication with consultants and direct patient care
Anticipated Discharge: 24 - 48 hours
Subjective/Interval History
-
Date of Service: December 27, 2023
Objective Data
-
Labs:
Laboratory Results
12/26/23 12/27/23 12/27/23
22:22 06:37 11:00
WBC 6.1
Hgb 8.0 L
Hct 23.7 L
Plt Count 100 L
Sodium 125 L 128 L Pending
Potassium 4.1 4.0 Pending
Chloride 101 101 Pending
Carbon Dioxide 20 L 20 L Pending
BUN 21 H 19 H Pending
Creatinine 1.1 H 1.1 H Pending
Glucose 95 66 L Pending
Calcium 8.4 8.6 Pending
Total Bilirubin 0.5
AST 24
ALT 13
Alkaline Phosphatase 49
Vital Signs:
Vital Signs
Temp Pulse Resp BP Pulse Ox
97.8 F 59 14 141/49 97
12/27/23 07:25 12/27/23 06:00 12/27/23 06:00 12/27/23 06:00 12/27/23 06:00
I&O
12/26/23 12/27/23 12/28/23
06:59 06:59 06:59
Intake Total 2004
Output Total 250 / 250
Balance 1755 / 1755
[2023-12-27] MEDS: NOVOLOG FLEXPEN-LOW RESISTANCE 1 UNITS SC (12:01)
--- NOTE | 2023-12-27 12:09 | W.PN.NEPH.PH ---
Today's Communication / Plan
-
follow labs
FR
Assessment/Plan
-
Assessment:
Hyponatremia
Generalized weakness
Diarrhea
Poor PO intake
Anemia
C/f UTI
pulmonary edema and bilateral pleural effusions
Afib
HTN
hypoMg
RA
Plan:
-Hyponatremia-high ADH mediated U osmo 525, low U na
could be prerenal GI loss and poor po intake, s/p 3% improved sodium from 118-128
s/p 500cc of D5w bolus by primary team
repeat labs pending now
TSH normal and BP labile
cr likely at baseline
if sodium drops more likely 3%
d/w pt and nursing
-
-
Date of Service: December 27, 2023
CC / HPI / ROS
-
Chief Complaint:
hyponatremia
History of Present Illness:
sodium was up at 128 s/p 3% saline
felt to be overcorrection hence given 500cc of D5w by primary
BP labile
no fever
Review of Systems:
no cp or sob
no diarrhea
no dizziness
Labs
-
Labs:
WBC 6.1 10^3/uL (4.8-10.8) 12/27/23 06:37
RBC 2.84 10^6/uL (4.20-5.40) L 12/27/23 06:37
Hgb 8.0 g/dL (12.0-16.0) L 12/27/23 06:37
Hct 23.7 % (37.0-47.0) L 12/27/23 06:37
Plt Count 100 10^3/uL (130-400) L 12/27/23 06:37
eGFR 49.86 12/27/23 06:37
Phosphorus 2.7 mg/dl (2.5-4.5) 12/26/23 06:30
Albumin 2.8 g/dl (3.5-5.0) L 12/27/23 06:37
Physical Exam
-
Vital Signs:
Vital Signs
Temp Pulse Resp BP Pulse Ox
97.8 F 58 13 169/49 96
12/27/23 07:25 12/27/23 10:00 12/27/23 10:00 12/27/23 08:00 12/27/23 08:00
Cardiovascular:: Regular rate and rhythm
Respiratory:: Bilateral: CTA
Lung Excursion:: Normal
Abdomen:: Nontender and Soft
Extremity Edema:: None: Bilateral:
Vallejo Catheter: No
[2023-12-27 12:10] LABS: Glucose - Point of Care 152 mg/dl (70-99)
[2023-12-27 15:33] LABS: Blood Urea Nitrogen 20 mg/dl (7-17); Calcium 8.9 mg/dl (8.4-10.2); Carbon Dioxide 21 mmol/L (22-30); Chloride 102 mmol/L (98-107); Estimated Creatinine Clearance 30 ml/min; Glucose 144 mg/dl (70-99); Potassium 4.1 mmol/L (3.5-5.1); Sodium 128 mmol/L (135-145); eGFR 49.86
[2023-12-27 16:31] LABS: Glucose - Point of Care 147 mg/dl (70-99)
[2023-12-27] MEDS: XARELTO 15 MG PO (17:55)
[2023-12-27] MEDS: LIPITOR 10 MG PO (17:55)
[2023-12-27] MEDS: REMERON 7.5 MG PO (20:12)
[2023-12-27 22:54] LABS: Glucose - Point of Care 188 mg/dl (70-99)
[2023-12-28] VITALS (14 sets, daily range): BP systolic 129–186; BP diastolic 50–88; BMI 25.4
[2023-12-28] MEDS: VIBRAMYCIN 260 MG IV (02:23)
--- NOTE | 2023-12-28 03:14 | PTCARENOTE ---
patient received from day shift. patient is Ax3. Patient was on room air but desat into 70s while sleeping. Applied 2L NC and o2 is 97%. Continuing to monitor patient. call garcia is in reach.
[2023-12-28 06:08] LABS: % Basophils 0.3 % (0-2); % Eosinophils 0.5 % (0-6); % Immature Granulocytes 0.5 % (0-0.5); % Lymphocytes 17.3 % (20.5-51.1); % Monocytes 14.3 % (1.7-9.3); % Neutrophils 67.1 % (42.2-75.2); Absolute Lymphocytes 1.1 10^3/uL (1.2-3.4); Absolute Monocytes 0.9 10^3/uL (0.1-0.6); Absolute Neutrophils 4.4 10^3/uL (1.4-6.5); Hematocrit 25.1 % (37.0-47.0); Hemoglobin 8.6 g/dL (12.0-16.0); Mean Corp Hgb Conc. 34.3 g/dL (33.0-37.0); Mean Corpuscular Hgb 28.9 pg (27.0-31.0); Mean Corpuscular Volume 84.2 fL (81.0-99.0); Mean Platelet Volume 12.7 fL (7.4-10.4); Nucleated Red Blood Cells % 0 %; Platelet Count 117 10^3/uL (130-400); Red Blood Cell Count 2.98 10^6/uL (4.20-5.40); Red Cell Dist. Width 15.7 % (11.5-14.5); White Blood Cell Count 6.6 10^3/uL (4.8-10.8)
[2023-12-28 06:24] LABS: ALT (SGPT) 15 U/L (0-35); AST (SGOT) 29 U/L (14-36); Alkaline Phosphatase 47 U/L (38-126); Blood Urea Nitrogen 22 mg/dl (7-17); Calcium 8.9 mg/dl (8.4-10.2); Carbon Dioxide 21 mmol/L (22-30); Chloride 105 mmol/L (98-107); Estimated Creatinine Clearance 36 ml/min; Glucose 86 mg/dl (70-99); Potassium 4.4 mmol/L (3.5-5.1); Sodium 133 mmol/L (135-145); Total Bilirubin 0.6 mg/dl (0.2-1.3); Total Protein 5.3 g/dl (6.3-8.2); eGFR > 60.00
[2023-12-28 07:49] LABS: Glucose - Point of Care 108 mg/dl (70-99)
[2023-12-28] MEDS: NOVOLOG FLEXPEN-LOW RESISTANCE SC ×3 (07:53→16:20)
[2023-12-28] MEDS: ZESTRIL 2.5 MG PO (08:05)
[2023-12-28] MEDS: PROTONIX 40 MG PO ×2 (08:06→19:45)
[2023-12-28] MEDS: NEURONTIN 100 MG PO ×2 (08:07→19:45)
[2023-12-28] MEDS: STERILE WATER FOR INJECTION 10 ML IV (08:07)
[2023-12-28] MEDS: PACERONE 100 MG PO (08:07)
[2023-12-28] MEDS: ROCEPHIN 1000 MG IV (08:07)
[2023-12-28] MEDS: LOPRESSOR 50 MG PO ×2 (08:07→19:43)
[2023-12-28] MEDS: VITAMIN B-12 1000 MCG PO (08:07)
[2023-12-28] MEDS: DELTASONE 10 MG PO (08:07)
[2023-12-28] MEDS: THERAGRAN 1 TABLET PO (08:07)
--- NOTE | 2023-12-28 09:02 | W.PN.ONC ---
Today's Communication / Plan
-
Patient has had mild, chronic thrombocytopenia, often in the low-mid 100s. Suspect further drop in setting of infection
Anemia has been chronic as well, attributed to CKD (fluctuating creatinine 1.2-1.6 over the past year). She's been on outpatient NILS. Suspect acute worsening in the setting of infection.
Treatment of UTI/PNA per primary team
Mgmt of hyponatremia (recurrent) per nephrology
Breast cancer treatment (Faslodex) last given 11/22/23, on hold based on great PET scan and patient's wishes (she felt treatment was causing her diarrhea)
Monitor CBC w/ diff
12/27 Hgb 8.6, PLT 117
We will follow along
Impression
Impression
Weakness, fatigue, poor po intake, diarrhea
Hyponatremia
CKD3
Anemia, in CKD/malignancy
Thrombocytopenia
Metastatic breast cancer, on Faslodex (last 11/22/23); PET in late November showed no significant active disease
Subjective/Objective
Subjective/Objective
Vital Signs:
Vital Signs
Temp Pulse Resp BP Pulse Ox
97.5 F 65 15 149/69 98
12/28/23 04:24 12/28/23 08:05 12/28/23 04:00 12/28/23 08:05 12/28/23 04:00
Lab Results:
Laboratory Data
WBC 6.6 10^3/uL (4.8-10.8) 12/28/23 05:42
Hgb 8.6 g/dL (12.0-16.0) L 12/28/23 05:42
Plt Count 117 10^3/uL (130-400) L 12/28/23 05:42
eGFR > 60.00 12/28/23 05:42
--- NOTE | 2023-12-28 09:05 | W.PN.ONC2 ---
Today's Communication / Plan
-
follow CBC
Impression
Impression
Weakness, fatigue, poor po intake, diarrhea
Hyponatremia
CKD3
Anemia, in CKD/malignancy
Thrombocytopenia
metastatic breast cancer, on Faslodex (last 11/22/23); PET in late November showed no significant active disease
Plan
Plan
Patient has had mild, chronic thrombocytopenia, often in the low-mid 100s. Suspect further drop in setting of infection
Anemia has been chronic as well, attributed to CKD (fluctuating creatinine 1.2-1.6 over the past year). She's been on outpatient NILS. Suspect acute worsening in the setting of infection.
Treatment of UTI/PNA per primary team
Mgmt of hyponatremia (recurrent) per nephrology
Breast cancer treatment (Faslodex) last given 11/22/23, on hold based on great PET scan and patient's wishes (she felt treatment was causing her diarrhea)
Monitor CBC w/ diff
We will follow along
Subjective/Objective
Chief Complaint
afebrile, no hypoxia or hypotension
Denies pain
denies overt bleeding
Subjective
No new complaints
Vital Signs:
Vital Signs
Temp Pulse Resp BP Pulse Ox
97.5 F 65 15 149/69 98
12/28/23 04:24 12/28/23 08:05 12/28/23 04:00 12/28/23 08:05 12/28/23 04:00
Lab Results:
Laboratory Data
WBC 6.6 10^3/uL (4.8-10.8) 12/28/23 05:42
Hgb 8.6 g/dL (12.0-16.0) L 12/28/23 05:42
Plt Count 117 10^3/uL (130-400) L 12/28/23 05:42
eGFR > 60.00 12/28/23 05:42
Physical Exam
HEENT: Moist Mucous Membranes; No Jaundice
Cardiology: Normal Sinus Rhythm
Pulmonary: Clear
GI: Soft
Extremities: Pulses Present; No Edema
Neuro: Non Focal
Review of Systems
Review of Systems
Review of systems notable for subjective otherwise negative
--- NOTE | 2023-12-28 09:09 | W.PN.HOSP.TC ---
Today's Communication/Plan
-
cont current mgmt pending Ucx before d/c
Assessment / Plan
Assessment / Plan
83yo F with Hx of breast CA, RA on lefunomide and chronic prednisone, GERD, Afib on Xarelto, HTN, DM, Hx of CVA brought from home with progressing weakness, found severe hyponatremia and concern for UTI, possible pneumonia on CT
Poor oral intake sytarted since Jun 2023 after the flu. Also it worsened with each maintenance treatments for her breast CA
Improved with treatment for UTI, pneumonia and with increased Prednisone dose, pending final Ucx before d/c
A/P:
#Generalized weakness 2/2 poor oral intake and severe hyponatremia
Serial BMP
Target increase by 4-6meq/24h
3% saline
Fluid restriction since Uosm elevated
Nephrology consult
Start Remeron
Stop metformin
Ensure and multivitamins
#Anemia
#Thrombocytopenia
No significant deficiency found, chronic
Check FOBT
Reticulocytes WNL - hematology consult
#Possible CEFERINO bacterial pneumonia with unspecified organism
Ceftriaxone/Doxy
#Possible UTI
cont ceftriaxone
pending final Ucx
C showed no hydronephrosis or nephrolithiasis
#Pulmonary edema
#L lateral abdomen edema
#b/l small pulmonary effusions
probably 2/2 poor oral intake and diastolic dysfunction
Echo done in 11/28 - grade 3 diastolic dysfunction with restrictive physiology. Will need outpatient cardiology follow up
#DM type 2
stop metformin
HgbA1c 4.7%
Insulin ss as per accuchecks, DM diet
#Afib, permanent on Xarelto (will discuss switch to Eliquis with poor oral intake)
#Essential HTN
#Hx of CVA
cont home meds
#Asymptomatic cholelithiasis
#Diverticulosis
Monitor with PCP for symptoms
#hypomagnesemia
replete and follow
#RA
cont Leflunomide
increase Prednisone
#Hx of Breast CA
Was recently on treatment
DVT ppx on Xarelto
DNR/DNI
I have spent at least 35min reviewing chart, test results, communication with consultants and direct patient care
Anticipated Discharge: 24 - 48 hours
Subjective/Interval History
-
Date of Service: December 28, 2023
Objective Data
-
Labs:
Laboratory Results
12/28/23
05:42
WBC 6.6
Hgb 8.6 L
Hct 25.1 L
Plt Count 117 L
Sodium 133 L
Potassium 4.4
Chloride 105
Carbon Dioxide 21 L
BUN 22 H
Creatinine 0.9
Glucose 86
Calcium 8.9
Total Bilirubin 0.6
AST 29
ALT 15
Alkaline Phosphatase 47
Vital Signs:
Vital Signs
Temp Pulse Resp BP Pulse Ox
97.5 F 65 15 149/69 98
12/28/23 04:24 12/28/23 08:05 12/28/23 04:00 12/28/23 08:05 12/28/23 04:00
I&O
12/27/23 12/28/23 12/29/23
06:59 06:59 06:59
Intake Total 2004 920 / 920
Output Total 250 / 250 1100 / 1100
Balance 1755 / 1755 -180 / -180
Review of Systems
-
History Source: Patient
All other systems: Reviewed and negative
Physical Exam
-
General: No Apparent Distress
HEENT: Normocephalic
Cardiac: Regular Rhythm
Genito-urinary: No Costovertebral Tender
Musculoskeletal: No Clubbing, No Cyanosis and No Edema
Neuro: Awake, Alert, Oriented and AO x 3
Psych: Calm
[2023-12-28 11:31] LABS: Glucose - Point of Care 133 mg/dl (70-99)
[2023-12-28] MEDS: VIBRAMYCIN 100 MG PO ×2 (12:38→19:44)
--- NOTE | 2023-12-28 13:08 | W.PN.NEPH.PH ---
Today's Communication / Plan
-
ok for d/c
Assessment/Plan
-
Assessment:
Hyponatremia
Generalized weakness
Diarrhea
Poor PO intake
Anemia
C/f UTI
pulmonary edema and bilateral pleural effusions
Afib
HTN
hypoMg
RA
Plan:
-Hyponatremia-high ADH mediated U osmo 525, low U na
could be hypovolemic/prerenal from GI loss and poor po intake
sodium improving to 133
TSH normal and stable BPs
cr at baseline
d/w pt
if d/c BMP next week with PCP
no need FR
-
-
Date of Service: December 28, 2023
CC / HPI / ROS
-
Chief Complaint:
hyponatremia
History of Present Illness:
sodium was up at 133
BP stable
no fever
Review of Systems:
no cp or sob
no diarrhea
Labs
-
Labs:
WBC 6.6 10^3/uL (4.8-10.8) 12/28/23 05:42
RBC 2.98 10^6/uL (4.20-5.40) L 12/28/23 05:42
Hgb 8.6 g/dL (12.0-16.0) L 12/28/23 05:42
Hct 25.1 % (37.0-47.0) L 12/28/23 05:42
Plt Count 117 10^3/uL (130-400) L 12/28/23 05:42
Sodium 133 mmol/L (135-145) L 12/28/23 05:42
Potassium 4.4 mmol/L (3.5-5.1) 12/28/23 05:42
Chloride 105 mmol/L (98-107) 12/28/23 05:42
Carbon Dioxide 21 mmol/L (22-30) L 12/28/23 05:42
BUN 22 mg/dl (7-17) H 12/28/23 05:42
Creatinine 0.9 mg/dL (0.6-1.0) 12/28/23 05:42
eGFR > 60.00 12/28/23 05:42
Glucose 86 mg/dl (70-99) 12/28/23 05:42
Calcium 8.9 mg/dl (8.4-10.2) 12/28/23 05:42
Phosphorus 2.7 mg/dl (2.5-4.5) 12/26/23 06:30
Albumin 3.0 g/dl (3.5-5.0) L 12/28/23 05:42
Physical Exam
-
Vital Signs:
Vital Signs
Temp Pulse Resp BP Pulse Ox
98.2 F 58 16 145/50 97
12/28/23 11:30 12/28/23 10:00 12/28/23 10:00 12/28/23 10:00 12/28/23 10:00
Cardiovascular:: Regular rate and rhythm
Respiratory:: Bilateral: CTA
Lung Excursion:: Normal
Abdomen:: Nontender and Soft
Extremity Edema:: None: Bilateral:
Vallejo Catheter: No
--- NOTE | 2023-12-28 13:32 | PN.CDI ---
CDI
- -
CDI:
Physician Documentation Request
Admit Date: 12/25/23 22:53
Dear Doctor Darrell,
Please review the following and provide your response in the progress notes.
Clinical Indicators:
PN, 12/27
#Generalized weakness 2/2 poor oral intake and severe hyponatremia
#3% saline
#Fluid restriction since Uosm elevated
Nephro, PN, 12/27
#-Hyponatremia-high ADH mediated U osmo 525, low U na
#...could be hypovolemic/prerenal from GI loss and poor po intake
Laboratory Tests
12/25/23 12/26/23 12/26/23
20:47 00:18 06:30
Sodium 118 L* 122 L 119 L*
12/26/23 12/26/23 12/27/23
12:09 22:22 06:37
Sodium 119 L* 125 L 128 L
12/27/23
14:38
Sodium 128 L
Based on the above and your clinical assessment, please clarify in the progress notes, the etiology of the hyponatremia,that supports the above abnormalities and additional evaluation, monitoring and/or treatment rendered:
Inappropriate secretion ADH
Chronic hyponatremia without SIADH
Other(please specify)
Use of terms such as suspected, likely, concern for, or probable (associated with a specific diagnosis that is being evaluated, monitored, or treated as if it exists) are acceptable and can be coded in the inpatient setting, when documented at the
time of discharge.
Thank you,
Alanna Ponce RN BSN CCDS
CDI Specialist
please contact via tiger text
Please use your independent medical judgment in providing your response.
--- NOTE | 2023-12-28 13:42 | PN.CDI ---
Addendum entered and electronically signed by Velasquez Ramírez MD 12/28/23 14:17:
no change in documentation
Original Note:
CDI
- -
CDI:
Physician Documentation Request
Admit Date: 12/25/23 22:53
Dear Doctor,
Please review the following and provide your response in the progress notes.
Clinical Indicators:
Nephrology, PN, 12/25
#- Na down to 119, was in the 130s during last hospitalization
#- initiated on 3% in the setting of SIADH + poor PO intake + dehydration?
#- of note urine studies are conflicting and varied
PN, 12/27
#Generalized weakness 2/2 poor oral intake and severe hyponatremia
#3% saline
#Fluid restriction since Uosm elevated
Nephrology, PN, 12/27
#-Hyponatremia-high ADH mediated U osmo 525, low U na
#...could be hypovolemic/prerenal from GI loss and poor po intake
Laboratory Tests
12/25/23 12/26/23 12/26/23
20:47 00:18 06:30
Sodium 118 L* 122 L 119 L*
12/26/23 12/26/23 12/27/23
12:09 22:22 06:37
Sodium 119 L* 125 L 128 L
12/27/23
14:38
Sodium 128 L
Based on the above and your clinical assessment, please clarify in the progress notes, the etiology of the hyponatremia,that supports the above abnormalities and additional evaluation, monitoring and/or treatment rendered:
SIADH
Inappropriate secretion ADH
Chronic hyponatremia without SIADH
Other(please specify)
Use of terms such as suspected, likely, concern for, or probable (associated with a specific diagnosis that is being evaluated, monitored, or treated as if it exists) are acceptable and can be coded in the inpatient setting, when documented at the
time of discharge.
Thank you
Alanna Ponce RN BSN CCDS
CDI Specialist
please contact via tiger text
Please use your independent medical judgment in providing your response.
[2023-12-28 16:00] LABS: Glucose - Point of Care 135 mg/dl (70-99)
--- NOTE | 2023-12-28 16:57 | CM ---
Patient with Dx weakness, anemai, UTI, possible PNA, pulm edema. O2 2L. Receiving IV Abx. PT & OT Evals pending.
Plan watch for home O2 needs.
Plan follow up after seen by PT/OT.
[2023-12-28] MEDS: NON-FORMULARY ITEM 20 MG PO (17:41)
[2023-12-28] MEDS: XARELTO 15 MG PO (17:41)
[2023-12-28] MEDS: LIPITOR 10 MG PO (17:42)
[2023-12-28 20:11] LABS: Glucose - Point of Care 227 mg/dl (70-99)
[2023-12-28] MEDS: REMERON PO (21:47)
[2023-12-29] VITALS (14 sets, daily range): BP systolic 97–183; BP diastolic 47–71; PULSE 66; O2SAT 97; BMI 25.6; BMI 24.6
--- NOTE | 2023-12-29 04:31 | PTCARENOTE ---
Patient is Ax3 and on room air. No acute events overnight. will continue to monitor patient. call garcia within reach.
[2023-12-29 05:38] LABS: Hemoglobin 8.2 g/dL (12.0-16.0); Mean Corp Hgb Conc. 34.2 g/dL (33.0-37.0); Mean Corpuscular Hgb 28.7 pg (27.0-31.0); Mean Corpuscular Volume 83.9 fL (81.0-99.0); Mean Platelet Volume 12.6 fL (7.4-10.4); Platelet Count 126 10^3/uL (130-400); Red Blood Cell Count 2.86 10^6/uL (4.20-5.40); Red Cell Dist. Width 15.8 % (11.5-14.5); White Blood Cell Count 6.4 10^3/uL (4.8-10.8)
[2023-12-29 06:00] LABS: Blood Urea Nitrogen 26 mg/dl (7-17); Carbon Dioxide 21 mmol/L (22-30); Chloride 105 mmol/L (98-107); Estimated Creatinine Clearance 37 ml/min; Glucose 82 mg/dl (70-99); Potassium 4.1 mmol/L (3.5-5.1); Sodium 134 mmol/L (135-145); eGFR > 60.00
[2023-12-29 07:37] LABS: Glucose - Point of Care 82 mg/dl (70-99)
[2023-12-29] MEDS: NOVOLOG FLEXPEN-LOW RESISTANCE SC ×2 (08:36→12:35)
[2023-12-29] MEDS: ZESTRIL 10 MG PO (08:49)
[2023-12-29] MEDS: PROTONIX 40 MG PO (08:49)
[2023-12-29] MEDS: DELTASONE 10 MG PO (08:49)
[2023-12-29] MEDS: VITAMIN B-12 1000 MCG PO (08:49)
--- NOTE | 2023-12-29 08:49 | W.PN.HOSP.TC ---
Today's Communication/Plan
-
increase Lisinopril
await Ucx
PT/OT
then dc
Assessment / Plan
Assessment / Plan
83yo F with Hx of breast CA, RA on lefunomide and chronic prednisone, GERD, Afib on Xarelto, HTN, DM, Hx of CVA brought from home with progressing weakness, found severe hyponatremia and concern for UTI, possible pneumonia on CT
Poor oral intake sytarted since Jun 2023 after the flu. Also it worsened with each maintenance treatments for her breast CA
Improved with treatment for UTI, pneumonia and with increased Prednisone dose, pending final Ucx before d/c
A/P:
#Generalized weakness 2/2 poor oral intake and severe hyponatremia
Serial BMP
Target increase by 4-6meq/24h
3% saline
Fluid restriction since Uosm elevated
Nephrology consult
Start Remeron
Stop metformin
Ensure and multivitamins
#Anemia
#Thrombocytopenia
No significant deficiency found, chronic
Check FOBT
Reticulocytes WNL - hematology consult
#Possible CEFERINO bacterial pneumonia with unspecified organism
Ceftriaxone/Doxy
#Possible UTI
cont ceftriaxone
pending final Ucx
C showed no hydronephrosis or nephrolithiasis
#Pulmonary edema
#L lateral abdomen edema
#b/l small pulmonary effusions
probably 2/2 poor oral intake and diastolic dysfunction
Echo done in 11/28 - grade 3 diastolic dysfunction with restrictive physiology. Will need outpatient cardiology follow up
#DM type 2
stop metformin
HgbA1c 4.7%
Insulin ss as per accuchecks, DM diet
#Afib, permanent on Xarelto (will discuss switch to Eliquis with poor oral intake)
#Essential HTN
#Hx of CVA
cont home meds
#Asymptomatic cholelithiasis
#Diverticulosis
Monitor with PCP for symptoms
#hypomagnesemia
replete and follow
#RA
cont Leflunomide
increase Prednisone
#Hx of Breast CA
Was recently on treatment
#Essential HTN
titrate medication to target normotension
DVT ppx on Xarelto
DNR/DNI
I have spent at least 35min reviewing chart, test results, communication with consultants and direct patient care
Anticipated Discharge: Within 24 hours
Subjective/Interval History
-
Date of Service: December 29, 2023
Objective Data
-
Labs:
Laboratory Results
12/29/23
05:18
WBC 6.4
Hgb 8.2 L
Hct 24.0 L
Plt Count 126 L
Sodium 134 L
Potassium 4.1
Chloride 105
Carbon Dioxide 21 L
BUN 26 H
Creatinine 0.9
Glucose 82
Calcium 9.0
Vital Signs:
Vital Signs
Temp Pulse Resp BP Pulse Ox
97.9 F 64 18 183/64 95
12/29/23 07:00 12/29/23 06:14 12/29/23 06:14 12/29/23 06:14 12/29/23 06:14
I&O
12/28/23 12/29/23 12/30/23
06:59 06:59 06:59
Intake Total 920 / 920
Output Total 1100 / 1100 600 / 600
Balance -180 / -180 -600 / -600
Review of Systems
-
History Source: Patient
All other systems: Reviewed and negative
Physical Exam
-
General: No Apparent Distress
HEENT: Normocephalic and Atraumatic
Respiratory: Clear to Auscultation
Cardiac: Regular Rhythm
GI: Soft, Nontender and Nondistended
Musculoskeletal: No Clubbing, No Cyanosis and No Edema
Skin: Warm
Neuro: Awake, Alert, Oriented and AO x 3
Psych: Calm
[2023-12-29] MEDS: THERAGRAN 1 TABLET PO (08:50)
[2023-12-29] MEDS: LOPRESSOR 50 MG PO (08:50)
[2023-12-29] MEDS: PACERONE 100 MG PO (08:50)
[2023-12-29] MEDS: VIBRAMYCIN 100 MG PO (08:50)
[2023-12-29] MEDS: STERILE WATER FOR INJECTION 10 ML IV (08:50)
[2023-12-29] MEDS: ROCEPHIN 1000 MG IV (08:50)
[2023-12-29] MEDS: NEURONTIN 100 MG PO (08:50)
[2023-12-29] MEDS: NON-FORMULARY ITEM 20 MG PO (08:50)
--- NOTE | 2023-12-29 10:32 | PTCARENOTE ---
Patient AAOx3, very forgetful. Bed alarm on for safety. VSS. C/o loose/piecy stools, 2 BMs this morning. Still with urinary urgency. Continuing to monitor. Likely to be DCd today.
--- NOTE | 2023-12-29 10:56 | W.DCSUMMARY ---
Addendum entered and electronically signed by Velasquez Ramírez MD 12/29/23 10:59:
Daughter also verbalized understanding of the instruxctions
Original Note:
Discharge Summary
Discharge Data
Date of Admission: 12/25/23
Date of Discharge: 12/29/23
-
Pending Results: No
Hospital Course
83yo F with Hx of breast CA, RA on lefunomide and chronic prednisone, GERD, Afib on Xarelto, HTN, DM, Hx of CVA brought from home with progressing weakness, found severe hyponatremia and concern for UTI, possible pneumonia on CT
Poor oral intake sytarted since Jun 2023 after the flu. Also it worsened with each maintenance treatments for her breast CA
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
Improved with treatment for UTI, pneumonia and with increased Prednisone dose, pending final Ucx before d/c. Not lethargic, ambulating in the room, appropriate mentation. Prednisone to be tapered down by her established doctor
I have spent at least 38min discharging the patient
Patient was managed for:
#Generalized weakness 2/2 poor oral intake and severe hyponatremia
#Anemia
#Thrombocytopenia
#Possible CEFERINO bacterial pneumonia with unspecified organism
#UTI
#Pulmonary edema
#L lateral abdomen edema
#b/l small pulmonary effusions
#DM type 2
#Afib, permanent on Xarelto (will discuss switch to Eliquis with poor oral intake)
#Essential HTN
#Hx of CVA
#Asymptomatic cholelithiasis
#Diverticulosis
#hypomagnesemia
#RA
#Hx of Breast CA
#Essential HTN
Discharge Plan
-
Patient Disposition: Home (Routine Discharge)
Discharge Diagnosis/Procedures: UTI, pneumonia
Diet: Regular
Activity: As tolerated
Driving Restrictions: As prior to admission
Other Services: PT
Referrals:
Dada King DO [Family Provider] -
Prescriptions:
New
prednisone 10 mg Tablet
10 mg PO DAILY Qty: 30 0RF
sennosides-docusate sodium 8.6-50 mg Tablet
1 tab PO BIDPRN PRN (Reason: constipation) Qty: 30 0RF
mirtazapine 7.5 mg Tablet
7.5 mg PO HS Qty: 30 0RF
multivitamin with folic acid [Tab-A-Jose] 400 mcg Tablet
1 tab PO DAILY Qty: 30 0RF
doxycycline hyclate 100 mg Capsule
100 mg PO Q12 Qty: 8 0RF
lisinopril 10 mg Tablet
10 mg PO DAILY Qty: 30 0RF
cefuroxime axetil 500 mg tablet
500 mg PO Q12H Qty: 8 0RF
Continued
multivitamin Tablet
1 tab PO DAILY
atorvastatin 10 mg Tablet
10 mg PO QPM
metoprolol tartrate 100 mg Tablet
50 mg PO BID
amiodarone 200 mg Tablet
100 mg PO DAILY
gabapentin 100 mg Capsule
100 mg PO BID
Xarelto 15 mg Tablet
15 mg PO QPM
meclizine 50 mg Tablet
50 mg PO DAILY PRN (Reason: dizziness)
pantoprazole 40 mg Tablet,Delayed Release (Dr/Ec)
40 mg PO BID Qty: 60 0RF
cyanocobalamin (vitamin B-12) 1,000 mcg Tablet
1,000 mcg PO DAILY Qty: 30 0RF
leflunomide 20 mg tablet
20 mg PO DAILY
Discontinued
metformin 500 mg Tablet
500 mg PO QPM
prednisone 2.5 mg Tablet
2.5 mg PO DAILY
lisinopril 2.5 mg Tablet
2.5 mg PO DAILY
Discharge Orders:
Discharge Patient (As Directed); Ordered 12/29/23
Ordered By: Velasquez Ramírez
Discharge Date and Time
Print Language: MICRONESIAN
--- NOTE | 2023-12-29 11:08 | CM ---
Patient seen at bedside. Patient for discharge with physician order. Patient daughter confirmed physician had called her. Patient for discharge home with [facility] to follow. [facility] had just completed working with patient approx several weeks ago. Patient
stated that she did not realize that she was going home. IMM completed and signed form placed on chart. CM sent tt to liaison from [facility] and requested review. Patient daughter to transport patient home sometime early afternoon after patient is seen
by PT/OT. CM spoke with therapy and they are aware of plan. CM will continue to follow for discharge planning needs.
Plan; [facility] with [facility] to follow
--- NOTE | 2023-12-29 11:21 | VNURNOTE ---
Received update that patient is going home. Resumption referral in [facility]. Edie in [facility] intake aware.
[2023-12-29 12:20] LABS: Glucose - Point of Care 132 mg/dl (70-99)
--- NOTE | 2023-12-29 12:51 | PTCARENOTE ---
Reviewed DC packet with patient. All questions answered. IV and tele removed. IV team to remove SQ port. VSS. Daughter to pickling operator soon. Continuing to monitor until daughter comes. Home med placed in patients belonging bag.
--- NOTE | 2023-12-29 14:09 | VATNOTE ---
left port deaccessed per protocol . brisk blood return noted prior to. awaiting daughter's arrival.
--- NOTE | 2023-12-29 16:23 | W.PN.NEPH.PH ---
Today's Communication / Plan
-
- for dc
Assessment/Plan
-
Assessment:
Hyponatremia
Generalized weakness
Diarrhea
Poor PO intake
Anemia
C/f UTI
pulmonary edema and bilateral pleural effusions
Afib
HTN
hypoMg
RA
Plan:
-Hyponatremia-high ADH mediated U osmo 525, low U na
could be hypovolemic/prerenal from GI loss and poor po intake
sodium improving to 134
TSH normal and stable BPs
cr at baseline
d/w pt
if d/c BMP next week with PCP
no need FR
-
-
Date of Service: December 29, 2023
CC / HPI / ROS
-
Chief Complaint:
hyponatremia
History of Present Illness:
sodium was up at 134
BP stable
no fever
Review of Systems:
no cp or sob
no diarrhea
Labs
-
Labs:
WBC 6.4 10^3/uL (4.8-10.8) 12/29/23 05:18
RBC 2.86 10^6/uL (4.20-5.40) L 12/29/23 05:18
Hgb 8.2 g/dL (12.0-16.0) L 12/29/23 05:18
Hct 24.0 % (37.0-47.0) L 12/29/23 05:18
Plt Count 126 10^3/uL (130-400) L 12/29/23 05:18
Sodium 134 mmol/L (135-145) L 12/29/23 05:18
Potassium 4.1 mmol/L (3.5-5.1) 12/29/23 05:18
Chloride 105 mmol/L (98-107) 12/29/23 05:18
Carbon Dioxide 21 mmol/L (22-30) L 12/29/23 05:18
BUN 26 mg/dl (7-17) H 12/29/23 05:18
Creatinine 0.9 mg/dL (0.6-1.0) 12/29/23 05:18
eGFR > 60.00 12/29/23 05:18
Glucose 82 mg/dl (70-99) 12/29/23 05:18
Calcium 9.0 mg/dl (8.4-10.2) 12/29/23 05:18
Phosphorus 2.7 mg/dl (2.5-4.5) 12/26/23 06:30
Albumin 3.0 g/dl (3.5-5.0) L 12/28/23 05:42
Physical Exam
-
Vital Signs:
Vital Signs
Temp Pulse Resp BP Pulse Ox
97.8 F 67 16 116/65 96
12/29/23 11:00 12/29/23 14:00 12/29/23 14:00 12/29/23 13:30 12/29/23 12:44
Cardiovascular:: Regular rate and rhythm
Respiratory:: Bilateral: Coarse
Lung Excursion:: Normal
Abdomen:: Nontender and Soft
Bowel Sounds:: Normal
Extremity Edema:: None: Bilateral:
[place] Catheter: No
== END 2023-12-29 14:34 | disposition home health service (06) | DRG 640 ==
LOC: IMU 22:53
PROVIDERS: Emergency Medicine; Nurse Practitioner Family; Registered Nurse; ADMITTING PHYSICIAN Internal Medicine; ATTENDING PHYSICIAN Internal Medicine; CONSULT PHYSICIAN Internal Medicine Hematology & Oncology; CONSULT PHYSICIAN Student in an Organized Health Care Education/Training Program; EMERGENCY PHYSICIAN Student in an Organized Health Care Education/Training Program; FAMILY PHYSICIAN Family Medicine
DX: E87.1 Hypo-osmolality and hyponatremia (principal); J18.9 Pneumonia, unspecified organism; I48.21 Permanent atrial fibrillation; I50.32 Chronic diastolic (congestive) heart failure; I13.0 Hypertensive heart and chronic kidney disease with heart failure and stage 1 through stage 4 chronic kidney disease, or unspecified chronic kidney disease; C79.9 Secondary malignant neoplasm of unspecified site; N39.0 Urinary tract infection, site not specified; Z66 Do not resuscitate; E78.00 Pure hypercholesterolemia, unspecified; E83.42 Hypomagnesemia; E86.1 Hypovolemia; E11.22 Type 2 diabetes mellitus with diabetic chronic kidney disease; F32.A Depression, unspecified; F41.9 Anxiety disorder, unspecified; D63.8 Anemia in other chronic diseases classified elsewhere; Z87.11 Personal history of peptic ulcer disease; R53.1 Weakness; N18.31 Chronic kidney disease, stage 3a; D63.1 Anemia in chronic kidney disease; M06.9 Rheumatoid arthritis, unspecified; E86.0 Dehydration; K21.9 Gastro-esophageal reflux disease without esophagitis; D69.6 Thrombocytopenia, unspecified; K57.30 Diverticulosis of large intestine without perforation or abscess without bleeding; K29.70 Gastritis, unspecified, without bleeding; R62.7 Adult failure to thrive; K80.20 Calculus of gallbladder without cholecystitis without obstruction; C50.911 Malignant neoplasm of unspecified site of right female breast; Z88.6 Allergy status to analgesic agent; Z86.73 Personal history of transient ischemic attack (TIA), and cerebral infarction without residual deficits; Z85.3 Personal history of malignant neoplasm of breast; Z79.899 Other long term (current) drug therapy; Z79.84 Long term (current) use of oral hypoglycemic drugs; Z79.01 Long term (current) use of anticoagulants; Z79.52 Long term (current) use of systemic steroids
CPT/HCPCS: 74176; 80048; 80053; 81003; 81015; 82570; 82607; 82728; 82746; 82962; 83036; 83540; 83550; 83615; 83690; 83735; 83930; 83935; 83970; 84100; 84300; 84443; 85025; 85027; 85045; 86850; 86900; 86901; 87077; 87086; 87186; 93005; 93306; 96361; 96374; 97116; 97163; 97166; 99285